=== PATIENT | female | born 1955 | race Caucasian/White ===

== ENCOUNTER 2019-02-18 12:01 | Inpatient (IN) ==
[2019-02-18 12:39] LABS: Basophils # (auto) 0.04 K/uL (0-0.2); Basophils % (auto) 1.1 %; Eosinophils # (auto) 0.11 K/uL (0-0.5); Eosinophils % (auto) 2.9 %; Hematocrit (blood only) 37.4 % (37-47); Hemoglobin 12.8 g/dL (12.0-16.0); Lymphocytes # (auto) 0.87 K/uL (1.2-3.4); Lymphocytes % (auto) 23.1 %; Mean Corpuscular Hgb Conc 34.2 g/dL (32-36); Mean Corpuscular Volume 104.2 fL (80-100); Mean Platelet Volume 10.1 fL (7.4-10.4); Monocytes # (auto) 0.55 K/uL (0.11-0.59); Monocytes % (auto) 14.6 %; Neutrophils # (auto) 2.19 K/uL (1.4-6.5); Neutrophils % (auto) 58.3 %; Platelet Count 258 K/uL (130-400); RDW Coefficient of Variation 12.4 % (11.5-14.5); RDW Standard Deviation 47.1 fL (36.4-46.3); Red Blood Count 3.59 M/uL (4.2-5.4); White Blood Count 3.76 K/uL (4.8-10.8)
--- NOTE | 2019-02-18 12:46 | CT Scan Report ---
CT head/brain wo con CT DOSE: 767.83 mGy.cm HISTORY: Mental status change altered loc TECHNIQUE: Multiaxial CT images of the head were performed without the use of intravenous contrast. A dose lowering technique was utilized adhering to the principles of ALARA. Comparison: None. Findings: The paranasal sinuses and mastoid air cells are clear. The calvarium and skull base are int act. The ventricles and sulci are within normal limits. There is no mass, hematoma, midline shift, or acute infarct. Mild atrophy and chronic small vessel change. Impression: No acute intracranial abnormality. Mild age-related atrophy and chronic small vessel change. The above report was generated using voice recognition software. It may contain grammatical, syntax or spelling errors. Electronically signed by: Rell Ambrocio M.D. 02/18/2019 12:45 PM
--- NOTE | 2019-02-18 12:49 | XRay Report ---
XR chest 1V portable CLINICAL HISTORY: weakness dyspnea COMPARISON STUDY: No previous studies for comparison. FINDINGS: The bones soft tissues and hemidiaphragms are normal. The cardiomediastinal silhouette is n ormal. The lungs are clear. The pulmonary vasculature is normal. IMPRESSION: Negative chest. The above report was generated using voice recognition software. It may contain grammatical, syntax or spelling errors. Electronically signed by: Rell Ambrocio M.D. 02/18/2019 12:48 PM
[2019-02-18 12:51] LABS: Alanine Aminotransferase 22 U/L (12-78); Albumin Level 4.1 gm/dl (3.4-5.0); Aspartate Aminotransferase 15 U/L (15-37); BUN Creatinine Ratio 7.5 (10-20); Blood Urea Nitrogen 7 mg/dl (7-18); Calcium 10.4 mg/dl (8.5-10.1); Carbon Dioxide 22 mmol/L (21-32); Chloride 109 mmol/L (98-107); Creatinine Clr Calc Pharmacy 44.3 ml/min; Est GFR (African American) 72.4; Est GFR (Non-African American) 62.5; Glucose 90 mg/dl (70-99); Potassium 3.5 mmol/L (3.5-5.1); Sodium 140 mmol/L (136-145)
[2019-02-18 13:02] LABS: Albumin Globulin Ratio 1.5 (0.9-2); Alkaline Phosphatase 60 U/L (45-117); Bilirubin,Total 0.5 mg/dl (0.2-1); Globulin 2.8 gm/dl (2.5-4.0); Total Protein 6.9 gm/dl (6.4-8.2); Troponin I < 0.015 ng/ml (0-0.045)
[2019-02-18 13:13] LABS: Acetaminophen < 2 ug/ml (10-30); Lithium 1.8 mmol/L (0.6-1.2)
[2019-02-18 13:38] LABS: Appearance Urine Clear (Clear); Bacteria Urine Automated Negative (Negative); Bilirubin Urine Negative (Negative); Blood Urine Negative (Negative); Color Urine Yellow; Epithelial Cell Urine Auto >30 /lpf (0-5); Glucose Urine UA Negative (Negative); Ketones Urine 1+ (Negative); Leukocyte Esterase Urine 2+ (Negative); Nitrite Urine Negative (Negative); Protein Urine Negative (Negative); RBC Urine Automated 0-4 /hpf (0-4); Specific Gravity Urine 1.012 (1.000-1.030); Urobilinogen Urine Negative (Negative)
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
[2019-02-18] MEDS ORDERED: ALBUTEROL HFA 8 GM INHALER INH PRN (15:09)
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
[2019-02-18] MEDS ORDERED: PHARMACIST DISCHARGE MED REC CONSULT PRN (17:19)
[2019-02-18] MEDS ORDERED: THIAMINE HCL 100 MG in SYRINGE 9 ML IV ONE (18:15)
[2019-02-18 18:32] LABS: Prothrombin Time 10.2 Seconds (9.0-12.0)
--- NOTE | 2019-02-18 20:23 | Magnetic Resonance Report ---
MRI OF THE BRAIN WITHOUT IV CONTRAST CLINICAL HISTORY: Change in mental status. COMPARISON STUDY: CT of the brain dated 02/18/2019. TECHNIQUE: MRI of the brain was performed utilizing various T1 and T2-weighted sequences in the axial , sagittal, and coronal planes. IV contrast was not administered for this examination. The Examinatio n is severely compromised by motion artifact. FINDINGS: Brain parenchyma: There is age-related involutional change noting mild subcortical and periventricula r microangiopathic disease. There is no evidence of hemorrhage. There is no mass effect. There is no restricted diffusion to suggest acute ischemia. [place]iz[place]-white matter differentiation is preserved. No ex tra-axial fluid collection is seen. The cerebellar tonsils are normal in configuration. Ventricles, sulci, and cisterns: Prominent secondary to involutional change. Pituitary and sella: Partially empty sella is incidentally noted. Intracranial vasculature: The flow voids at the skull base are intact as imaged. Orbits: The bony orbits are grossly intact. Orbital contents are grossly normal as imaged. Sinuses and mastoids: Mucosal thickening is noted in the left frontal sinus. The remaining paranasal sinuses are clear. There is a left mastoid effusion. Calvarium: Unremarkable. Cervical cord: Partially visualized cervical spinal cord is gross normal in morphology and signal int ensity. IMPRESSION: There is no evidence of hemorrhage, mass effect, or acute ischemia noting a severely rita on compromised examination. Electronically signed by: Lai Luque M.D. 02/18/2019 8:22 PM
[2019-02-18] MEDS: BECLOMETHASONE DIP HFA 40 MCG 8.7G INH INH SCH (20:56)
[2019-02-18] MEDS: HEPARIN SOD 5,000 UNIT/0.5 ML VIAL SQ SCH ×2 (20:56→21:02)
[2019-02-19] MEDS ORDERED: ZOLPIDEM TARTRATE 5 MG TAB PO PRN (00:34)
[2019-02-19] MEDS ORDERED: cloNIDine HCl 0.1 MG TAB PO PRN (00:34)
[2019-02-19] MEDS ORDERED: HydrALAZINE HCL 20 MG/ML VIAL IV PRN (00:41)
[2019-02-19] MEDS ORDERED: HydrALAZINE HCL 20 MG/ML VIAL IV ONE (00:41)
[2019-02-19] MEDS: HEPARIN SOD 5,000 UNIT/0.5 ML VIAL SQ SCH ×3 (06:14→20:24)
[2019-02-19 06:37] LABS: Hematocrit (blood only) 37.9 % (37-47); Hemoglobin 12.8 g/dL (12.0-16.0); Mean Corpuscular Hgb Conc 33.8 g/dL (32-36); Mean Corpuscular Volume 103.8 fL (80-100); Mean Platelet Volume 10.3 fL (7.4-10.4); Platelet Count 269 K/uL (130-400); RDW Coefficient of Variation 12.4 % (11.5-14.5); RDW Standard Deviation 47.4 fL (36.4-46.3); Red Blood Count 3.65 M/uL (4.2-5.4)
[2019-02-19 06:46] LABS: Estimated Average Glucose 94 mg/dl; Hemoglobin A1C 4.9 % (4.5-5.6)
[2019-02-19 07:13] LABS: BUN Creatinine Ratio 8.2 (10-20); Calcium 9.7 mg/dl (8.5-10.1); Est GFR (African American) 91.7; Est GFR (Non-African American) 79.1; Potassium 3.4 mmol/L (3.5-5.1)
[2019-02-19 07:17] LABS: Amphetamines+Metham, Urine Neg (Neg); Barbiturates, Urine Neg (Neg); Benzodiazepine, Urine Neg (Neg); Cocaine, Urine Neg (Neg); MDMA (Ecstacy), Urine Neg (Neg); Methadone, Urine Neg (Neg); Opiate, Urine Neg (Neg); Phencyclidine, Urine Neg (Neg)
[2019-02-19] MEDS: PANTOprazole 40 MG TAB PO SCH (08:28)
[2019-02-19] MEDS: THIAMINE HCL 100 MG TAB PO SCH (08:29)
[2019-02-19] MEDS: BECLOMETHASONE DIP HFA 40 MCG 8.7G INH INH SCH ×2 (08:29→20:24)
[2019-02-19 09:49] LABS: Folate (Folic Acid) 15.51 ng/ml (>5.38)
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
--- NOTE | 2019-02-19 11:06 | Ultrasound Report ---
CAROTID ARTERY ULTRASOUND CLINICAL HISTORY: stroke like symptoms, AMS COMPARISON STUDY: None. TECHNIQUE: Real-time, grayscale, and color Doppler sonography of the carotid and vertebral arteries w as performed. Images were viewed in the transverse and longitudinal planes. FINDINGS: There is mild atherosclerotic plaque. Velocity measurements are listed below. COMMON CAROTID PEAK SYSTOLIC VELOCITY (CM/S): RIGHT 66 LEFT 77 ICA PEAK SYSTOLIC VELOCITY (CM/S): RIGHT 68 LEFT 67 Systolic ratios between the internal to common carotid arteries are normal. Antegrade flow is seen in the vertebral arteries. The external carotid arteries are patent. Blood pressure was not obtained due to IV. IMPRESSION: No evidence of a hemodynamically significant stenosis. Electronically signed by: Naresh Guzman M.D. 02/19/2019 11:05 AM
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
[2019-02-19] MEDS: ACETAMINOPHEN 325 MG TAB PO PRN (17:06)
[2019-02-19] MEDS ORDERED: POTASSIUM CHLORIDE 10 MEQ TABCR PO STA (18:48)
[2019-02-19] MEDS: TRAZODONE HCL 50 MG TAB PO PRN (20:24)
[2019-02-20] MEDS: HEPARIN SOD 5,000 UNIT/0.5 ML VIAL SQ SCH ×3 (05:13→22:16)
[2019-02-20 06:57] LABS: BUN Creatinine Ratio 6.5 (10-20); Calcium 10.1 mg/dl (8.5-10.1); Creatinine Clr Calc Pharmacy 42.3 ml/min; Est GFR (African American) 74.3; Est GFR (Non-African American) 64.1
[2019-02-20] MEDS: BECLOMETHASONE DIP HFA 40 MCG 8.7G INH INH SCH ×2 (08:26→22:15)
[2019-02-20] MEDS: THIAMINE HCL 100 MG TAB PO SCH (08:26)
[2019-02-20] MEDS: PANTOprazole 40 MG TAB PO SCH (08:26)
--- NOTE | 2019-02-20 11:40 | Psychiatric Progress Note ---
Date of Service February 20, 2019 Impression / Recommendations Impression 63 yo female with a diagnosis of bipolar disorder presented with significant lithium toxicity of unclear origin (renal function seems intact). She denies taking other than prescribed and age can impact clearance. Likely present for several weeks given her symptoms of weakness, increased tremor noted at neurology appt in January. Seroquel was reportedly d/c during that time so any manic symptoms could be less controlled. Although the patient is not acutely psychotic or suicidal, I do feel that she is unable to care for herself outside of the hospital due to her bipolar disorder and there is no meaningful collat eral currently available to better understand how she became lithium toxic. Hold psych meds at this time. Avoid benzos and anticholinergics. low dose prn Haldol 1 mg may be appropriate if unwilling to take Seroquel 25 mg prn in acute setting. Primary consult team to reassess patient in am to determine if petition should be filed for ongoing involuntary hospitalization. Risk Factors Assessment Do You Have Access To A Gun?: No Subjective Subjective Patient was seen & assessed and interval progress reviewed with Nursing. Some improvement from yesterday, lithium level still 1.0 this am, confirmed there is a repeat in the am to determine dosing at which to restart lithium (assuming mental status change and her gait issues have resolved). Still requiring 1 assist to bathroom and states she doesn't want to eat. Physical Exam Vital Signs (Past 24 Hours) Last Vital Signs Temp 36.6 C 02/20/19 11:27 Pulse 105 H 02/20/19 11:27 Resp 20 02/20/19 11:27 BP 119/82 02/20/19 11:27 Pulse Ox 96 02/20/19 11:27 Results & Data Laboratory Results Laboratory Results - last 24 hr 02/20/19 02/20/19 05:47 05:47 Sodium 138 Potassium 4.0 D Chloride 110 H Carbon Dioxide 25 Anion Gap 3.0 BUN 6 L Creatinine 0.94 Est Cr Clr Drug Dosing 42.3 Est GFR ( Amer) 74.3 Est GFR (Non-Af Amer) 64.1 BUN/Creatinine Ratio 6.5 L Glucose 95 Calcium 10.1 [place] 1.0 Current Inpatient Medications Current Inpatient Medications: Current Inpatient Medications Acetaminophen (Tylenol) 650 mg PO Q6 PRN PRN Reason: Pain Stop: 03/21/19 16:44 Last Admin: 02/19/19 17:06 Dose: 650 mg Documented by: Albuterol (Ventolin Hfa) 2 puffs INH Q4H PRN PRN Reason: Shortness Of Breath Stop: 03/20/19 15:08 Beclomethasone Dipropionate (Qvar 40 Mcg) 1 puffs INH BID [facility] Stop: 03/20/19 20:59 Last Admin: 02/20/19 08:26 Dose: 1 puffs Documented by: Clonidine HCl (Catapres) 0.1 mg PO Q4H PRN PRN Reason: Hypertension Stop: 03/21/19 00:33 Heparin Sodium (Porcine) (Heparin Sodium (Porcine)) 5,000 units SQ Q8 [facility] Stop: 03/20/19 21:59 Last Admin: 02/20/19 05:13 Dose: 5,000 units Documented by: Hydralazine HCl (Hydralazine Hcl) 5 mg IV Q8H PRN PRN Reason: SBP>180 Stop: 03/21/19 00:44 Pantoprazole Sodium (Protonix) 40 mg PO DAILY [facility] Stop: 03/21/19 08:59 Last Admin: 02/20/19 08:26 Dose: 40 mg Documented by: Ranitidine HCl (Zantac) 150 mg PO BID [facility] Stop: 03/20/19 20:59 Last Admin: 02/20/19 08:26 Dose: 150 mg Documented by: Thiamine HCl (Vitamin B-1) 100 mg PO QAM [facility] Stop: 03/21/19 08:59 Last Admin: 02/20/19 08:26 Dose: 100 mg Documented by: Trazodone HCl (Desyrel) 50 mg PO HS PRN PRN Reason: sleep Stop: 03/21/19 20:59 Last Admin: 02/19/19 20:24 Dose: 50 mg Documented by: Zolpidem Tartrate (Ambien) 5 mg PO HS PRN PRN Reason: Sleep Stop: 03/21/19 00:33 Last Admin: 02/19/19 00:54 Dose: 5 mg Documented by:
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
[2019-02-20] MEDS: ACETAMINOPHEN 325 MG TAB PO PRN ×2 (16:34→18:47)
--- NOTE | 2019-02-20 20:37 | Progress Note ---
DATE: 02/20/2019 I am seeing Mrs. Marie in followup of change in mental status. As noted, MRI of the brain normal. Carotid ultrasound showed no significant stenosis. B12 and folate were unremarkable. The patient's lithium level is 1 today. PHYSICAL EXAMINATION: The patient is awake, alert, oriented to year and place. No aphasia. There is a mild flattening of the left nasolabial fold. There is symmetric strength, very mild tremor on intention. IMPRESSION: Gait dysfunction, probably related to lithium toxicity. Continue to monitor. MRI brain, cervical spine nonrevealing in terms of gait dysfunction. No evidence of B12 or folate deficiency. Doubt the patient has been having transient ischemic attacks as she reports ongoing and intermittent difficulty with word finding. Once the patient is discharged, she can see us in followup to see if she is at baseline balance asher. Deferred to physical therapy as to whether or not she will need any inpatient therapy. MTDD
[2019-02-20] MEDS: TRAZODONE HCL 50 MG TAB PO PRN (22:29)
[2019-02-21] MEDS: HEPARIN SOD 5,000 UNIT/0.5 ML VIAL SQ SCH ×3 (05:09→21:55)
[2019-02-21] MEDS: TRAZODONE HCL 50 MG TAB PO PRN ×2 (05:10→21:54)
[2019-02-21 05:41] LABS: Hematocrit (blood only) 40.1 % (37-47); Hemoglobin 13.7 g/dL (12.0-16.0); Mean Corpuscular Hgb Conc 34.2 g/dL (32-36); Mean Corpuscular Volume 103.1 fL (80-100); Mean Platelet Volume 9.8 fL (7.4-10.4); Platelet Count 273 K/uL (130-400); RDW Coefficient of Variation 12.7 % (11.5-14.5); RDW Standard Deviation 47.7 fL (36.4-46.3); Red Blood Count 3.89 M/uL (4.2-5.4); White Blood Count 4.62 K/uL (4.8-10.8)
[2019-02-21 06:27] LABS: Est GFR (African American) 67.3; Est GFR (Non-African American) 58.1; Potassium 3.9 mmol/L (3.5-5.1)
[2019-02-21 06:28] LABS: Calcium 10.4 mg/dl (8.5-10.1)
[2019-02-21] MEDS: THIAMINE HCL 100 MG TAB PO SCH (08:41)
[2019-02-21] MEDS: BECLOMETHASONE DIP HFA 40 MCG 8.7G INH INH SCH ×2 (08:41→20:32)
[2019-02-21] MEDS: PANTOprazole 40 MG TAB PO SCH (08:42)
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
[2019-02-21] MEDS ORDERED: LITHIUM CARBONATE 300 MG TAB PO SCH (21:00)
[2019-02-22] MEDS: HEPARIN SOD 5,000 UNIT/0.5 ML VIAL SQ SCH ×2 (06:29→14:41)
[2019-02-22] MEDS: BECLOMETHASONE DIP HFA 40 MCG 8.7G INH INH SCH (08:03)
[2019-02-22] MEDS: THIAMINE HCL 100 MG TAB PO SCH (08:03)
[2019-02-22] MEDS: PANTOprazole 40 MG TAB PO SCH (08:03)
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
== END 2019-02-22 17:53 | disposition home health service (06) | DRG 917 ==
LOC: ED 12:01 → 2N 12:01 → SUATTDRO 15:07 → 2N 16:46 → 4E 02-20 23:11

== ENCOUNTER 2019-03-07 17:21 | Inpatient (IN) ==
[2019-03-07 18:40] LABS: Appearance Urine Clear (Clear); Bacteria Urine Automated Negative (Negative); Bilirubin Urine Negative (Negative); Blood Urine Negative (Negative); Cast Urine Automated 0 /lpf (0-5); Color Urine Yellow; Glucose Urine UA Negative (Negative); Ketones Urine Negative (Negative); Leukocyte Esterase Urine Trace (Negative); Nitrite Urine Negative (Negative); Protein Urine Negative (Negative); RBC Urine Automated 0-4 /hpf (0-4); Specific Gravity Urine 1.013 (1.000-1.030); Urobilinogen Urine Negative (Negative)
[2019-03-07 18:58] LABS: Basophils # (auto) 0.03 K/uL (0-0.2); Basophils % (auto) 0.6 %; Eosinophils # (auto) 0.16 K/uL (0-0.5); Eosinophils % (auto) 3.1 %; Hematocrit (blood only) 38.3 % (37-47); Hemoglobin 12.9 g/dL (12.0-16.0); Immature Granulocytes # (auto) 0.02 K/uL (0.00-0.02); Immature Granulocytes % (auto) 0.4 %; Lymphocytes # (auto) 1.13 K/uL (1.2-3.4); Lymphocytes % (auto) 22.1 %; Mean Corpuscular Hgb Conc 33.7 g/dL (32-36); Mean Corpuscular Volume 104.6 fL (80-100); Mean Platelet Volume 9.7 fL (7.4-10.4); Monocytes # (auto) 0.61 K/uL (0.11-0.59); Monocytes % (auto) 11.9 %; Neutrophils # (auto) 3.16 K/uL (1.4-6.5); Neutrophils % (auto) 61.9 %; Platelet Count 270 K/uL (130-400); RDW Coefficient of Variation 12.9 % (11.5-14.5); RDW Standard Deviation 49.2 fL (36.4-46.3); Red Blood Count 3.66 M/uL (4.2-5.4); White Blood Count 5.11 K/uL (4.8-10.8)
[2019-03-07 19:13] LABS: Alanine Aminotransferase 18 U/L (12-78); Albumin Level 4.3 gm/dl (3.4-5.0); Aspartate Aminotransferase 14 U/L (15-37); BUN Creatinine Ratio 8.8 (10-20); Blood Urea Nitrogen 8 mg/dl (7-18); Calcium 11.2 mg/dl (8.5-10.1); Carbon Dioxide 24 mmol/L (21-32); Chloride 108 mmol/L (98-107); Est GFR (African American) 74.3; Est GFR (Non-African American) 64.1; Glucose 97 mg/dl (70-99); Magnesium 2.3 mg/dl (1.8-2.4); Potassium 3.5 mmol/L (3.5-5.1); Sodium 140 mmol/L (136-145)
--- NOTE | 2019-03-07 19:20 | CT Scan Report ---
CT head/brain wo con CLINICAL HISTORY: 63 years-old Female with confusion. Acute confusion with altered mental status TECHNIQUE: Multiple axial CT images of the head were obtained without contrast. A dose lowering tech nique was utilized adhering to the principles of ALARA. CT DOSE: 537.48 mGy.cm COMPARISON: Head CT and brain MRI 02/18/2018. FINDINGS: No acute intracranial hemorrhage, midline shift, intracranial mass, hydrocephalus, territorial ischem ia or abnormal extra-axial collection. Age-related involutional changes. Ill-defined white matter hyp odensities suggest chronic microvascular ischemic disease. Cerebral vascular calcifications are noted . The calvarium is intact. Trace mastoid effusions. Completely opacified left frontal sinus with mild pleural thickening of the ethmoid and sphenoid sinuses. Soft tissues and orbits are unremarkable. IMPRESSION: No acute intracranial abnormality. The above report was generated using voice recognition software. It may contain grammatical, syntax o r spelling errors. Electronically signed by: Rommel Radford M.D. 03/07/2019 7:19 PM
[2019-03-07 19:24] LABS: Albumin Globulin Ratio 1.3 (0.9-2); Alkaline Phosphatase 74 U/L (45-117); Bilirubin,Total 0.5 mg/dl (0.2-1); Globulin 3.3 gm/dl (2.5-4.0); Total Protein 7.6 gm/dl (6.4-8.2); Troponin I < 0.015 ng/ml (0-0.045)
[2019-03-07 19:39] LABS: Acetaminophen < 2 ug/ml (10-30); Lithium 1.3 mmol/L (0.6-1.2); Salicylate < 1.7 mg/dl (2.8-20)
[2019-03-07 21:39] LABS: Amphetamines+Metham, Urine Neg (Neg); Barbiturates, Urine Neg (Neg); Benzodiazepine, Urine Neg (Neg); Cocaine, Urine Neg (Neg); MDMA (Ecstacy), Urine Neg (Neg); Methadone, Urine Neg (Neg); Opiate, Urine Neg (Neg); Phencyclidine, Urine Neg (Neg)
[2019-03-07] MEDS ORDERED: SODIUM CHLORIDE 0.9% 500 ML IV ONE (22:09)
--- NOTE | 2019-03-08 00:10 | Emergency Department Note ---
Entered by Cris Handy acting as a scribe for History of Present Illness General Chief complaint: Mental Health Evaluation Stated complaint: mhid Time Seen by Provider: 03/07/19 17:44 Source: patient History of Present Illness Onset (ago): hour(s) (today) Pain Consistency: + other (episode ) Quality: + other (need for mental health evaluation) Associated symptoms: + other (negative runny nose; negative abdominal pain; negative urinary symptoms); no cough The patient is a 63 year old female who presents to the Emergency Room with complaints of a need for a mental health evaluation today, per the office of aging. Per the office of aging, on a routine check of the patient's living situation, there was minimal food present. Per nursing staff, the patient has a history of bipolar disorder. The patient denies cough, runny nose, abdominal pain, and urinary symptoms. Per office of aging, the patient is close to her baseline. The patient's history and physical are limited secondary to confusion. Per nursing staff, the patient was recently admitted for confusion secondary to calcium versus lithium level. Home Medications Home Medications Medication Instructions Recorded Confirmed Type Qvar RediHaler 1 puff INHALATION BID 02/18/19 03/07/19 History albuterol sulfate 2 puff INHALATION Q4H PRN 02/18/19 03/07/19 History omeprazole 20 mg PO DAILY 02/18/19 03/07/19 History oxybutynin chloride 10 mg PO DAILY 02/18/19 03/07/19 History quetiapine 100 mg PO HS 02/18/19 03/07/19 History ranitidine HCl 150 mg PO BID 02/18/19 03/07/19 History trazodone 50 mg PO HS 02/18/19 03/07/19 History lithium carbonate 300 mg PO HS 30 Days #30 tab 02/22/19 03/07/19 Rx Allergies Allergy/AdvReac Type Severity Reaction Status Date / Time No Known Allergies Allergy Unknown Verified 02/18/19 14:23 Past Med/Surg History Medical History Bipolar 1 disorder CA in situ breast Macrocytosis Osteoporosis Vocal cord bowing Surgical History History of appendectomy Family History Other No pertinent family history in first degree relatives Social History Preferred Language: Armenian Communication Ability: Effective Beliefs That Will Affect Care: None Current Living Situation: Alone and Personal Care Facility Feels Safe at Home: Yes Smoking Status: Unknown if ever smoked Hx Alcohol Use: No Hx Substance Use: No Review of Systems The patient's history and physical are limited secondary to confusion. Physical Exam Vital Signs Vital Signs - 24 hr 03/07/19 17:40 03/07/19 20:00 03/07/19 22:40 Temperature 36.8 C Temperature Source Oral Sepsis Recent Fever Within 48 Hours No Sepsis New/Unexplained Change in Mental Status No Sepsis Action Taken by Nursing No Action Required Pulse Rate 90 Pulse Rate [Right Finger] 81 67 Pulse Rhythm Regular Pulse Strength Normal Respiratory Rate 20 18 18 Respiratory Effort / Characteristics Non-Labored Spontaneous Respiratory Depth Normal Respiratory Pattern Regular Blood Pressure 194/112 H Blood Pressure [Left Arm] 171/97 H 134/76 Blood Pressure Mean 139 Blood Pressure Mean [Left Arm] 121 95 Blood Pressure Position Sitting Blood Pressure Position [Left Arm] Lying Pulse Oximetry 93 98 98 Oxygen Delivery Method Room Air GENERAL: Sitting on edge of bed. Disheveled. no distress, non-toxic EYE EXAM: normal conjunctiva, PERRL and EOM's intact OROPHARYNX: no exudate, no erythema, lips, buccal mucosa, and tongue normal and mucous membranes are moist NECK: supple, no nuchal rigidity, no adenopathy, non-tender LUNGS: Clear to auscultation. Normal chest wall mechanics HEART: no murmurs, S1 normal and S2 normal ABDOMEN: abdomen soft, non-tender, normo-active bowel sounds, no masses, no rebound or guarding. BACK: Back is symmetrical on inspection and there is no deformity, no midline tenderness, no CVA tenderness. SKIN: no rashes and no bruising UPPER EXTREMITIES: upper extremities are grossly normal. LOWER EXTREMITIES: No pitting edema. NEURO EXAM: Awake, not oriented to place, year, or month. cranial nerves II-XII grossly intact, normal speech, no gross weakness of arms, no gross weakness of legs. No drift. Finger to nose intact. Gross sensation intact. Course ED COURSE: Vital signs were reviewed and showed hypertensive. The patients medical record was reviewed The above diagnostic studies were performed and reviewed. ED treatments and interventions as stated above. 1745: The patient was evaluated in room A5. A complete history and physical examination was performed. 2199: Upon reevaluation, the patient is doing well.I discussed my findings with the patient and she understands and agrees with the treatment plan. Based on the patients age, coexisting illnesses, exam and lab findings the decision to treat as an inpatient was made. The patient remained stable while under my care. 2208: [facility] for further evaluation. Administered Medications Discontinued Medications Sodium Chloride (Nss) 500 mls @ 999 mls/hr IV .Q31M ONE Stop: 03/07/19 22:39 Last Admin: 03/07/19 23:03 Dose: 999 mls/hr Documented by: [id number] Medical Decision Making Differential Diagnosis Differential diagnosis: Etiologies such as mood disorder, infection, hypoglycemia, electrolyte abnormalities, cardiac sources, intracerebral event, toxicologic, neurologic, as well as others were entertained. Medical Records Attestation: I reviewed the patient's medical records. Home Medications Current Medication List: was personally reviewed by me Laboratory Data Attestation: I reviewed the patient's lab results. Result diagrams: 03/07/19 18:27 03/07/19 18:27 Lab Results 03/07/19 03/07/19 03/07/19 Range/Units 18:21 18:21 18:27 WBC 5.11 (4.8-10.8) K/uL RBC 3.66 L (4.2-5.4) M/uL Hgb 12.9 (12.0-16.0) g/dL Hct 38.3 (37-47) % MCV 104.6 H (80-100) fL MCH 35.2 H (25-34) pg MCHC 33.7 (32-36) g/dL RDW Std Deviation 49.2 H (36.4-46.3) fL RDW Coeff of Nemes[place] 12.9 (11.5-14.5) % Plt Count 270 (130-400) K/uL MPV 9.7 (7.4-10.4) fL Immature Gran % (Auto) 0.4 % Neut % (Auto) 61.9 % Lymph % (Auto) 22.1 % Tucker % (Auto) 11.9 % Eos % (Auto) 3.1 % Baso % (Auto) 0.6 % Immature Gran # (Auto) 0.02 (0.00-0.02) K/uL Neut # (Auto) 3.16 (1.4-6.5) K/uL Lymph # (Auto) 1.13 L (1.2-3.4) K/uL Tucker # (Auto) 0.61 H (0.11-0.59) K/uL Eos # (Auto) 0.16 (0-0.5) K/uL Baso # (Auto) 0.03 (0-0.2) K/uL Sodium (136-145) mmol/L Potassium (3.5-5.1) mmol/L Chloride (98-107) mmol/L Carbon Dioxide (21-32) mmol/L Anion Gap (3-11) BUN (7-18) mg/dl Creatinine (0.6-1.2) mg/dl Est Cr Clr Drug Dosing Est GFR ( Amer) Est GFR (Non-Af Amer) BUN/Creatinine Ratio (10-20) Glucose (70-99) mg/dl Calcium (8.5-10.1) mg/dl Magnesium (1.8-2.4) mg/dl Total Bilirubin (0.2-1) mg/dl AST (15-37) U/L ALT (12-78) U/L Alkaline Phosphatase (45-117) U/L Troponin I (0-0.045) ng/ml Total Protein (6.4-8.2) gm/dl Albumin (3.4-5.0) gm/dl Globulin (2.5-4.0) gm/dl Albumin/Globulin Ratio (0.9-2) TSH (0.300-4.500) uIu/ml Urine Color Yellow Urine Appearance Clear (Clear) Urine pH 7.0 (4.5-7.5) Ur Specific [place] 1.013 (1.000-1.030) Urine Protein Negative (Negative) Urine Glucose (UA) Negative (Negative) Urine Ketones Negative (Negative) Urine Blood Negative (Negative) Urine Nitrite Negative (Negative) Urine Bilirubin Negative (Negative) Urine Urobilinogen Negative (Negative) Ur Leukocyte Esterase Trace H (Negative) Urine WBC (Auto) 1-5 (0-5) /hpf Urine RBC (Auto) 0-4 (0-4) /hpf U Hyaline Cast (Auto) 0 (0-5) /lpf U Epithel Cells (Auto) 5-10 H (0-5) /lpf Urine Bacteria (Auto) Negative (Negative) Salicylates (2.8-20) mg/dl Urine Opiates Screen Neg (Neg) Ur Methadone, Qual Neg (Neg) Acetaminophen (10-30) ug/ml Urine Barbiturates Neg (Neg) Ur Phencyclidine (PCP) Neg (Neg) U Amphetamin/Meth Scrn Neg (Neg) MDMA (Ecstasy) Screen Neg (Neg) U Benzodiazepines Scrn Neg (Neg) [place] (0.6-1.2) mmol/L Ur Cocaine Metabolite Neg (Neg) U Marijuana (THC) Screen Neg (Neg) Ethyl Alcohol mg/dL (0-3) mg/dl 03/07/19 03/07/19 03/07/19 Range/Units 18:27 18:27 18:27 WBC (4.8-10.8) K/uL RBC (4.2-5.4) M/uL Hgb (12.0-16.0) g/dL Hct (37-47) % MCV (80-100) fL MCH (25-34) pg MCHC (32-36) g/dL RDW Std Deviation (36.4-46.3) fL RDW Coeff of Nemesio (11.5-14.5) % Plt Count (130-400) K/uL MPV (7.4-10.4) fL Immature Gran % (Auto) % Neut % (Auto) % Lymph % (Auto) % Tucker % (Auto) % Eos % (Auto) % Baso % (Auto) % Immature Gran # (Auto) (0.00-0.02) K/uL Neut # (Auto) (1.4-6.5) K/uL Lymph # (Auto) (1.2-3.4) K/uL Tucker # (Auto) (0.11-0.59) K/uL Eos # (Auto) (0-0.5) K/uL Baso # (Auto) (0-0.2) K/uL Sodium 140 (136-145) mmol/L Potassium 3.5 (3.5-5.1) mmol/L Chloride 108 H (98-107) mmol/L Carbon Dioxide 24 (21-32) mmol/L Anion Gap 8.0 (3-11) BUN 8 (7-18) mg/dl Creatinine 0.94 (0.6-1.2) mg/dl Est Cr Clr Drug Dosing Not Reportable Est GFR ( Amer) 74.3 Est GFR (Non-Af Amer) 64.1 BUN/Creatinine Ratio 8.8 L (10-20) Glucose 97 (70-99) mg/dl Calcium 11.2 H (8.5-10.1) mg/dl Magnesium 2.3 (1.8-2.4) mg/dl Total Bilirubin 0.5 (0.2-1) mg/dl AST 14 L (15-37) U/L ALT 18 (12-78) U/L Alkaline Phosphatase 74 (45-117) U/L Troponin I < 0.015 (0-0.045) ng/ml Total Protein 7.6 (6.4-8.2) gm/dl Albumin 4.3 (3.4-5.0) gm/dl Globulin 3.3 (2.5-4.0) gm/dl Albumin/Globulin Ratio 1.3 (0.9-2) TSH 2.280 (0.300-4.500) uIu/ml Urine Color Urine Appearance (Clear) Urine pH (4.5-7.5) Ur Specific [place] (1.000-1.030) Urine Protein (Negative) Urine Glucose (UA) (Negative) Urine Ketones (Negative) Urine Blood (Negative) Urine Nitrite (Negative) Urine Bilirubin (Negative) Urine Urobilinogen (Negative) Ur Leukocyte Esterase (Negative) Urine WBC (Auto) (0-5) /hpf Urine RBC (Auto) (0-4) /hpf U Hyaline Cast (Auto) (0-5) /lpf U Epithel Cells (Auto) (0-5) /lpf Urine Bacteria (Auto) (Negative) Salicylates < 1.7 L (2.8-20) mg/dl Urine Opiates Screen (Neg) Ur Methadone, Qual (Neg) Acetaminophen < 2 L (10-30) ug/ml Urine Barbiturates (Neg) Ur Phencyclidine (PCP) (Neg) U Amphetamin/Meth Scrn (Neg) MDMA (Ecstasy) Screen (Neg) U Benzodiazepines Scrn (Neg) [place] 1.3 H (0.6-1.2) mmol/L Ur Cocaine Metabolite (Neg) U Marijuana (THC) Screen (Neg) Ethyl Alcohol mg/dL < 3.0 (0-3) mg/dl Imaging Data Radiologist's Impression: Radiology results as stated below per my review and the radiologist's interpretation: CT head/brain wo con CLINICAL HISTORY: 63 years-old Female with confusion. Acute confusion with altered mental status TECHNIQUE: Multiple axial CT images of the head were obtained without contrast. A dose lowering technique was utilized adhering to the principles of ALARA. CT DOSE: 537.48 mGy.cm COMPARISON: Head CT and brain MRI 02/18/2018. FINDINGS: No acute intracranial hemorrhage, midline shift, intracranial mass, hydrocephalus, territorial ischemia or abnormal extra-axial collection. Age- related involutional changes. Ill-defined white matter hypodensities suggest chronic microvascular ischemic disease. Cerebral vascular calcifications are noted. The calvarium is intact. Trace mastoid effusions. Completely opacified left frontal sinus with mild pleural thickening of the ethmoid and sphenoid sinuses. Soft tissues and orbits are unremarkable. IMPRESSION: No acute intracranial abnormality. The above report was generated using voice recognition software. It may contain grammatical, syntax or spelling errors. Electronically signed by: Rommel Radford M.D. 03/07/2019 7:19 PM Blood Pressure Blood Pressure Findings: Elevated blood pressure Blood Pressure Disposition: elevated BP felt to be situational MDM Narrative Patient is a 63-year-old female who presents the ER for confusion. Patient is not oriented to place, year, month or residents. IV was established and labs were obtained. Labs showed no significant leukocytosis or anemia. BMP along with bilirubin LFTs and troponin was unremarkable. TSH was normal. Calcium was elevated as well as lithium. Previous notes were reviewed and neurology did question if the confusion was secondary to the lithium versus calcium. Patient was given IV fluids. Tylenol and salicylates were negative. Remainder of tox was negative. Alcohol was negative. Patient was updated bedside. CT of was negative. With her confusion I did discuss case with the hospitalist as I did not feel that she would be able to be admitted to psych. Previous review of her note upon discharge she was that she was oriented to person place and residents. This is not the case at this time. Uncertain of the cause encephalopathy. Impression & Plan Altered mental status, Elevated lithium level, Hypercalcemia Discharge Plan Visit Data Chief Complaint: Mental Health Evaluation Stated Complaint: mhid ED Provider: Casper Corrales Discharge Problem: Altered mental status, Elevated lithium level, Hypercalcemia Patient Disposition: Being Evaluated by Hospitalist Forms Stand Alone Forms: My [facility] Prescriptions Prescriptions: No Action trazodone 50 mg tablet 50 mg PO HS RF: 0 quetiapine 100 mg tablet 100 mg PO HS RF: 0 ranitidine HCl 150 mg tablet 150 mg PO BID RF: 0 albuterol sulfate 90 mcg/actuation HFA aerosol inhaler 2 puff inhalation Q4H PRN (Reason: Shortness Of Breath) RF: 0 oxybutynin chloride 10 mg tablet extended release 24hr 10 mg PO DAILY RF: 0 omeprazole 20 mg capsule,delayed release(DR/EC) 20 mg PO DAILY RF: 0 Qvar RediHaler 40 mcg/actuation HFA aerosol breath activated 1 puff inhalation BID RF: 0 lithium carbonate 300 mg tablet 300 mg PO HS 30 Days Qty: 30 RF: 3 Referrals Referrals: Neetu Caruso PA-C [Primary Care Provider] - Discharge Problem: Altered mental status Qualifiers: Altered mental status type: unspecified Qualified Code(s): R41.82 - Altered mental status, unspecified The scribe's documentation has been prepared under my direction and personally reviewed by me in its entirety. I confirm that the note above accurately reflect s all work, treatment, procedures, and medical decision making performed by me.
--- NOTE | 2019-03-08 01:37 | History and Physical Report ---
DATE OF ADMISSION: 03/08/2019 CHIEF COMPLAINT: Mental health evaluation. HISTORY OF PRESENT ILLNESS: This is a 63-year-old female with past medical history significant for bipolar disorder, tardive dyskinesia. Was recently in the hospital with confusion, encephalopathy, thought to be from possible hypercalcemia or lithium toxicity. Brain MRI was done which was negative for any strokes, improved, and was discharged on 02/22/2019 with a reduced dose of lithium and also restarted Seroquel at reduced dose. She is living alone in personal long term and [employer] is checking on her. The patient says some people come and help her with the groceries and give her food. When [employer] went to routine check, in the patient's living station, there was minimal food present. As per Grivy the patient seems to be close to her baseline as per the ER notes. Patient has some pressured speech, but alert and oriented. Can tell her name, her date of , and knows that she is in the [facility]. She says she does not know the dates. Answering appropriately. Denies any headache, no blurred visions, no sore throat. Appetite is okay, eating fine. No difficulty swallowing. Denies any chest pain. She says she has some chest discomfort, but then she says she is fine. Denies any nausea or abdominal pain. She is somewhat wobbly on ambulation. She says her bowels and bladder are working fine. Denies any fevers, no cough. Currently, resting comfortably. ALLERGIES: MORPHINE SULFATE. PAST MEDICAL HISTORY: As mentioned above and also carcinoma of the breast in situ, macrocytosis, osteoporosis, vocal cord bowing. PAST SURGICAL HISTORY: Appendectomy. FAMILY HISTORY: No pertinent family history. SOCIAL HISTORY: Lives alone in personal care facility. No alcohol abuse. No substance abuse per records. Smoking status unknown. REVIEW OF SYMPTOMS: As per HPI. Rest of the review of symptoms negative. MEDICATIONS: The patient is on trazodone 50 mg p.o. at bedtime, Zantac 150 mg p.o. b.i.d.,Qvar 1 puff inhalation b.i.d., Seroquel 100 mg at bedtime, oxybutynin 10 mg p.o. daily, omeprazole 20 mg p.o. daily, lithium carbonate 300 mg p.o. at bedtime, albuterol 2 puffs inhalation q. 4 hours p.r.n. PHYSICAL EXAMINATION: GENERAL: The patient is thin and frail, not in acute distress. VITAL SIGNS: Temperature 36.8, pulse 67, respiratory rate 18, blood pressure 134/76, oxygen 98% on room air. HEENT: No pallor, no icterus. NECK: No JVD, no neck masses, no carotid bruits. CARDIOVASCULAR: S1, S2 heard, regular rate and rhythm, no murmur, no gallop. RESPIRATORY SYSTEM: Normal AP diameter. No accessory muscle use. No wheezing, no crackles. ABDOMEN: Soft, bowel sounds present. Nontender. No distention. CENTRAL NERVOUS SYSTEM: Alert and oriented x2. Nonfocal. EXTREMITIES: No edema, no erythema. LABORATORY DATA: WBC 5.1, hemoglobin 12.9, hematocrit 38.3, platelets 270. Sodium 140, potassium 3.5, chloride 108, bicarbonate 24, BUN 8, creatinine 0.9, serum glucose 97, calcium 11.2, magnesium 2.3, total bilirubin 0.5, AST 14, ALT 18, alkaline phosphatase 74. Troponin I less than 0.015. TSH 2.2. Urinalysis negative, trace for leukocyte esterase. Salicylates less than 1.7, acetaminophen less than 2, ethyl alcohol less than 3. Urine drug screen unremarkable except for lithium level of 1.3. IMAGING DATA: CT of the head, no acute intracranial abnormality. ASSESSMENT AND PLAN: This is a 63-year-old female with history of bipolar, who lives alone in a personal long term. [facility] aging agency on routine check found to have very little food at home and brought her to the ER. 1. She had some pressured speech.Mental status seems to be at baseline. Calcium levels and lithium levels are high. The patient is currently resting comfortably and hemodynamically stable. Answers appropriately. Has some pressured speech. 2. [place] toxicity. [place] level is 1.3. The patient has some pressured speech and some ambulatory dysfunction. Borderline high, but we will hold the lithium and check the labs in a.m. and IV fluids and psych consult for adjustment of medications. 3. Hypercalcemia, calcium of 11.2, also possibly contributing to the symptoms. Etiology unclear at this time. Aggressive fluids with normal saline at 150 mL per hour. Repeat labs in the a.m. 4. Tardive dyskinesia. Possibly from her psych medications. 5. Bipolar disorder, holding lithium. Continue Seroquel. Consult psych for further adjustment of medications. 6. Gastroesophageal reflux disease. Continue her home medications. 7. Deep vein thrombosis prophylaxis, sequential compression devices. DISPOSITION: Admit to med/surg tele. Level 1 full code. Social service to help with discharge planning. KANG
[2019-03-08] MEDS ORDERED: ONDANSETRON INJ 2 MG/ML 2 ML VIAL IV PRN (02:05)
[2019-03-08] MEDS ORDERED: NITROGLYCERIN SL 0.4 MG/TAB TAB SL PRN (02:05)
[2019-03-08] MEDS: SODIUM CHLORIDE 0.9% 1000ML 1,000 ML IV SCH ×2 (03:11→07:57)
[2019-03-08 05:34] LABS: Basophils # (auto) 0.03 K/uL (0-0.2); Basophils % (auto) 0.8 %; Eosinophils # (auto) 0.16 K/uL (0-0.5); Eosinophils % (auto) 4.4 %; Hematocrit (blood only) 38.4 % (37-47); Hemoglobin 12.5 g/dL (12.0-16.0); Lymphocytes % (auto) 24.7 %; Mean Corpuscular Hgb Conc 32.6 g/dL (32-36); Mean Corpuscular Volume 105.2 fL (80-100); Monocytes # (auto) 0.35 K/uL (0.11-0.59); Monocytes % (auto) 9.6 %; Neutrophils % (auto) 60.5 %; Platelet Count 279 K/uL (130-400); RDW Standard Deviation 49.7 fL (36.4-46.3); Red Blood Count 3.65 M/uL (4.2-5.4); White Blood Count 3.64 K/uL (4.8-10.8)
[2019-03-08 06:16] LABS: BUN Creatinine Ratio 8.9 (10-20); Calcium 9.3 mg/dl (8.5-10.1); Creatinine Clr Calc Pharmacy 50.5 ml/min; Est GFR (African American) 93.1; Est GFR (Non-African American) 80.3; Magnesium 2.1 mg/dl (1.8-2.4); Potassium 3.5 mmol/L (3.5-5.1)
[2019-03-08] MEDS: PANTOprazole 40 MG TAB PO SCH (07:58)
[2019-03-08] MEDS: BECLOMETHASONE DIP HFA 40 MCG 8.7G INH INH SCH ×2 (07:58→19:36)
[2019-03-08] MEDS: OXYBUTYNIN CHLORIDE XL 5 MG TABCR PO SCH (07:58)
--- NOTE | 2019-03-08 10:10 | Hospitalist Progress Note ---
Date of Service March 08, 2019 Assessment & Plan (1) Elevated lithium level: Improved from 1.3 to 1 with IV fluids -Psych consulted for possible dose adjustment -Concerned that patient is not taking medication appropriately at home (2) Hypercalcemia: Improved from 11.2 to 9.3 in setting of IV fluids -Continue to monitor (3) Bipolar 1 disorder: Holding lithium. Continue Seroquel. Per psych for further adjustment of medications -Does not appear manic but has poor insight/judgement concerning health, medications and living arrangement -Case mgmt consulted -currently living at home with home health but likely to require higher level of care -1 to 1 sitter DVT Ppx: SCDs Code status: FULL PCP: Neetu Caruso PA-C Dispo: Med tele. Discharge planning ordered. Patient seen in collaboration with Dr. Rubin. Please see addendum. Supervising Physician Co-Signing Physician Notes Attending addendum: Patient remains confused, wants to know why she needs to stay in the hospital, she feels fine Wants to take out the environmental monitoring specialist, "do not think there are of any use " Denies of any chest pain, dizzy spell, no hallucination noted Appreciate input from psychiatry One-to-one observation discontinued, as it is making patient more agitated No evidence of self-harm noted Patient will be every 15 minutes check for fall precaution Continue to hold lithium Patient is encouraged to drink more fluids to correct dehydration, refused to keep IV site on CODE STATUS full code Disposition: To be determined Patient showing evidence of failure to thrive, cannot be able to continue to stay in independent living, may need more structured environment and more support PT OT evaluation requested Social service involved with discharge planning Please refer to further documentation by Yuliana Loo PA-C for discussion of other chronic issues Kamila Rubin MD Subjective Patient seen and examined. Feels "completely normal" and desires to go home. Is not sure why she is in hospital, other than her caregiver calling EMS [place]. Denies confusion, hallucinations or SI/HI. Lives at [facility] with home care. Boyfriend no longer at apartment due to restraining order issued against him due to domestic violence. Patient states that she fired care givers yesterday and is very angry about them. Unsure if she is taking medication as prescribed. Has been eating cookies and macaroni & cheese at home. Not drinking much water. Wants to leave so that she can care for cat. Denies fever, chills, headache, lightheadedness, visual changes, chest pain, chest pain, shortness of breath, abdominal pain, nausea, vomiting, dysuria or diarrhea. Feels constipated. Review of Systems Review of Systems: At least ten systems reviewed and negative except as noted in the HPI. Physical Exam Physical Exam: General Appearance: thin female, agitated, moving around bed, labile emotions from agitated to laughing Head: normocephalic, atraumatic Eyes: normal inspection, PERRL, EOMI ENT: hearing grossly normal, pharynx normal (moist mucous membranes) Neck: supple, no JVD, no adenopathy Respiratory/Chest: lungs clear to auscultation. No wheezes, rales or rhonci. No respiratory distress or accessory muscle use Cardiovascular: regular rate, rhythm, no murmur, normal peripheral pulses Abdomen/GI: normal bowel sounds, soft, non-tender to palpation Extremities/Musculoskelatal: normal inspection, no calf tenderness, normal capillary refill, no pedal edema Neurologic/Psych: alert & oriented x 3, labile emotions, poor insight & judgement Skin: normal color, warm/dry Results & Data Vital Signs (Past 12 Hours) Vital Signs Temp Pulse Pulse Resp BP Pulse Ox 03/08/19 08:00 77 03/08/19 07:00 36.8 C 84 16 155/98 H 96 03/08/19 04:00 36.8 C 84 16 179/112 H 97 03/08/19 02:33 81 03/08/19 02:30 166/94 H 03/08/19 01:56 36.7 C 84 16 175/107 H 97 03/08/19 01:55 18 98 03/07/19 22:40 67 18 134/76 98 Laboratory Results Short CBC 03/07/19 03/08/19 Range/Units 18:27 05: WBC 5.11 3.64 L (4.8-10.8) K/uL Hgb 12.9 12.5 (12.0-16.0) g/dL Hct 38.3 38.4 (37-47) % Plt Count 270 279 (130-400) K/uL BMP 03/07/19 03/08/19 18:27 05:16 Sodium 140 142 Potassium 3.5 3.5 Chloride 108 H 113 H Carbon Dioxide 24 22 BUN 8 7 Creatinine 0.94 0.78 Glucose 97 79 Calcium 11.2 H 9.3 D Cardiac Enzymes 03/07/19 Range/Units 18:27 Troponin I < 0.015 (0-0.045) ng/ml Liver Function 03/07/19 Range/Units 18:27 Total Bilirubin 0.5 (0.2-1) mg/dl AST 14 L (15-37) U/L ALT 18 (12-78) U/L Alkaline Phosphatase 74 (45-117) U/L Albumin 4.3 (3.4-5.0) gm/dl Urine 03/07/19 Range/Units 18:21 Urine Color Yellow Urine Appearance Clear (Clear) Urine pH 7.0 (4.5-7.5) Ur Specific Celeste 1.013 (1.000-1.030) Urine Protein Negative (Negative) Urine Glucose (UA) Negative (Negative)
--- NOTE | 2019-03-08 13:51 | Psychiatric Consultation ---
Date of Consultation March 08, 2019 Impression / Recommendations Impression 63-year-old female admitted medically following mental health evaluation suggested by [facility] of Aging. Pt has shown some confusion, which is reported to be "close to baseline" according to documentation; however, is not consistent with patient's perceived functioning at discharge from her last hospitalization. On this provider's assessment, the patient is a poor historian, is unable to relay consistent history, and is disoriented to person, place, and time. Despite this confusion, she denies SI/HI, hallucinations, or clearly delusional thought process. She admits she has been managing her own medications - and it is the concern of our service as well that she may have been taking medications inappropriately at home. [place] level at near-trough was 1.3. Decreased to 1.0 around 0500 this morning. Given hypomanic presentation last admission, will resume lithium at 300mg qHS. It is questioned if patient had been taking both her discharge dose of 300mg in combination with her previously prescribed 450mg dosage - though this cannot be confirmed at this time. Order has been written to re-check lithium in 5 days. Will hold other home medications until we are able to confirm an accurate history of her medications with her home health agency. Psychiatric nurse liaison was requested to have patient sign releases and gather additional data regarding patient's behavior at home as well as upd ated medication list. Will provide additional recommendations after this information is received and reviewed. At this time, patient is disoriented but does not provide sufficient criteria to recommend an inpatient psychiatric admission at this time. Appreciate the opportunity to participate in the care of this patient. Dr. Luciana Tanner was directly involved in review and discussion of the patient's case and participated in medical decision making regarding treatment recommendations. Plan: - Resume lithium at 300mg qHS - Repeat lithium level ordered for 03/13 @ 2100 (prior to HS medications) - Hold other psychiatric medications (quetiapine and trazodone) until collateral information can be gathered - Agree patient is likely experiencing difficulty managing medications and ADLs at home - consider other options to improve outpatient support per case management Risk Factors Assessment Do You Have Access To A Gun?: No CPT Code Initial Consultation: [id number] Psych History Identifying Data 63-year-old female admitted medically on 03/08/19 with reports that the [facility] and requested a mental health evaluation. Pt's lithium was elevated with near-trough reading of 1.3. Pt has a reported history of bipolar disorder and was last seen on our service during her medical admission from 02/18/19 - 02/22/19. Psychiatric consultation was requested to assess for lithium toxicity concerns and make medication recommendations. Only information gathered from documentation is reliable, as patient is a poor historian at time of visit. Chief Complaint "Cookies!" History of Present Illness Jessica Marie is a 63-year-old female admitted medically on 03/08/19 upon referral from [facility] for mental health evaluation. Pt's lithium level at near- trough was found to be 1.3 and patient was admitted for confusion and observation for improvement of lithium and calcium level. Psychiatric consultation was requested to evaluate patient for lithium toxicity concerns and make medication recommendations regarding her history of bipolar disorder. Records from previous hospitalization, current ED documentation, and progress notes were reviewed. Pt's case was reviewed with psychiatric nurse liaison (see separate nursing note for these findings). At time of this provider's assessment, the patient is alert and seated in a chair next to her bed. She exclaims "cookies" as this provider enters the room, then proceeds to tell a somewhat disjointed story about her kicking out her home health nurse due to the nurse "telling on me that I was eating cookies, I never really eat healthy." Pt states she was upset with the home health nurse for having to be in the hospital presently. Majority of information provided by patient is not clearly reliable. She states she was told she had "a stroke, that's what they think." Pt states she manages her own medications - "they are all sitting on my dresser. I pop, pop, pop with water - 8:00 every night." Pt states she has not been utilizing a pill organizer and states she does not receive help from home health nursing in medication management. Pt states her quetiapine had been discontinued "oh probably a month ago", but it was listed on her discharge medication list. She is unable to provide reliable history regarding the medications she is currently taking at home. She states she was unable to follow up with her PCP due to "my ex-boyfriend didn't take me. She'll probably be mad at me, I guess I'll just reschedule." Pt denies SI to this provider, stating "I love my cat, I have to take care of it." Pt denies other acute psychiatric concerns at this time. Past Psychiatric History Previous Psych History: Unclear who prescribes psychiatric medications, believed to be PCP Current Psychiatric Diagnosis: Bipolar I disorder Previous Psych Admissions: None reported Do You Have Access To A Gun?: No History of Previous Suicide Attempt: No Past Medication Trials: Unable to provide Allergies Allergy/AdvReac Type Severity Reaction Status Date / Time No Known Allergies Allergy Unknown Verified 02/18/19 14:23 Home Medications Home Medications Medication Instructions Recorded Confirmed Type Qvar RediHaler 1 puff INHALATION BID 02/18/19 03/07/19 History albuterol sulfate 2 puff INHALATION Q4H PRN 02/18/19 03/07/19 History omeprazole 20 mg PO DAILY 02/18/19 03/07/19 History oxybutynin chloride 10 mg PO DAILY 02/18/19 03/07/19 History quetiapine 100 mg PO HS 02/18/19 03/07/19 History ranitidine HCl 150 mg PO BID 02/18/19 03/07/19 History trazodone 50 mg PO HS 02/18/19 03/07/19 History lithium carbonate 300 mg PO HS 30 Days #30 tab 02/22/19 03/07/19 Rx Family History Unable to provide accurate history Substance Abuse History Unable to provide reliable history Personal History Living Arrangements: Apartment ([facility]) Employment Status: Retired Number Of Children: 2 adult children living out of state Beliefs That Will Affect Care: None Psychological Trauma History Comment: Unable to provide reliable information Patient History Medical History Bipolar 1 disorder CA in situ breast Macrocytosis Osteoporosis Vocal cord bowing Surgical History History of appendectomy Family History Other No pertinent family history in first degree relatives Social History Preferred Language: Armenian Communication Ability: Impaired Communication Ability Comment: CONFUSION Chief Load Dispatcher Required: Yes Beliefs That Will Affect Care: None Current Living Situation: Alone Feels Safe at Home: Yes Safety Concerns: Feels Safe At This Time Smoking Status: Never smoker Second Hand Exposure: No Hx Alcohol Use: Yes Alcohol type: beer Hx Substance Use: No Physical Exam Psychiatric: Orientation: alert and cooperative; + not oriented to person (states "Um, 25...12...oh I don't know."), + not oriented to place ("25, I'm really not sure - why am I so confused") and + not oriented to time (Month = "February"; Year = "February"; Day of week = "Thursday") Apperance: appropriately dressed (in hospital gotee and sera goode) and appropriately groomed; + did not appear stated age (appears older than stated age) Thin-appearing female seated at bedside in no acute distress. Short, white hair is well- groomed. Level of hygiene and hydration appears adequate. Eye Contact: good eye contact Motor Behavior: no abnormal motor movements; + unsteady gait or station (rather unsteady, requiring assistance with ambulation) Speech: + pressured speech (mildly) and normal rate/rhythm/volume of speech (mildly overproductive) Affect: euthymic affect and + irritable affect (when discussing home health nurse) Mood: + irritable mood; no depressed mood and no anxious mood "I'm fine. I don't know why I'm here. I want to go home." Thought Process: + circumstantial thought process; + thought process not linear or logical and + thought process not clear or coherent Thought Content: + preoccupation (with discharge and "cookies") and reality based without delusions though circumstantial thought process, subjects relate to comments made in previous documentation Suicidal Thoughts: denies suicidal thoughts, denies suicidal plan and denies suicidal intent "Oh no, I love my cat" Homicidal Thoughts: denies homicidal thoughts Hallucinations: no auditory hallucinations and no visual hallucinations Cognition: attention grossly intact and language grossly intact Estimated Intelligence: consistent with education level Insight: + impaired insight Judgement: + impaired judgement Vital Signs (Past 24 Hours): Last Vital Signs Temp 36.9 C 03/08/19 11:00 Pulse 81 03/08/19 11:00 Resp 16 03/08/19 11:00 BP 176/90 H 03/08/19 11:00 Pulse Ox 98 03/08/19 11:00 Review of Systems Constitutional: denied Cardiovascular: denied Respiratory: denied Gastrointestinal: reports some recent episodes of diarrhea Neurological: denied Psychiatric: denies symptoms other than stated above Total of at least 10 systems reviewed, pertinent positives as above and in HPI. Results & Data Medications Administered Beclomethasone Dipropionate (Qvar 40 Mcg) 1 puffs INH BID BRADY Stop: 04/07/19 08:59 Last Admin: 03/08/19 07:58 Dose: 1 puffs Documented by: [id number] Sodium Chloride (Nss 1000ml) 1,000 mls @ 150 mls/hr IV .[id number] BRADY Stop: 04/07/19 02:04 Last Admin: 03/08/19 07:57 Dose: 150 mls/hr Documented by: [id number] Infusion: 03/08/19 07:57 Dose: 150 mls/hr Documented by: [id number] Admin: 03/08/19 03:11 Dose: 150 mls/hr Documented by: [id number] Oxybutynin Chloride (Ditropan Xl) 10 mg PO DAILY BRADY Stop: 04/07/19 08:59 Last Admin: 03/08/19 07:58 Dose: 10 mg Documented by: [id number] Pantoprazole Sodium (Protonix) 40 mg PO DAILY BRADY Stop: 04/07/19 08:59 Last Admin: 03/08/19 07:58 Dose: 40 mg Documented by: [id number] Ranitidine HCl (Zantac) 150 mg PO BID BRADY Stop: 04/07/19 08:59 Last Admin: 03/08/19 07:58 Dose: 150 mg Documented by: [id number]
[2019-03-08] MEDS: LITHIUM CARBONATE 300 MG TAB PO SCH (19:34)
[2019-03-08] MEDS ORDERED: TRAZODONE HCL 50 MG TAB PO SCH (21:00)
[2019-03-09 05:38] LABS: Hematocrit (blood only) 35.8 % (37-47); Hemoglobin 11.7 g/dL (12.0-16.0); Mean Corpuscular Hgb Conc 32.7 g/dL (32-36); Mean Corpuscular Volume 105.9 fL (80-100); Mean Platelet Volume 9.2 fL (7.4-10.4); Platelet Count 243 K/uL (130-400); RDW Coefficient of Variation 13.5 % (11.5-14.5); RDW Standard Deviation 52.1 fL (36.4-46.3); Red Blood Count 3.38 M/uL (4.2-5.4); White Blood Count 4.78 K/uL (4.8-10.8)
[2019-03-09 06:06] LABS: BUN Creatinine Ratio 8.3 (10-20); Calcium 9.3 mg/dl (8.5-10.1); Creatinine Clr Calc Pharmacy 43.8 ml/min; Est GFR (African American) 78.3; Est GFR (Non-African American) 67.6; Potassium 3.9 mmol/L (3.5-5.1)
--- NOTE | 2019-03-09 08:06 | Hospitalist Progress Note ---
Date of Service March 09, 2019 Assessment & Plan (1) Elevated lithium level: Improved from 1.3 to 1 with IV fluids -Psych consulted - [place] dose 300 mg q HS restarted. Has requested Med list from Home health agency as concerned if she is taking it appropriately at home. -Repeat [place] level on 03/13/2017 (prior to HS medication) (2) Hypercalcemia: Improved from 11.2 to 9.3 in setting of IV fluids -Continue to monitor (3) Bipolar 1 disorder: Does not appear manic but has poor insight/judgement concerning health, medications and living arrangement -Restarted [place] at 300 mg q HS. -Hold other psychiatric meds (quetiapine and trazodone) until further information is available -Case mgmt consulted -currently living at home with home health but likely to require higher level of care -1 to 1 sitter -Appreciate psychiatry inputs DVT Ppx: SCDs Code status: FULL PCP: Neetu Caruso PA-C Dispo: Medical mx in progress Awaiting further recommendations from psychiatry re : medication changes Need to make arrangements for better medication compliance at home Subjective Patient seen and examined. Feels "completely normal" and desires to go home. Is not sure why she is in hospital, other than her caregiver calling EMS. Wants to be discharged and go home. Wants to leave so that she can care for cat. Denies fever, chills, headache, lightheadedness, visual changes, chest pain, chest pain, shortness of breath, abdominal pain, nausea, vomiting, dysuria or diarrhea. Physical Exam Physical Exam: GENERAL-awake, alert, oriented to place, person, not to time. Not in acute distress. Unreliable historian. HEAD- Atraumatic, Normocephalic NECK- Supple, no JVD LUNGS- Air entry bilaterally equal. No rales, rhonchi, crackles, wheezes heard. HEART- Regular rate and rhythm. No murmurs ABDOMEN- Soft, non tender, non distended, Bowel sounds heard. EXTREMITIES- Good peripheral pulses, no edema NEUROMUSCULAR-awake, alert, oriented to place, person, not to time. Not in acute distress. No focal deficits. PSYCHIATRIC-no hallucinations. Impaired insight and judgment. Results & Data Vital Signs (Past 12 Hours) Vital Signs Temp Pulse Resp BP Pulse Ox 03/09/19 07:17 36.8 C 82 18 151/90 H 98 03/08/19 23:33 37 C 79 20 115/76 95
[2019-03-09] MEDS: PANTOprazole 40 MG TAB PO SCH (08:19)
[2019-03-09] MEDS: BECLOMETHASONE DIP HFA 40 MCG 8.7G INH INH SCH ×2 (08:19→20:07)
[2019-03-09] MEDS: OXYBUTYNIN CHLORIDE XL 5 MG TABCR PO SCH (08:19)
[2019-03-09] MEDS: LITHIUM CARBONATE 300 MG TAB PO SCH (20:09)
[2019-03-10] MEDS: BECLOMETHASONE DIP HFA 40 MCG 8.7G INH INH SCH ×2 (08:23→20:41)
[2019-03-10] MEDS: PANTOprazole 40 MG TAB PO SCH (08:24)
[2019-03-10] MEDS: OXYBUTYNIN CHLORIDE XL 5 MG TABCR PO SCH (08:24)
--- NOTE | 2019-03-10 09:41 | Hospitalist Progress Note ---
Date of Service March 10, 2019 Assessment & Plan (1) Elevated lithium level: Improved from 1.3 to 1 with IV fluids -Psych consulted - [place] dose 300 mg q HS restarted. Has requested Med list from Home health agency as concerned if she is taking it appropriately at home. -Repeat [place] level on 03/13/2017 (prior to HS medication) (2) Hypercalcemia: Improved from 11.2 to 9.3 in setting of IV fluids -Continue to monitor (3) Bipolar 1 disorder: Does not appear manic but has poor insight/judgement concerning health, medications and living arrangement -Restarted [place] at 300 mg q HS -Hold other psychiatric medications (quetiapine and trazodone) till follow up with PCP -Case mgmt consulted -currently living at home with home health but likely to require higher level of care -Appreciate psychiatry inputs - Discussed case with psychiatry. DVT Ppx: SCDs Code status: FULL PCP: Neetu Caruso PA-C Dispo: Need to make arrangements for better medication compliance at home. Awaiting disposition planning. Discussed case with Psychiatry - cleared for discharge with recommendations as above. Subjective Patient seen and examined. Feels "completely normal" and desires to go home. Is not sure why she is in hospital, other than her caregiver calling EMS. Wants to leave so that she can care for cat. Denies fever, chills, headache, lightheadedness, visual changes, chest pain, chest pain, shortness of breath, abdominal pain, nausea, vomiting, dysuria or diarrhea. Physical Exam Physical Exam: GENERAL-awake, alert, oriented to place, person, not to time. Not in acute distress. Unreliable historian. HEAD- Atraumatic, Normocephalic NECK- Supple, no JVD LUNGS- Air entry bilaterally equal. No rales, rhonchi, crackles, wheezes heard. HEART- Regular rate and rhythm. No murmurs ABDOMEN- Soft, non tender, non distended, Bowel sounds heard. EXTREMITIES- Good peripheral pulses, no edema NEUROMUSCULAR-awake, alert, oriented to place, person, not to time. Not in acute distress. No focal deficits. PSYCHIATRIC-no hallucinations. Impaired insight and judgment. Results & Data Vital Signs (Past 12 Hours) Vital Signs Temp Pulse Resp BP Pulse Ox 03/10/19 07:17 36.6 C 88 20 152/86 H 98 03/09/19 23:28 36.4 C L 70 18 145/79 H 95
--- NOTE | 2019-03-10 10:12 | Communication Note ---
Date of Service: March 10, 2019 Pt's case and interval progress were reviewed with psychiatric nurse liaison. Discussed discharge planning with attending physician, Dr. Quiroga, and reviewed the following: We agreed on the importance of patient having assistance at home managing her medications - as she has presented as confused, is not aware of her home regimen, has picked up duplicate prescriptions of varying doses recently, and currently manages her own meds without assistance. Case management is reported to be assisting with ensuring patient has medication management upon returning home. It was reported that case management would also be requested to communicate with [facility] regarding patient's scheduled lithium level on 03/13/19. It was our recommendation that patient remain on lithium 300mg qHS to maintain mood stability. Quetiapine and trazodone have been held during this admission, as it was uncertain if these were accurate current prescriptions. Would suggest continuing to hold these medications until patient is reassessed by her outpatient provider. Psychiatric liaison has attempted to contact PCP for records and to discuss medication adjustments. We have recommended the patient be referred to a psychiatrist for medication management given her recent admissions and multiple episodes of elevated lithium level (though likely related to inappropriate medication management by patient), which was declined repeatedly by patient. She wishes to continue all medical care with her PCP. Confirmed that psychiatric records were faxed to patient's PCP - highlighting the adjustment to patient's lithium dosage. During multiple visits from members of our psychiatric consult service, patient has denied SI/HI, and other psychotic symptoms. She does not meet criteria for inpatient psychiatric admission. We are recommending discharge according to primary medical team upon medical clearance. Appreciate the opportunity to participate in the care of this patient.
[2019-03-10] MEDS ORDERED: QUETIAPINE FUMARATE 25 MG TABLET PO PRN (18:04)
[2019-03-10] MEDS: LITHIUM CARBONATE 300 MG TAB PO SCH (20:41)
[2019-03-11] MEDS: OXYBUTYNIN CHLORIDE XL 5 MG TABCR PO SCH (08:00)
[2019-03-11] MEDS: PANTOprazole 40 MG TAB PO SCH (08:00)
[2019-03-11] MEDS: BECLOMETHASONE DIP HFA 40 MCG 8.7G INH INH SCH ×2 (08:01→20:02)
--- NOTE | 2019-03-11 10:01 | Hospitalist Progress Note ---
Date of Service March 11, 2019 Assessment & Plan (1) Elevated lithium level: Improved from 1.3 to 1 with IV fluids -Psych consulted - [employer] dose 300 mg q HS restarted. Has requested Med list from Home health agency as concerned if she is taking it appropriately at home. -Repeat [employer] level on 03/13/2017 (prior to HS medication) (2) Hypercalcemia: Improved from 11.2 to 9.3 in setting of IV fluids -Continue to monitor (3) Bipolar 1 disorder: Does not appear manic but has poor insight/judgement concerning health, medications and living arrangement -Restarted [employer] at 300 mg q HS -Had held seroquel and Trazodone per psych recommendations. But as she got more agitated yesterday- Seroquel was restarted at home dose- 100 mg q HS (helping her). May give her one more dose for agitation. -Case mgmt consulted -currently living at home with home health but likely to require higher level of care -Appreciate psychiatry inputs - Discussed case with psychiatry. DVT Ppx: SCDs Code status: FULL PCP: Neetu Caruso PA-C Dispo: Need to make arrangements for better medication compliance at home vs placement. protocol manager working on it. Awaiting disposition planning. Discussed case with Psychiatry - cleared for discharge with recommendations as above. Subjective Patient seen and examined. Feels "completely normal" and desires to go home. Is not sure why she is in hospital, other than her caregiver calling EMS. Yesterday evening she got very agitated. On 1:1 observation. Restarted her on Seroquel 100 mg nightly which helped. Wants to leave as she does not understand why she is in the hospital. Denies fever, chills, headache, lightheadedness, visual changes, chest pain, chest pain, shortness of breath, abdominal pain, nausea, vomiting, dysuria or diarrhea. Physical Exam Physical Exam: GENERAL-awake, alert, oriented to place, person, not to time. Not in acute distress. Unreliable historian. HEAD- Atraumatic, Normocephalic NECK- Supple, no JVD LUNGS- Air entry bilaterally equal. No rales, rhonchi, crackles, wheezes heard. HEART- Regular rate and rhythm. No murmurs ABDOMEN- Soft, non tender, non distended, Bowel sounds heard. EXTREMITIES- Good peripheral pulses, no edema NEUROMUSCULAR-awake, alert, oriented to place, person, not to time. Not in acute distress. No focal deficits. PSYCHIATRIC-no hallucinations. Impaired insight and judgment. Results & Data Vital Signs (Past 12 Hours) Vital Signs Temp Pulse Resp BP Pulse Ox 03/11/19 07:57 78 148/96 H 03/11/19 03:34 73 131/85 03/10/19 23:22 158/97 H 03/10/19 23:20 36.6 C 74 20 172/103 H 91
[2019-03-11] MEDS: ACETAMINOPHEN 325 MG TAB PO PRN (16:02)
[2019-03-11] MEDS: LITHIUM CARBONATE 300 MG TAB PO SCH (20:01)
[2019-03-11] MEDS: QUETIAPINE FUMARATE 100 MG TABLET PO SCH (20:01)
[2019-03-12] MEDS: OXYBUTYNIN CHLORIDE XL 5 MG TABCR PO SCH (08:00)
[2019-03-12] MEDS: BECLOMETHASONE DIP HFA 40 MCG 8.7G INH INH SCH ×2 (08:01→20:37)
[2019-03-12] MEDS: PANTOprazole 40 MG TAB PO SCH (08:01)
--- NOTE | 2019-03-12 09:26 | Hospitalist Progress Note ---
Date of Service March 12, 2019 Assessment & Plan (1) Elevated lithium level: Improved from 1.3 to 1 with IV fluids -Psych consulted - [place] dose 300 mg q HS restarted. Has requested Med list from Home health agency as concerned if she is taking it appropriately at home. -Repeat [place] level on 03/13/2017 (prior to HS medication). (2) Hypercalcemia: Improved from 11.2 to 9.3 in setting of IV fluids -Continue to monitor (3) Bipolar 1 disorder: Does not appear manic but has poor insight/judgement concerning health, medications and living arrangement -Restarted [place] at 300 mg q HS -Had held seroquel and Trazodone per psych recommendations. But as she got more agitated - Seroquel was restarted at home dose- 100 mg q HS (helping her) on 03/10/19. May give her one more dose for agitation -Case mgmt consulted -currently living at home with home health but likely to require higher level of care -Appreciate psychiatry inputs - Discussed case with psychiatry. DVT Ppx: SCDs Code status: FULL PCP: Neetu Caruso PA-C Dispo: Need to make arrangements for better medication compliance at home vs placement. fire investigation manager working on it. Awaiting disposition planning. Discussed case with Psychiatry. Updated daughter Su over phone. She will come on Thursday to get POA papers done Subjective Patient seen and examined. Feels "completely normal" and desires to go home. Is not sure why she is in hospital, other than her caregiver calling EMS. Doing well with seroquel. Wants to leave as she does not understand why she is in the hospital. Denies fever, chills, headache, lightheadedness, visual changes, chest pain, chest pain, shortness of breath, abdominal pain, nausea, vomiting, dysuria or diarrhea. Physical Exam Physical Exam: GENERAL-awake, alert, oriented to place, person, not to time. Not in acute distress. Unreliable historian. LUNGS- Air entry bilaterally equal. No rales, rhonchi, crackles, wheezes heard. HEART- Regular rate and rhythm. No murmurs ABDOMEN- Soft, non tender, non distended, Bowel sounds heard. EXTREMITIES- Good peripheral pulses, no edema NEUROMUSCULAR-awake, alert, oriented to place, person, not to time. Not in acute distress. No focal deficits. PSYCHIATRIC-no hallucinations. Impaired insight and judgment. Results & Data Vital Signs (Past 12 Hours) Vital Signs Temp Pulse Resp BP Pulse Ox 03/12/19 07:28 36.4 C L 82 18 118/79 96 03/12/19 00:00 36.7 C 86 18 120/83 97
[2019-03-12] MEDS: QUETIAPINE FUMARATE 100 MG TABLET PO SCH ×2 (19:06→20:38)
[2019-03-12] MEDS: LITHIUM CARBONATE 300 MG TAB PO SCH (20:38)
[2019-03-13 06:10] LABS: Hematocrit (blood only) 37.3 % (37-47); Hemoglobin 11.9 g/dL (12.0-16.0); Mean Corpuscular Hgb Conc 31.9 g/dL (32-36); Mean Corpuscular Volume 106.9 fL (80-100); Mean Platelet Volume 9.8 fL (7.4-10.4); Platelet Count 242 K/uL (130-400); RDW Coefficient of Variation 13.5 % (11.5-14.5); RDW Standard Deviation 52.9 fL (36.4-46.3); Red Blood Count 3.49 M/uL (4.2-5.4); White Blood Count 4.11 K/uL (4.8-10.8)
[2019-03-13 06:44] LABS: BUN Creatinine Ratio 18.3 (10-20); Calcium 10.4 mg/dl (8.5-10.1); Creatinine Clr Calc Pharmacy 43.8 ml/min; Est GFR (African American) 78.3; Est GFR (Non-African American) 67.6; Potassium 4.3 mmol/L (3.5-5.1)
[2019-03-13] MEDS: OXYBUTYNIN CHLORIDE XL 5 MG TABCR PO SCH (08:13)
[2019-03-13] MEDS: PANTOprazole 40 MG TAB PO SCH (08:14)
[2019-03-13] MEDS: BECLOMETHASONE DIP HFA 40 MCG 8.7G INH INH SCH ×2 (08:14→19:56)
--- NOTE | 2019-03-13 12:32 | Hospitalist Progress Note ---
Date of Service March 13, 2019 Assessment & Plan (1) Elevated lithium level: Improved from 1.3 to 0.7 with IV fluids -Psych consulted - [place] dose 300 mg q HS restarted. -Repeat [place] level on 03/13/2017 (prior to HS medication)- 0.7 (2) Hypercalcemia: Improved from 11.2 to 9.3 in setting of IV fluids. Today it is again 10.4. -Will order PTH, Vitamin D levels for AM (3) Bipolar 1 disorder: Does not appear manic but has poor insight/judgement concerning health, medications and living arrangement -Restarted [place] at 300 mg q HS -Had held seroquel and Trazodone per psych recommendations. But as she got more agitated - Seroquel was restarted at home dose- 100 mg q HS (helping her) on 03/10/19. May give her one more dose for agitation. -Case mgmt consulted -currently living at home with home health but likely to require higher level of care -Appreciate psychiatry inputs - Discussed case with psychiatry. DVT Ppx: SCDs Code status: FULL PCP: Neetu Caruso PA-C Dispo: Need to make arrangements for better medication compliance at home vs placement. telecommunications project manager working on it. Awaiting disposition planning. Discussed case with Psychiatry. Updated daughter Su over phone. She will come on Thursday to get POA papers done. Subjective Patient seen and examined. Feels "completely normal" and desires to go home. Is not sure why she is in hospital, other than her caregiver calling EMS. Doing well with seroquel as no more agitative episodes Wants to leave as she does not understand why she is in the hospital. Denies fever, chills, headache, lightheadedness, visual changes, chest pain, chest pain, shortness of breath, abdominal pain, nausea, vomiting, dysuria or diarrhea. Physical Exam Physical Exam: GENERAL-awake, alert, oriented to place, person, not to time. Not in acute distress. Unreliable historian. LUNGS- Air entry bilaterally equal. No rales, rhonchi, crackles, wheezes heard. HEART- Regular rate and rhythm. No murmurs ABDOMEN- Soft, non tender, non distended, Bowel sounds heard. EXTREMITIES- Good peripheral pulses, no edema NEUROMUSCULAR-awake, alert, oriented to place, person, not to time. Not in a cute distress. No focal deficits. PSYCHIATRIC-no hallucinations. Impaired insight and judgment.
[2019-03-13] MEDS: LITHIUM CARBONATE 300 MG TAB PO SCH (19:57)
[2019-03-13] MEDS: QUETIAPINE FUMARATE 100 MG TABLET PO SCH (19:57)
[2019-03-13] MEDS: ACETAMINOPHEN 325 MG TAB PO PRN (21:46)
[2019-03-14] MEDS ORDERED: SIMETHICONE 80 MG CHEW PO ONE (00:30)
[2019-03-14] MEDS: OXYBUTYNIN CHLORIDE XL 5 MG TABCR PO SCH (07:37)
[2019-03-14] MEDS: PANTOprazole 40 MG TAB PO SCH (07:38)
[2019-03-14] MEDS: BECLOMETHASONE DIP HFA 40 MCG 8.7G INH INH SCH ×2 (07:38→20:00)
--- NOTE | 2019-03-14 15:18 | Hospitalist Progress Note ---
Date of Service March 14, 2019 Assessment & Plan (1) Elevated lithium level: Improved from 1.3 to 0.7 with IV fluids -Psych consulted - [place] dose 300 mg q HS restarted. -Repeat [place] level on 03/13/2017 (prior to HS medication)- 0.7 -Per psychiatry, the changes were conveyed to PCP as patient has refused to see psychiatry repeatedly in the past and now. (2) Hypercalcemia: Improved from 11.2 to 9.3 in setting of IV fluids. On 03/13/19 again calcium went up to 10.4 -Vit D 25 hydroxy was ordered - 23, PTH - 40s- normal -Continue to monitor (3) Bipolar 1 disorder: Does not appear manic but has poor insight/judgement concerning health, medications and living arrangement -Restarted [place] at 300 mg q HS -Had held seroquel and Trazodone per psych recommendations. But as she got more agitated - Seroquel was restarted at home dose- 100 mg q HS (helping her) on 03/10/19. May give her one more dose as needed for agitation. -Case mgmt consulted -currently living at home with home health but likely to require higher level of care -Psychiatry signed off. Conveyed to PCP lithium dose changes. Recommends outpatient psychiatric follow up but patient has repeatedly refused. DVT Ppx: SCDs Code status: FULL PCP: Neetu Caruso PA-C Dispo: Need to make arrangements for better medication compliance at home vs placement. bilingual case manager working on it. Awaiting disposition planning. Discussed case with Psychiatry. Updated daughter Su over phone. She will come on Thursday to get POA papers done and assist with disposition planning. Subjective Patient seen and examined. Feels "completely normal" and desires to go home. Is not sure why she is in hospital, other than her caregiver calling EMS. Doing well with seroquel as no more agitative episodes Wants to leave as she does not understand why she is in the hospital. Denies fever, chills, headache, lightheadedness, visual changes, chest pain, chest pain, shortness of breath, abdominal pain, nausea, vomiting, dysuria or diarrhea. Had a BM yesterday, but says she wants something for constipation Physical Exam Physical Exam: GENERAL-awake, alert, oriented to place, person, not to time. Not in acute distress. Unreliable historian. LUNGS- Air entry bilaterally equal. No rales, rhonchi, crackles, wheezes heard. HEART- Regular rate and rhythm. No murmurs ABDOMEN- Soft, non tender, non distended, Bowel sounds heard. EXTREMITIES- Good peripheral pulses, no edema NEUROMUSCULAR-awake, alert, oriented to place, person, not to time. Not in acute distress. No focal deficits. PSYCHIATRIC-no hallucinations. Impaired insight and judgment Results & Data Vital Signs (Past 12 Hours) Vital Signs Temp Pulse Resp BP Pulse Ox 03/14/19 07:22 36.5 C 97 H 18 120/81 97 03/14/19 06:57 36.3 C L 101 H 18 131/88 97
[2019-03-14] MEDS: DOCUSATE SODIUM 100 MG CAP PO PRN (15:40)
[2019-03-14] MEDS: CHOLECALCIFEROL 1,000 UNITS TAB PO SCH (15:43)
[2019-03-14] MEDS: ACETAMINOPHEN 325 MG TAB PO PRN (19:56)
[2019-03-14] MEDS: LITHIUM CARBONATE 300 MG TAB PO SCH (20:00)
[2019-03-14] MEDS: QUETIAPINE FUMARATE 100 MG TABLET PO SCH (20:00)
[2019-03-15 06:52] LABS: Basophils # (auto) 0.03 K/uL (0-0.2); Basophils % (auto) 0.8 %; Eosinophils # (auto) 0.22 K/uL (0-0.5); Eosinophils % (auto) 6.2 %; Hematocrit (blood only) 34.5 % (37-47); Hemoglobin 11.6 g/dL (12.0-16.0); Lymphocytes # (auto) 1.08 K/uL (1.2-3.4); Lymphocytes % (auto) 30.6 %; Mean Corpuscular Hgb Conc 33.6 g/dL (32-36); Mean Corpuscular Volume 105.2 fL (80-100); Mean Platelet Volume 9.6 fL (7.4-10.4); Monocytes # (auto) 0.45 K/uL (0.11-0.59); Monocytes % (auto) 12.7 %; Neutrophils # (auto) 1.75 K/uL (1.4-6.5); Neutrophils % (auto) 49.7 %; Platelet Count 263 K/uL (130-400); RDW Standard Deviation 50.3 fL (36.4-46.3); Red Blood Count 3.28 M/uL (4.2-5.4); White Blood Count 3.53 K/uL (4.8-10.8)
[2019-03-15 07:22] LABS: BUN Creatinine Ratio 25.8 (10-20); Calcium 9.4 mg/dl (8.5-10.1); Creatinine Clr Calc Pharmacy 44.3 ml/min; Est GFR (African American) 79.4; Est GFR (Non-African American) 68.5
[2019-03-15] MEDS: CHOLECALCIFEROL 1,000 UNITS TAB PO SCH (08:46)
[2019-03-15] MEDS: BECLOMETHASONE DIP HFA 40 MCG 8.7G INH INH SCH ×2 (08:46→20:02)
[2019-03-15] MEDS: OXYBUTYNIN CHLORIDE XL 5 MG TABCR PO SCH (08:46)
[2019-03-15] MEDS: PANTOprazole 40 MG TAB PO SCH (08:46)
--- NOTE | 2019-03-15 14:20 | Hospitalist Progress Note ---
Date of Service March 15, 2019 Assessment & Plan (1) Elevated lithium level: Improved from 1.3 to 0.7 with IV fluids -Psych consulted - [place] dose 300 mg q HS restarted. -Repeat [place] level on 03/13/2017 (prior to HS medication)- 0.7 -Per psychiatry, the changes were conveyed to PCP as patient has refused to see psychiatry repeatedly in the past and now. (2) Hypercalcemia: Improved from 11.2 to 9.3 in setting of IV fluids. Fluctuates and currently level at 9.4 -Vit D 25 hydroxy was ordered - 23, PTH - 40s- normal (3) Bipolar 1 disorder: Does not appear manic but has poor insight/judgement concerning health, medications and living arrangement -Restarted [place] at 300 mg q HS -Had held seroquel and Trazodone per psych recommendations. But as she got more agitated - Seroquel was restarted at home dose- 100 mg q HS (helping her) on 03/10/19. May give her one more dose as needed for agitation. -Case mgmt consulted -currently living at home with home health but likely to require higher level of care -Psychiatry signed off. Conveyed to PCP lithium dose changes. Recommends outpatient psychiatric follow up but patient has repeatedly refused. DVT Ppx: SCDs Code status: FULL PCP: Neetu Caruso PA-C Dispo: Need to make arrangements for better medication compliance at home vs placement. Patient refusing facility placement. Has a court appt on 03/17 for legal guardianship. But patient's daughter Su is by bedside from [place] . She will work on getting POA papers and that will overrule court order. electronics commodity manager working on it. - Awaiting disposition planning, medically clear for discharge otherwise. Updated daughter Su by bedside and answered all her questions. Subjective Patient is doing much better. Mentally sounds more clear today. Having a more logical and meaning discussion today about her care at home. Feels confident that she will be able to take care of herself with little assistance from health agency Denies fever, chills, headache, lightheadedness, visual changes, chest pain, chest pain, shortness of breath, abdominal pain, nausea, vomiting, dysuria or diarrhea. Adamant about going home post discharge and not to any facility Daughter Su from [place] by bedside Physical Exam Physical Exam: GENERAL-awake, alert, oriented to place, person, not to time. Not in acute distress. Unreliable historian. LUNGS- Air entry bilaterally equal. No rales, rhonchi, crackles, wheezes heard. HEART- Regular rate and rhythm. No murmurs ABDOMEN- Soft, non tender, non distended, Bowel sounds heard. EXTREMITIES- Good peripheral pulses, no edema NEUROMUSCULAR-awake, alert, oriented to place, person, not to time. Not in acute distress. No focal deficits. PSYCHIATRIC-no hallucinations. Impaired insight and judgment Results & Data Vital Signs (Past 12 Hours) Vital Signs Temp Pulse Resp BP Pulse Ox 03/15/19 08:05 36.5 C 82 18 120/78 96
[2019-03-15] MEDS: ACETAMINOPHEN 325 MG TAB PO PRN (20:02)
[2019-03-15] MEDS: LITHIUM CARBONATE 300 MG TAB PO SCH (20:02)
[2019-03-15] MEDS: QUETIAPINE FUMARATE 100 MG TABLET PO SCH (20:03)
[2019-03-16] MEDS: PANTOprazole 40 MG TAB PO SCH (07:44)
[2019-03-16] MEDS: OXYBUTYNIN CHLORIDE XL 5 MG TABCR PO SCH (07:44)
[2019-03-16] MEDS: BECLOMETHASONE DIP HFA 40 MCG 8.7G INH INH SCH ×2 (07:44→19:54)
[2019-03-16] MEDS: CHOLECALCIFEROL 1,000 UNITS TAB PO SCH (07:45)
--- NOTE | 2019-03-16 17:34 | Hospitalist Progress Note ---
Date of Service March 16, 2019 Assessment & Plan (1) Elevated lithium level: Improved from 1.3 to 0.7 with IV fluids -Psych consulted - [place] dose 300 mg q HS restarted. -Repeat [place] level on 03/13/2017 (prior to HS medication)- 0.7 -Per psychiatry, the changes were conveyed to PCP as patient has refused to see psychiatry repeatedly in the past and now. (2) Hypercalcemia: Indurated dehydration, Improved from 11.2 to 9.3 IV hydration -Vit D 25 hydroxy was ordered - 23, PTH - 40s- normal (3) Bipolar 1 disorder: Does not appear manic but has poor insight/judgement concerning health, medications and living arrangement -Restarted [place] at 300 mg q HS -On- Seroquel - 100 mg q HS -Case mgmt consulted -currently living at home with home health but likely to require higher level of care - DVT Ppx: SCDs Code status: FULL PCP: Neetu Caruso PA-C Dispo: Need to make arrangements for better medication compliance at home vs placement. Patient refusing facility placement. This is patient's third admission with confusion disorientation and dehydration Lives at [facility] residents: Independent living Patient was found wandering on the parking lot, getting into neighbor's apartment Failure to thrive, no food was in her apartment for a week getting admitted in the hospital with dehydration And does not appear to have cognitive skills to maintain basic ADLs: Grocery/cooking, self-care And was discharged home past 2 times with home health visiting nurse,-the need for help in ADLs could not be addressed Social service following for discharge planning Subjective Patient continues to do well, Cheerful, cooperative, Patient's daughter Su Dunn visiting at her bedside When discussing about discharge planning, daughter agrees that her mother will benefit with more support Patient was initially reluctant, later admits that she forgets things, forgets to do groceries, forgets which one her apartment, ends up in the wrong place Hoping that she can return home with added support Physical Exam Constitutional: + thin; no acute distress Eyes: PERRL, conjunctivae normal, anicteric sclerae Neck: trachea midline, no thyromegaly Respiratory: normal respiratory effort, lungs clear to auscultation Cardiovascular: RRR, no murmur, no edema Gastrointestinal (Abdomen): normal bowel sounds, soft, nontender, no hepatosplenomegaly Musculoskeletal: no cyanosis or clubbing, extremities motor strength 5/5 Skin: no rashes, warm and dry Neurologic: PERRL, EOMI, accommodation nl, no face palsy, no dysarthria Psychiatric: Orientation: alert, oriented to person (states "Um, 25...12...oh I don't know.") and cooperative; + not oriented to place ("25, I'm really not sure - why am I so confused") and + not oriented to time (Month = "February"; Year = "February"; Day of week = "Thursday") Apperance: appropriately dressed (in hospital [place]vera and sera goode) and appropriately groomed; + did not appear stated age (appears older than stated age) Eye Contact: good eye contact Motor Behavior: no abnormal motor movements; + unsteady gait or station (rather unsteady, requiring assistance with ambulation) Speech: + pressured speech (mildly) and normal rate/rhythm/volume of speech (mildly overproductive) Affect: euthymic affect and + irritable affect (when discussing home health nurse) Mood: + irritable mood; no depressed mood and no anxious mood Thought Process: + circumstantial thought process; + thought process not linear or logical and + thought process not clear or coherent Thought Content: + preoccupation (with discharge and "cookies") and reality based without delusions Suicidal Thoughts: denies suicidal thoughts, denies suicidal plan and denies suicidal intent Homicidal Thoughts: denies homicidal thoughts Hallucinations: no auditory hallucinations and no visual hallucinations Cognition: attention grossly intact and language grossly intact Estimated Intelligence: consistent with education level Insight: + impaired insight Judgement: + impaired judgement Results & Data Vital Signs (Past 12 Hours) Vital Signs Temp Pulse Pulse Resp BP Pulse Ox 03/16/19 14:53 37.0 C 97 H 18 116/78 97 03/16/19 07:00 36.7 C 81 18 125/84 99
[2019-03-16] MEDS: LITHIUM CARBONATE 300 MG TAB PO SCH (20:28)
[2019-03-16] MEDS: QUETIAPINE FUMARATE 100 MG TABLET PO SCH (20:28)
[2019-03-16] MEDS: ACETAMINOPHEN 325 MG TAB PO PRN (20:31)
[2019-03-17] MEDS: BECLOMETHASONE DIP HFA 40 MCG 8.7G INH INH SCH ×2 (07:30→19:45)
[2019-03-17] MEDS: OXYBUTYNIN CHLORIDE XL 5 MG TABCR PO SCH (07:30)
[2019-03-17] MEDS: PANTOprazole 40 MG TAB PO SCH (07:30)
[2019-03-17] MEDS: CHOLECALCIFEROL 1,000 UNITS TAB PO SCH (07:30)
--- NOTE | 2019-03-17 17:38 | Hospitalist Progress Note ---
Date of Service March 17, 2019 Assessment & Plan (1) Elevated lithium level: Improved from 1.3 to 0.7 -Psych consulted - [place] dose 300 mg q HS restarted. -Repeat [place] level on 03/13/2017 (prior to HS medication)- 0.7 -Per psychiatry, the changes were conveyed to PCP as patient has refused to see psychiatry repeatedly in the past and now. (2) Hypercalcemia: Indurated dehydration, Improved from 11.2 to 9.3 IV hydration -Vit D 25 hydroxy was ordered - 23, PTH - 40s- normal (3) Bipolar 1 disorder: Does not appear manic but has poor insight/judgement concerning health, medications and living arrangement -Restarted [place] at 300 mg q HS -On- Seroquel - 100 mg q HS -Case mgmt consulted -currently living at home with home health but likely to require higher level of care office of aging involved Court order is placed , [facility] is working to to provide pt in weiver programme to get extra help in apartment to assist in ADL's - DVT Ppx: SCDs Code status: FULL PCP: Neetu Caruso PA-C Dispo: plan to return back to independent living with extra help /assistance through [facility] social service following for DC planning Subjective pt appears to be in good mood both of her daughters are present at bedside pt wants to know when she can return back to her apartment aware that office of aging is working to provide more assistance /weiver for hospice home care coordinator to help with daily chores -cooking /cleaning /laundry /grocery pt is agreeable willing to get more help -so she does not have to worry about "tiny little things " admits that she forgets /can not do grocery /cooking or laundry "sometimes I do not notice that I do not have food" but feels that she should be able to warm up food for meals pt can utilize Me[employer] Wheels programme will update social service Physical Exam Constitutional: + thin; no acute distress Eyes: PERRL, conjunctivae normal, anicteric sclerae Neck: trachea midline, no thyromegaly Respiratory: normal respiratory effort, lungs clear to auscultation Cardiovascular: RRR, no murmur, no edema Gastrointestinal (Abdomen): normal bowel sounds, soft, nontender, no hepatosplenomegaly Musculoskeletal: no cyanosis or clubbing, extremities motor strength 5/5 Skin: no rashes, warm and dry Neurologic: PERRL, EOMI, accommodation nl, no face palsy, no dysarthria Psychiatric: Orientation: alert, oriented to person (states "Um, 25...12...oh I don't know.") and cooperative; + not oriented to place ("25, I'm really not sure - why am I so confused") and + not oriented to time (Month = "February"; Year = "February"; Day of week = "Thursday") Apperance: appropriately dressed (in hospital germán and sera goode) and appropriately groomed; + did not appear stated age (appears older than stated age) Eye Contact: good eye contact Motor Behavior: no abnormal motor movements; + unsteady gait or station (rather unsteady, requiring assistance with ambulation) Speech: + pressured speech (mildly) and normal rate/rhythm/volume of speech (mildly overproductive) Affect: euthymic affect and + irritable affect (when discussing home health nurse) Mood: + irritable mood; no depressed mood and no anxious mood Thought Process: + circumstantial thought process; + thought process not linear or logical and + thought process not clear or coherent Thought Content: + preoccupation (with discharge and "cookies") and reality based without delusions Suicidal Thoughts: denies suicidal thoughts, denies suicidal plan and denies suicidal intent Homicidal Thoughts: denies homicidal thoughts Hallucinations: no auditory hallucinations and no visual hallucinations Cognition: attention grossly intact and language grossly intact Estimated Intelligence: consistent with education level Insight: + impaired insight Judgement: + impaired judgement Results & Data Vital Signs (Past 12 Hours) Vital Signs Temp Pulse Resp BP BP Pulse Ox 03/17/19 15:15 36.8 C 85 22 121/79 98 03/17/19 07:43 36.8 C 81 18 106/78 96
[2019-03-17] MEDS: LITHIUM CARBONATE 300 MG TAB PO SCH (19:48)
[2019-03-17] MEDS: QUETIAPINE FUMARATE 100 MG TABLET PO SCH (19:49)
[2019-03-17] MEDS: ACETAMINOPHEN 325 MG TAB PO PRN (19:54)
[2019-03-18] MEDS: OXYBUTYNIN CHLORIDE XL 5 MG TABCR PO SCH (07:56)
[2019-03-18] MEDS: CHOLECALCIFEROL 1,000 UNITS TAB PO SCH (07:56)
[2019-03-18] MEDS: PANTOprazole 40 MG TAB PO SCH (07:56)
[2019-03-18] MEDS: BECLOMETHASONE DIP HFA 40 MCG 8.7G INH INH SCH ×2 (07:56→20:14)
[2019-03-18] MEDS: ACETAMINOPHEN 325 MG TAB PO PRN ×3 (08:49→20:16)
[2019-03-18] MEDS: DOCUSATE SODIUM 100 MG CAP PO PRN (15:48)
[2019-03-18] MEDS: QUETIAPINE FUMARATE 100 MG TABLET PO SCH (20:14)
[2019-03-18] MEDS: LITHIUM CARBONATE 300 MG TAB PO SCH (20:14)
--- NOTE | 2019-03-18 22:40 | Hospitalist Progress Note ---
Date of Service March 18, 2019 Assessment & Plan (1) Elevated lithium level: Improved from 1.3 to 0.7 ->0.5 -Psych consulted - [place] resumed at alower dose 300 mg q HS -Per psychiatry, the changes were conveyed to PCP as patient has refused to see psychiatry repeatedly in the past and now. (2) Hypercalcemia: Indurated dehydration, Improved from 11.2 to 9.3 IV hydration -Vit D 25 hydroxy was ordered - 23, PTH - 40s- normal (3) Bipolar 1 disorder: Does not appear manic but has poor insight/judgement concerning health, medications and living arrangement -Restarted [place] at 300 mg q HS -On- Seroquel - 100 mg q HS -Case mgmt consulted -currently living at home with home health but likely to require higher level of care office of aging involved pt will receive extra assistanc through [employer] service will not be established till thursdaymarch 23 - DVT Ppx: SCDs Code status: FULL PCP: Neetu Caruso PA-C Dispo: plan to return back to independent living with extra help /assistance through [facility] social service following for DC planning Subjective continues to do well in good mood no agitation or confusion noted conversing appropriately happy to know that she will be able to return back to her apartment with additional assistance - Physical Exam Constitutional: + thin; no acute distress Eyes: PERRL, conjunctivae normal, anicteric sclerae Neck: trachea midline, no thyromegaly Respiratory: normal respiratory effort, lungs clear to auscultation Cardiovascular: RRR, no murmur, no edema Gastrointestinal (Abdomen): normal bowel sounds, soft, nontender, no hepatosplenomegaly Musculoskeletal: no cyanosis or clubbing, extremities motor strength 5/5 Skin: no rashes, warm and dry Neurologic: PERRL, EOMI, accommodation nl, no face palsy, no dysarthria Psychiatric: Orientation: alert, oriented to person (states "Um, 25...12...oh I don't know.") and cooperative; + not oriented to place ("25, I'm really not sure - why am I so confused") and + not oriented to time (Month = "February"; Year = "February"; Day of week = "Thursday") Apperance: appropriately dressed (in hospital gown and sera [place]es de ocaris) and appropriately groomed; + did not appear stated age (appears older than stated age) Eye Contact: good eye contact Motor Behavior: no abnormal motor movements; + unsteady gait or station (rather unsteady, requiring assistance with ambulation) Speech: + pressured speech (mildly) and normal rate/rhythm/volume of speech (mildly overproductive) Affect: euthymic affect and + irritable affect (when discussing home health nurse) Mood: + irritable mood; no depressed mood and no anxious mood Thought Process: + circumstantial thought process; + thought process not linear or logical and + thought process not clear or coherent Thought Content: + preoccupation (with discharge and "cookies") and reality based without delusions Suicidal Thoughts: denies suicidal thoughts, denies suicidal plan and denies suicidal intent Homicidal Thoughts: denies homicidal thoughts Hallucinations: no auditory hallucinations and no visual hallucinations Cognition: attention grossly intact and language grossly intact Estimated Intelligence: consistent with education level Insight: + impaired insight Judgement: + impaired judgement
[2019-03-19] MEDS: CHOLECALCIFEROL 1,000 UNITS TAB PO SCH (08:20)
[2019-03-19] MEDS: PANTOprazole 40 MG TAB PO SCH (08:20)
[2019-03-19] MEDS: OXYBUTYNIN CHLORIDE XL 5 MG TABCR PO SCH (08:20)
[2019-03-19] MEDS: BECLOMETHASONE DIP HFA 40 MCG 8.7G INH INH SCH ×2 (08:21→20:48)
[2019-03-19] MEDS: ALBUTEROL HFA 8 GM INHALER INH PRN (15:44)
[2019-03-19] MEDS: ACETAMINOPHEN 325 MG TAB PO PRN (18:06)
--- NOTE | 2019-03-19 18:25 | Hospitalist Progress Note ---
Date of Service March 19, 2019 Assessment & Plan (1) Elevated lithium level: Improved from 1.3 to 0.7 ->0.5 -Psych consulted - [place] resumed at alower dose 300 mg q HS -Per psychiatry, the changes were conveyed to PCP as patient has refused to see psychiatry repeatedly in the past and now. (2) Hypercalcemia: Indurated dehydration, Improved from 11.2 to 9.3 IV hydration -Vit D 25 hydroxy was ordered - 23, PTH - 40s- normal (3) Bipolar 1 disorder: Does not appear manic but has poor insight/judgement concerning health, medications and living arrangement -Restarted [place] at 300 mg q HS -On- Seroquel - 100 mg q HS -Case mgmt consulted -currently living at home with home health but likely to require higher level of care office of aging involved pt will receive extra assistance /Aids through the agency - [employer] service will not be established till thursdaymarch 23 pt wants to discuss with Social service regarding changing the Agency does not want Aids form [employer] to come to her apartment - DVT Ppx: SCDs Code status: FULL PCP: Neetu Caruso PA-C Dispo: plan to return back to independent living with extra help /assistance through [facility] social service following for DC planning Subjective feels fine had a shower no evidence of agitation conversing appropriately aware that she will be able to return back to her Apartment ( [facility] apartment at [facility] ) on Thursday as the waiver programme through office of aging /Aid service via [employer] will not be avaiable till then Pt -does not want [employer] to come to her apartment says -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 ) and thinks they are very rude pt is counselled to accept the service that is provided ( will not be able to do well by her self ) she remains adament does not service through [employer] -agency -willing to accept other agency -also worried that request for changing the service may delay the process pt is asked to relay her concern to field installation technician Case Management on Thursday to explore options of other agency Physical Exam Constitutional: + thin; no acute distress Eyes: PERRL, conjunctivae normal, anicteric sclerae Neck: trachea midline, no thyromegaly Respiratory: normal respiratory effort, lungs clear to auscultation Cardiovascular: RRR, no murmur, no edema Gastrointestinal (Abdomen): normal bowel sounds, soft, nontender, no hepatosplenomegaly Musculoskeletal: no cyanosis or clubbing, extremities motor strength 5/5 Skin: no rashes, warm and dry Neurologic: PERRL, EOMI, accommodation nl, no face palsy, no dysarthria Psychiatric: Orientation: alert and cooperative Apperance: appropriately dressed (in hospital gown and sera caphue) and appropriately groomed; + did not appear stated age (appears older than stated age) Eye Contact: good eye contact Motor Behavior: no abnormal motor movements Affect: euthymic affect Suicidal Thoughts: denies suicidal plan and denies suicidal intent Hallucinations: no auditory hallucinations Estimated Intelligence: consistent with education level Results & Data Vital Signs (Past 12 Hours) Vital Signs Temp Pulse Resp BP Pulse Ox 03/19/19 14:56 36.8 C 76 16 133/91 96 03/19/19 07:30 36.6 C 80 16 137/79 97
[2019-03-19] MEDS: QUETIAPINE FUMARATE 100 MG TABLET PO SCH (20:47)
[2019-03-19] MEDS: LITHIUM CARBONATE 300 MG TAB PO SCH (20:47)
[2019-03-20] MEDS: ACETAMINOPHEN 325 MG TAB PO PRN ×2 (06:39→20:16)
[2019-03-20] MEDS: BECLOMETHASONE DIP HFA 40 MCG 8.7G INH INH SCH ×2 (07:58→20:09)
[2019-03-20] MEDS: PANTOprazole 40 MG TAB PO SCH (07:58)
[2019-03-20] MEDS: CHOLECALCIFEROL 1,000 UNITS TAB PO SCH (07:59)
[2019-03-20] MEDS: OXYBUTYNIN CHLORIDE XL 5 MG TABCR PO SCH (07:59)
--- NOTE | 2019-03-20 15:57 | Hospitalist Progress Note ---
Date of Service March 20, 2019 Assessment & Plan (1) Elevated lithium level: Incidental finding not the cause for her presentation Improved from 1.3 to 0.7 ->0.5 Psych consulted - [place] resumed at alower dose 300 mg q HS Per psychiatry, the changes were conveyed to PCP as patient has refused to see psychiatry repeatedly in the past and now. No acute symptoms (2) Hypercalcemia: Likely secondary to dehydration and poor oral intake Improved from 11.2 to 9.3 IV hydration Vit D 25 hydroxy was ordered - 23, PTH - 40s- normal Advised to increase oral fluid intake (3) Bipolar 1 disorder: Does not appear any acute symptoms but has poor insight/judgement concerning health, medications and living arrangement Restarted [place] at 300 mg q HS Has been on- Seroquel - 100 mg q HS Case mgmt consulted -currently living at home with home health but likely to require higher level of care office of aging involved to provide extra care at home Service will not be established till thursdaymarch 23 Pt wants to discuss with Social service regarding changing the Agency Does not want Aids form [employer] to come to her apartment DVT Ppx: SCDs We will give Lovenox Code status: FULL PCP: Neetu Caruso PA-C Dispo: plan to return back to independent living with extra help /assistance through [facility] social service following for DC planning Subjective 03/20 The patient was seen and examined in medical floor She denies any complaints today She has been waiting to be placed Review of Systems Review of Systems: All systems reviewed and are unremarkable except as noted below Constitutional: Remains stable, no acute distress at rest Physical Exam Physical Exam: Lying in bed comfortably Eyes: PERRL, conjunctivae normal, anicteric sclerae ENMT: external ear and nose normal, oropharynx normal Neck: trachea midline, no thyromegaly Respiratory: normal respiratory effort Auscultation: + diminished lung sounds; no crackles and no wheezes Cardiovascular: RRR, no murmur, no edema Gastrointestinal (Abdomen): Inspection/Auscultation: abdomen normal to inspection Musculoskeletal: No acute arthritis Lymphatic: no cervical or axillary lymphadenopathy Results & Data Vital Signs (Past 12 Hours) Vital Signs Temp Pulse Resp BP Pulse Ox 03/20/19 14:59 36.9 C 84 18 132/85 99 03/20/19 07:35 37.0 C 80 18 122/81 97 Medications Administered Current Inpatient Medications Acetaminophen (Tylenol) 650 mg PO Q4H PRN PRN Reason: Pain or Fever Stop: 04/07/19 02:04 Last Admin: 03/20/19 06:39 Dose: 650 mg Documented by: Albuterol (Ventolin Hfa) 2 puffs INH Q4H PRN PRN Reason: Shortness Of Breath Stop: 04/07/19 02:04 Last Admin: 03/19/19 15:44 Dose: 2 puffs Documented by: Beclomethasone Dipropionate (Qvar 40 Mcg) 1 puffs INH BID [facility] Stop: 04/07/19 08:59 Last Admin: 03/20/19 07:58 Dose: 1 puffs Documented by: Docusate Sodium (Colace) 100 mg PO DAILY PRN PRN Reason: Constipation Stop: 04/13/19 15:11 Last Admin: 03/18/19 15:48 Dose: 100 mg Documented by: [place] Carbonate ([place] Carbonate) 300 mg PO HS [facility] Stop: 04/07/19 20:59 Last Admin: 03/19/19 20:47 Dose: 300 mg Documented by: Nitroglycerin (Nitrostat) 0.4 mg SL UD PRN PRN Reason: Chest Pain Stop: 04/07/19 02:04 Ondansetron HCl (Zofran) 4 mg IV Q6H PRN PRN Reason: Nausea Stop: 04/07/19 02:04 Last Admin: 03/12/19 19:06 Dose: 4 mg Documented by: Oxybutynin Chloride (Ditropan Xl) 10 mg PO DAILY [facility] Stop: 04/07/19 08:59 Last Admin: 03/20/19 07:59 Dose: 10 mg Documented by: Pantoprazole Sodium (Protonix) 40 mg PO DAILY [facility] Stop: 04/07/19 08:59 Last Admin: 03/20/19 07:58 Dose: 40 mg Documented by: Quetiapine Fumarate (Seroquel) 100 mg PO HS [facility] Stop: 04/10/19 20:59 Last Admin: 03/19/19 20:47 Dose: 100 mg Documented by: Ranitidine HCl (Zantac) 150 mg PO BID [facility] Stop: 04/07/19 08:59 Last Admin: 03/20/19 07:58 Dose: 150 mg Documented by: Trazodone HCl (Desyrel) 50 mg PO [facility] Stop: 04/07/19 20:59 Last Admin: 03/08/19 19:35 Dose: 50 mg Documented by: Vitamin D (Vitamin D3) 1,000 units PO [facility] Stop: 04/13/19 15:14 Last Admin: 03/20/19 07:59 Dose: 1,000 units Documented by:
[2019-03-20] MEDS ORDERED: ENOXAPARIN INJ 40 MG/0.4 ML SYR SQ SCH (16:00)
[2019-03-20] MEDS: LITHIUM CARBONATE 300 MG TAB PO SCH (20:09)
[2019-03-20] MEDS: QUETIAPINE FUMARATE 100 MG TABLET PO SCH (20:10)
[2019-03-21] MEDS: BECLOMETHASONE DIP HFA 40 MCG 8.7G INH INH SCH ×2 (07:21→20:48)
[2019-03-21] MEDS: OXYBUTYNIN CHLORIDE XL 5 MG TABCR PO SCH (07:22)
[2019-03-21] MEDS: CHOLECALCIFEROL 1,000 UNITS TAB PO SCH (07:22)
[2019-03-21] MEDS: PANTOprazole 40 MG TAB PO SCH (07:22)
[2019-03-21] MEDS: ACETAMINOPHEN 325 MG TAB PO PRN ×2 (09:18→19:22)
[2019-03-21] MEDS: ALBUTEROL HFA 8 GM INHALER INH PRN (14:51)
[2019-03-21] MEDS: ENOXAPARIN INJ 30 MG/0.3 ML SYR SQ SCH (16:53)
--- NOTE | 2019-03-21 17:10 | Hospitalist Progress Note ---
Date of Service March 21, 2019 Assessment & Plan (1) Elevated lithium level: Incidental finding not the cause for her presentation Improved from 1.3 to 0.7 ->0.5 Psych consulted - [place] resumed at alower dose 300 mg q HS Per psychiatry, the changes were conveyed to PCP as patient has refused to see psychiatry repeatedly in the past and now. No acute symptoms Remains free of symptoms (2) Hypercalcemia: Likely secondary to dehydration and poor oral intake Improved from 11.2 to 9.3 IV hydration Vit D 25 hydroxy was ordered - 23, PTH - 40s- normal Advised to increase oral fluid intake Will check level tomorrow (3) Bipolar 1 disorder: Does not appear any acute symptoms but has poor insight/judgement concerning health, medications and living arrangement Restarted [place] at 300 mg q HS Has been on- Seroquel - 100 mg q HS Case mgmt consulted -currently living at home with home health but likely to require higher level of care office of aging involved to provide extra care at home Service will not be established till thursdaymarch 23 Pt wants to discuss with Social service regarding changing the Agency Does not want Aids form [employer] to come to her apartment Awaiting to be discharged on Thursday as per recommendation from his agency of aging DVT Ppx: SCDs We will give Lovenox Code status: FULL PCP: Neetu Caruso PA-C Dispo: plan to return back to independent living with extra help /assistance through [facility] social service following for DC planning Subjective 03/20 The patient was seen and examined in medical floor She denies any complaints today She has been waiting to be placed 03/21 Patient is seen and examined in the medical floor She complained of some headache but resolved following breakfast Denies any other symptoms Has been ambulating without any problem Review of Systems Review of Systems: All systems reviewed and are unremarkable except as noted below Constitutional: Remains stable, no acute distress at rest Physical Exam Physical Exam: No apparent distress at rest Eyes: PERRL, conjunctivae normal, anicteric sclerae ENMT: external ear and nose normal, oropharynx normal Neck: trachea midline, no thyromegaly Respiratory: normal respiratory effort Auscultation: + diminished lung sounds; no crackles and no wheezes Cardiovascular: RRR, no murmur, no edema Gastrointestinal (Abdomen): Inspection/Auscultation: abdomen normal to inspect ion Neurologic: Alert, awake and oriented times3 . No focal neuro deficit Lymphatic: no cervical or axillary lymphadenopathy Results & Data Vital Signs (Past 12 Hours) Vital Signs Temp Pulse Resp BP Pulse Ox 03/21/19 15:04 36.9 C 84 16 151/78 H 93 03/21/19 07:46 36.8 C 87 16 115/79 94 Medications Administered Current Inpatient Medications Acetaminophen (Tylenol) 650 mg PO Q4H PRN PRN Reason: Pain or Fever Stop: 04/07/19 02:04 Last Admin: 03/21/19 09:18 Dose: 650 mg Documented by: Albuterol (Ventolin Hfa) 2 puffs INH Q4H PRN PRN Reason: Shortness Of Breath Stop: 04/07/19 02:04 Last Admin: 03/21/19 14:51 Dose: 2 puffs Documented by: Beclomethasone Dipropionate (Qvar 40 Mcg) 1 puffs INH BID [facility] Stop: 04/07/19 08:59 Last Admin: 03/21/19 07:21 Dose: 1 puffs Documented by: Docusate Sodium (Colace) 100 mg PO DAILY PRN PRN Reason: Constipation Stop: 04/13/19 15:11 Last Admin: 03/18/19 15:48 Dose: 100 mg Documented by: Enoxaparin Sodium (Lovenox) 30 mg SQ DAILY@1600 [facility] Stop: 04/20/19 15:59 Last Admin: 03/21/19 16:53 Dose: 30 mg Documented by: [place] Carbonate ([place] Carbonate) 300 mg PO HS [facility] Stop: 04/07/19 20:59 Last Admin: 03/20/19 20:09 Dose: 300 mg Documented by: Nitroglycerin (Nitrostat) 0.4 mg SL UD PRN PRN Reason: Chest Pain Stop: 04/07/19 02:04 Ondansetron HCl (Zofran) 4 mg IV Q6H PRN PRN Reason: Nausea Stop: 04/07/19 02:04 Last Admin: 03/12/19 19:06 Dose: 4 mg Documented by: Oxybutynin Chloride (Ditropan Xl) 10 mg PO DAILY [facility] Stop: 04/07/19 08:59 Last Admin: 03/21/19 07:22 Dose: 10 mg Documented by: Pantoprazole Sodium (Protonix) 40 mg PO DAILY [facility] Stop: 04/07/19 08:59 Last Admin: 03/21/19 07:22 Dose: 40 mg Documented by: Quetiapine Fumarate (Seroquel) 100 mg PO [facility] Stop: 04/10/19 20:59 Last Admin: 03/20/19 20:10 Dose: 100 mg Documented by: Ranitidine HCl (Zantac) 150 mg PO BID [facility] Stop: 04/07/19 08:59 Last Admin: 03/21/19 07:22 Dose: 150 mg Documented by: Trazodone HCl (Desyrel) 50 mg PO [facility] Stop: 04/07/19 20:59 Last Admin: 03/08/19 19:35 Dose: 50 mg Documented by: Vitamin D (Vitamin D3) 1,000 units PO [facility] Stop: 04/13/19 15:14 Last Admin: 03/21/19 07:22 Dose: 1,000 units Documented by:
[2019-03-21] MEDS: LITHIUM CARBONATE 300 MG TAB PO SCH (20:48)
[2019-03-21] MEDS: QUETIAPINE FUMARATE 100 MG TABLET PO SCH (20:48)
[2019-03-22 07:38] LABS: Basophils # (auto) 0.04 K/uL (0-0.2); Basophils % (auto) 1.3 %; Eosinophils % (auto) 6.5 %; Hematocrit (blood only) 34.3 % (37-47); Hemoglobin 11.2 g/dL (12.0-16.0); Lymphocytes # (auto) 0.87 K/uL (1.2-3.4); Lymphocytes % (auto) 28.3 %; Mean Corpuscular Hgb Conc 32.7 g/dL (32-36); Mean Corpuscular Volume 105.5 fL (80-100); Mean Platelet Volume 8.8 fL (7.4-10.4); Monocytes # (auto) 0.28 K/uL (0.11-0.59); Monocytes % (auto) 9.1 %; Neutrophils # (auto) 1.68 K/uL (1.4-6.5); Neutrophils % (auto) 54.8 %; Platelet Count 322 K/uL (130-400); RDW Coefficient of Variation 13.2 % (11.5-14.5); RDW Standard Deviation 51.3 fL (36.4-46.3); Red Blood Count 3.25 M/uL (4.2-5.4); White Blood Count 3.07 K/uL (4.8-10.8)
[2019-03-22 07:58] LABS: BUN Creatinine Ratio 17.1 (10-20); Calcium 9.5 mg/dl (8.5-10.1); Creatinine Clr Calc Pharmacy 46.9 ml/min; Est GFR (African American) 85.1; Est GFR (Non-African American) 73.4; Magnesium 2.3 mg/dl (1.8-2.4); Potassium 3.9 mmol/L (3.5-5.1)
[2019-03-22] MEDS: BECLOMETHASONE DIP HFA 40 MCG 8.7G INH INH SCH ×2 (08:38→20:08)
[2019-03-22] MEDS: PANTOprazole 40 MG TAB PO SCH (08:38)
[2019-03-22] MEDS: CHOLECALCIFEROL 1,000 UNITS TAB PO SCH (08:38)
[2019-03-22] MEDS: OXYBUTYNIN CHLORIDE XL 5 MG TABCR PO SCH (08:38)
[2019-03-22] MEDS: ACETAMINOPHEN 325 MG TAB PO PRN (09:28)
[2019-03-22] MEDS: ENOXAPARIN INJ 30 MG/0.3 ML SYR SQ SCH (15:22)
--- NOTE | 2019-03-22 18:07 | Hospitalist Progress Note ---
Date of Service March 22, 2019 Assessment & Plan (1) Elevated lithium level: Incidental finding not the cause for her presentation Improved from 1.3 to 0.7 ->0.5 Psych consulted - Dutton resumed at alower dose 300 mg q HS Per psychiatry, the changes were conveyed to PCP as patient has refused to see psychiatry repeatedly in the past and now. No acute symptoms Remains free of symptoms Continue current dose of lithium (2) Hypercalcemia: Likely secondary to dehydration and poor oral intake Improved from 11.2 to 9.3 IV hydration Vit D 25 hydroxy was ordered - 23, PTH - 40s- normal Advised to increase oral fluid intake Will check level tomorrow-normal at 9.5 (3) Bipolar 1 disorder: Does not appear any acute symptoms but has poor insight/judgement concerning health, medications and living arrangement Restarted Dutton at 300 mg q HS Has been on- Seroquel - 100 mg q HS Case mgmt consulted -currently living at home with home health but likely to require higher level of care office of aging involved to provide extra care at home Service will not be established till thursdaymarch 23 Pt wants to discuss with Social service regarding changing the Agency Does not want Aids form [employer] to come to her apartment Awaiting to be discharged on Thursday as per recommendation from his agency of aging DVT Ppx: SCDs We will give Lovenox Code status: FULL PCP: Neetu Caruso PA-C Dispo: plan to return back to independent living with extra help /assistance through [facility] social service following for DC planning Subjective 03/20 The patient was seen and examined in medical floor She denies any complaints today She has been waiting to be placed 03/21 Patient is seen and examined in the medical floor She complained of some headache but resolved following breakfast Denies any other symptoms Has been ambulating without any problem 03/22 Patient was seen and examined in the medical floor She has been stable for the last few days Likely discharge tomorrow Review of Systems Review of Systems: All systems reviewed and are unremarkable Physical Exam Physical Exam: Lying in bed comfortably ,no apparent distress Constitutional: well developed and well nourished; no acute distress Eyes: PERRL, conjunctivae normal, anicteric sclerae ENMT: external ear and nose normal, oropharynx normal Neck: trachea midline, no thyromegaly Respiratory: normal respiratory effort Auscultation: + diminished lung sounds; no crackles and no wheezes Cardiovascular: RRR, no murmur, no edema Gastrointestinal (Abdomen): Inspection/Auscultation: abdomen normal to inspection and normal bowel sounds Percussion/Palpation: abdomen soft; abdomen nontender Neurologic: PERRL, EOMI, accommodation nl, no face palsy, no dysarthria Psychiatric: A+Ox3, euthymic affect Lymphatic: no cervical or axillary lymphadenopathy Results & Data Vital Signs (Past 12 Hours) Vital Signs Temp Pulse Resp BP BP Pulse Ox 03/22/19 16:03 36.6 C 76 18 146/90 H 99 03/22/19 07:25 37.1 C 78 18 115/75 97 Laboratory Results Short CBC 03/22/19 Range/Units 07:20 WBC 3.07 L (4.8-10.8) K/uL Hgb 11.2 L (12.0-16.0) g/dL Hct 34.3 L (37-47) % Plt Count 322 (130-400) K/uL BMP 03/22/19 07:20 Sodium 144 Potassium 3.9 Chloride 112 H Carbon Dioxide 27 BUN 14 Creatinine 0.84 Glucose 89 Calcium 9.5 Medications Administered Current Inpatient Medications Acetaminophen (Tylenol) 650 mg PO Q4H PRN PRN Reason: Pain or Fever Stop: 04/07/19 02:04 Last Admin: 03/22/19 09:28 Dose: 650 mg Documented by: Albuterol (Ventolin Hfa) 2 puffs INH Q4H PRN PRN Reason: Shortness Of Breath Stop: 04/07/19 02:04 Last Admin: 03/21/19 14:51 Dose: 2 puffs Documented by: Beclomethasone Dipropionate (Qvar 40 Mcg) 1 puffs INH BID [facility] Stop: 04/07/19 08:59 Last Admin: 03/22/19 08:38 Dose: 1 puffs Documented by: Docusate Sodium (Colace) 100 mg PO DAILY PRN PRN Reason: Constipation Stop: 04/13/19 15:11 Last Admin: 03/18/19 15:48 Dose: 100 mg Documented by: Enoxaparin Sodium (Lovenox) 30 mg SQ DAILY@1600 [facility] Stop: 04/20/19 15:59 Last Admin: 03/22/19 15:22 Dose: 30 mg Documented by: Dutton Carbonate (Dutton Carbonate) 300 mg PO [facility] Stop: 04/07/19 20:59 Last Admin: 03/21/19 20:48 Dose: 300 mg Documented by: Nitroglycerin (Nitrostat) 0.4 mg SL UD PRN PRN Reason: Chest Pain Stop: 04/07/19 02:04 Ondansetron HCl (Zofran) 4 mg IV Q6H PRN PRN Reason: Nausea Stop: 04/07/19 02:04 Last Admin: 03/12/19 19:06 Dose: 4 mg Documented by: Oxybutynin Chloride (Ditropan Xl) 10 mg PO DAILY [facility] Stop: 04/07/19 08:59 Last Admin: 03/22/19 08:38 Dose: 10 mg Documented by: Pantoprazole Sodium (Protonix) 40 mg PO DAILY [facility] Stop: 04/07/19 08:59 Last Admin: 03/22/19 08:38 Dose: 40 mg Documented by: Quetiapine Fumarate (Seroquel) 100 mg PO [facility] Stop: 04/10/19 20:59 Last Admin: 03/21/19 20:48 Dose: 100 mg Documented by: Ranitidine HCl (Zantac) 150 mg PO BID [facility] Stop: 04/07/19 08:59 Last Admin: 03/22/19 08:38 Dose: 150 mg Documented by: Trazodone HCl (Desyrel) 50 mg PO [facility] Stop: 04/07/19 20:59 Last Admin: 03/08/19 19:35 Dose: 50 mg Documented by: Vitamin D (Vitamin D3) 1,000 units PO [facility] Stop: 04/13/19 15:14 Last Admin: 03/22/19 08:38 Dose: 1,000 units Documented by:
[2019-03-22] MEDS: QUETIAPINE FUMARATE 100 MG TABLET PO SCH (20:08)
[2019-03-22] MEDS: LITHIUM CARBONATE 300 MG TAB PO SCH (20:08)
[2019-03-23] MEDS: CHOLECALCIFEROL 1,000 UNITS TAB PO SCH (07:34)
[2019-03-23] MEDS: PANTOprazole 40 MG TAB PO SCH (07:35)
[2019-03-23] MEDS: BECLOMETHASONE DIP HFA 40 MCG 8.7G INH INH SCH ×2 (07:35→20:27)
[2019-03-23] MEDS: OXYBUTYNIN CHLORIDE XL 5 MG TABCR PO SCH (07:35)
--- NOTE | 2019-03-23 10:30 | Hospitalist Progress Note ---
Date of Service March 23, 2019 Assessment & Plan (1) Elevated lithium level: Incidental finding not the cause for her presentation Improved from 1.3 to 0.7 ->0.5 Psych consulted - Zebulon resumed at alower dose 300 mg q HS Per psychiatry, the changes were conveyed to PCP as patient has refused to see psychiatry repeatedly in the past and now. No acute symptoms Remains free of symptoms Continue current dose of lithium will check Zebulon level in AM (2) Hypercalcemia: Likely secondary to dehydration and poor oral intake Improved from 11.2 to 9.3 IV hydration Vit D 25 hydroxy was ordered - 23, PTH - 40s- normal Advised to increase oral fluid intake Will check level tomorrow-normal at 9.5 (3) Bipolar 1 disorder: Does not appear any acute symptoms but has poor insight/judgement concerning health, medications and living arrangement Restarted Zebulon at 300 mg q HS Has been on- Seroquel - 100 mg q HS Case mgmt consulted -currently living at home with home health but likely to require higher level of care office of aging involved to provide extra care at home Service will not be established till thursdaymarch 23 Pt wants to discuss with Social service regarding changing the Agency Does not want Aids form [employer] to come to her apartment Awaiting to be discharged on Thursday as per recommendation from his agency of aging DVT Ppx: SCDs We will give Lovenox Code status: FULL PCP: Neetu Caruso PA-C Dispo: plan to return back to independent living with extra help /assistance through [facility] social service following for DC planning Office of aging cannot provide any service before Likely discharge tomorrow Subjective 03/20 The patient was seen and examined in medical floor She denies any complaints today She has been waiting to be placed 03/21 Patient is seen and examined in the medical floor She complained of some headache but resolved following breakfast Denies any other symptoms Has been ambulating without any problem 03/22 Patient was seen and examined in the medical floor She has been stable for the last few days Likely discharge tomorrow 03/23 The patient was seen and examined in medical floor She remains stable for the last few days Office of aging cannot start support until yesterday The patient will be discharged tomorrow Review of Systems Review of Systems: All systems reviewed and are unremarkable Constitutional: Remains stable, no acute distress at rest Physical Exam Physical Exam: Remains stable Constitutional: well developed and well nourished; no acute distress Eyes: PERRL, conjunctivae normal, anicteric sclerae ENMT: external ear and nose normal, oropharynx normal Neck: trachea midline, no thyromegaly Respiratory: normal respiratory effort Auscultation: + diminished lung sounds; no crackles and no wheezes Cardiovascular: RRR, no murmur, no edema Gastrointestinal (Abdomen): Inspection/Auscultation: abdomen normal to inspection and normal bowel sounds Percussion/Palpation: abdomen soft; abdomen nontender Musculoskeletal: No acute arthritis Neurologic: PERRL, EOMI, accommodation nl, no face palsy, no dysarthria Psychiatric: A+Ox3, euthymic affect Lymphatic: no cervical or axillary lymphadenopathy Results & Data Vital Signs (Past 12 Hours) Vital Signs Temp Pulse Resp BP Pulse Ox 03/23/19 07:49 36.7 C 78 18 131/78 78 L 03/22/19 23:50 36.5 C 76 18 108/71 97 Laboratory Results Short CBC 03/07/19 Range/Units 18:27 Troponin I < 0.015 (0-0.045) ng/ml Medications Administered Current Inpatient Medications Acetaminophen (Tylenol) 650 mg PO Q4H PRN PRN Reason: Pain or Fever Stop: 04/07/19 02:04 Last Admin: 03/22/19 09:28 Dose: 650 mg Documented by: Albuterol (Ventolin Hfa) 2 puffs INH Q4H PRN PRN Reason: Shortness Of Breath Stop: 04/07/19 02:04 Last Admin: 03/21/19 14:51 Dose: 2 puffs Documented by: Beclomethasone Dipropionate (Qvar 40 Mcg) 1 puffs INH BID [facility] Stop: 04/07/19 08:59 Last Admin: 03/23/19 07:35 Dose: 1 puffs Documented by: Docusate Sodium (Colace) 100 mg PO DAILY PRN PRN Reason: Constipation Stop: 04/13/19 15:11 Last Admin: 03/18/19 15:48 Dose: 100 mg Documented by: Enoxaparin Sodium (Lovenox) 30 mg SQ DAILY@1600 [facility] Stop: 04/20/19 15:59 Last Admin: 03/22/19 15:22 Dose: 30 mg Documented by: Zebulon Carbonate (Zebulon Carbonate) 300 mg PO [facility] Stop: 04/07/19 20:59 Last Admin: 03/22/19 20:08 Dose: 300 mg Documented by: Nitroglycerin (Nitrostat) 0.4 mg SL UD PRN PRN Reason: Chest Pain Stop: 04/07/19 02:04 Ondansetron HCl (Zofran) 4 mg IV Q6H PRN PRN Reason: Nausea Stop: 04/07/19 02:04 Last Admin: 03/12/19 19:06 Dose: 4 mg Documented by: Oxybutynin Chloride (Ditropan Xl) 10 mg PO DAILY [facility] Stop: 04/07/19 08:59 Last Admin: 03/23/19 07:35 Dose: 10 mg Documented by: Pantoprazole Sodium (Protonix) 40 mg PO DAILY [facility] Stop: 04/07/19 08:59 Last Admin: 03/23/19 07:35 Dose: 40 mg Documented by: Quetiapine Fumarate (Seroquel) 100 mg PO [facility] Stop: 04/10/19 20:59 Last Admin: 03/22/19 20:08 Dose: 100 mg Documented by: Ranitidine HCl (Zantac) 150 mg PO BID [facility] Stop: 04/07/19 08:59 Last Admin: 03/23/19 07:35 Dose: 150 mg Documented by: Trazodone HCl (Desyrel) 50 mg PO [facility] Stop: 04/07/19 20:59 Last Admin: 03/08/19 19:35 Dose: 50 mg Documented by: Vitamin D (Vitamin D3) 1,000 units PO [facility] Stop: 04/13/19 15:14 Last Admin: 03/23/19 07:34 Dose: 1,000 units Documented by:
[2019-03-23] MEDS: ENOXAPARIN INJ 30 MG/0.3 ML SYR SQ SCH (15:13)
[2019-03-23] MEDS: ACETAMINOPHEN 325 MG TAB PO PRN (17:18)
[2019-03-23] MEDS: QUETIAPINE FUMARATE 100 MG TABLET PO SCH (20:27)
[2019-03-23] MEDS: LITHIUM CARBONATE 300 MG TAB PO SCH (20:27)
[2019-03-24] MEDS: ACETAMINOPHEN 325 MG TAB PO PRN (07:09)
[2019-03-24] MEDS: BECLOMETHASONE DIP HFA 40 MCG 8.7G INH INH SCH (08:54)
[2019-03-24] MEDS: OXYBUTYNIN CHLORIDE XL 5 MG TABCR PO SCH (08:55)
[2019-03-24] MEDS: CHOLECALCIFEROL 1,000 UNITS TAB PO SCH (08:55)
[2019-03-24] MEDS: PANTOprazole 40 MG TAB PO SCH (08:55)
--- NOTE | 2019-03-24 12:21 | Discharge Summary ---
Date of Service March 24, 2019 Admission HPI Per Admitting Provider Jessica Marie is a 63-year-old female admitted medically on 03/08/19 upon referral from [facility] for mental health evaluation. Pt's lithium level at near- trough was found to be 1.3 and patient was admitted for confusion and observation for improvement of lithium and calcium level. Psychiatric consultation was requested to evaluate patient for lithium toxicity concerns and make medication recommendations regarding her history of bipolar disorder. Records from previous hospitalization, current ED documentation, and progress notes were reviewed. Pt's case was reviewed with psychiatric nurse liaison (see separate nursing note for these findings). At time of this provider's assessment, the patient is alert and seated in a chair next to her bed. She exclaims "cookies" as this provider enters the room, then proceeds to tell a somewhat disjointed story about her kicking out her home health nurse due to the nurse "telling on me that I was eating cookies, I never really eat healthy." Pt states she was upset with the home health nurse for having to be in the hospital presently. Majority of information provided by patient is not clearly reliable. She states she was told she had "a stroke, that's what they think." Pt states she manages her own medications - "they are all sitting on my dresser. I pop, pop, pop with water - 8:00 every night." Pt states she has not been utilizing a pill organizer and states she does not receive help from home health nursing in medication management. Pt states her quetiapine had been discontinued "oh probably a month ago", but it was listed on her discharge medication list. She is unable to provide reliable history regarding the medications she is currently taking at home. She states she was unable to follow up with her PCP due to "my ex-boyfriend didn't take me. She'll probably be mad at me, I guess I'll just reschedule." Pt denies SI to this provider, stating "I love my cat, I have to take care of it." Pt denies other acute psychiatric concerns at this time. Admission Exam Per Admitting Provider GENERAL: The patient is thin and frail, not in acute distress. VITAL SIGNS: Temperature 36.8, pulse 67, respiratory rate 18, blood pressure 134/76, oxygen 98% on room air. HEENT: No pallor, no icterus. NECK: No JVD, no neck masses, no carotid bruits. CARDIOVASCULAR: S1, S2 heard, regular rate and rhythm, no murmur, no gallop. RESPIRATORY SYSTEM: Normal AP diameter. No accessory muscle use. No wheezing, no crackles. ABDOMEN: Soft, bowel sounds present. Nontender. No distention. CENTRAL NERVOUS SYSTEM: Alert and oriented x2. Nonfocal. EXTREMITIES: No edema, no erythema Principal Diagnosis Toxic vs metabolic encephalopathy -resolved Bipolar 1 disorder Discharge Data Allergies Allergy/AdvReac Type Severity Reaction Status Date / Time No Known Allergies Allergy Unknown Verified 02/18/19 14:23 Consultations 03/07/19 22:09 ED Decision to Admit Stat 03/08/19 02:05 Consult Case Management - Discharge Planning Routine 03/08/19 08:00 Consult Psychiatry Routine Ordered Studies 03/07/19 18:23 CT head/brain wo con Stat Hospital Course (1) Elevated lithium level: (2) Hypercalcemia: (3) Bipolar 1 disorder: 63-year-old female with a history of bipolar disorder who was recently hospitalized with confusion thought to be secondary to hypercalcemia or lithium toxicity. Brain MRI was done at that time which was negative for any strokes and she was discharged on 02/22/2019 on a reduced dose of both lithium and Seroquel. She lives home alone in a personal nursing home with the area of aging agency checking on her. She has some home health assistance and during a recent visit, a home health nurse was concerned about her. Specifically, there was minimal food present in her living situation, and she was demonstrating some pressured speech but was alert and oriented. She was taken to the emergency room. Her lithium levels returned at 1.3 indicating possible toxicity. There was some dysfunction of how she took her medications at home prior to this event. Her calcium levels were also noted to be somewhat elevated which improved to normal range with IV hydration. She was admitted to the hospitalist service. Psychiatry was consulted and recommended resumption of lithium at 300mg nightly with a repeat lithium level ordered. These were normal to low and the lithium level was not changed further. Initially all other psychiatric medications including Seroquel and trazodone were held. These were later started secondary to agitation. As she was requiring a higher level of care with respect to her home health providers the office of aging got involved to provide that care and this was court ordered prior to discharge. At time of discharge she is mentating and ambulating at baseline and is tolerating p.o. She is hemodynamically stable and afebrile and is stable for discharge. Close primary care follow-up was recommended with special attention to lithium management as the patient does not have an outpatient psychiatrist regularly sees. Physical exam at time of discharge was unremarkable. Total Time Total Time Spent Total Time Spent (In Minutes): 60 Total Time Includes: Examination of the Patient, Discharge Planning, Medication Reconciliation and Communication With Other Providers Discharge Plan Discharge Items Patient Disposition: Home - Home Health Services Reason For Visit: MENTAL HEALTH EVALUATION Discharge Diagnosis: toxic vs metabolic encephalopathy-resolved. Condition: Good Discharge Goals: Improve function and Increase independence Activity: Resume your previous activity Non-emergency contact: Primary Care Provider Call non-emergency contact if: you have any medication questions, your symptoms worsen, your pain is not controlled and you have a fever Follow-up/Referrals: Neetu aCruso PA-C [Primary Care Provider] - Diet: Regular Addtl Provider Instructions: Please take all medications as instructed on discharge list. Please follow-up with your primary care provider within one week of discharge. It was a pleasure taking care of you! Please call if you have any questions or problems. You can reach a [facility] hospitalist on duty at [facility] 24 hours a day by calling [phone]. Take care of yourself. Sherron Beasley, DO [facility] Hospitalist Prescriptions: Continued trazodone 50 mg tablet 50 mg PO HS RF: 0 quetiapine 100 mg tablet 100 mg PO HS RF: 0 ranitidine HCl 150 mg tablet 150 mg PO BID RF: 0 albuterol sulfate 90 mcg/actuation HFA aerosol inhaler 2 puff inhalation Q4H PRN (Reason: Shortness Of Breath) RF: 0 oxybutynin chloride 10 mg tablet extended release 24hr 10 mg PO DAILY RF: 0 omeprazole 20 mg capsule,delayed release(DR/EC) 20 mg PO DAILY RF: 0 Qvar RediHaler 40 mcg/actuation HFA aerosol breath activated 1 puff inhalation BID RF: 0 lithium carbonate 300 mg tablet 300 mg PO HS 30 Days Qty: 30 RF: 3 Stand-Alone Forms: My [facility] Discharge Orders: Discharge Order (Routine); Ordered 03/24/19 Ordered By: Sherron Beasley Admission Data Admit Date/Time: 03/09/19 16:05 Attending Provider: Sherron Beasley Admit Provider: Sridhar Gagnon Primary Care Provider: Neetu Caruso Other Providers: Sridhar Gagnon ; Luciana Tanner ; Veronica Quiroga ; Kamila Rubin ; Home,Nursing Agency Service: Medical Other Interventions: Discharge Summary Assessment (RN) Last Done: 03/24/19 10:13
== END 2019-03-24 13:17 | disposition home health service (06) | DRG 917 ==
LOC: 2N 17:21 → ED 17:21 → SUATTDRO 03-08 01:40 → 2N 03-08 01:55 → SUATTDRO 03-09 16:05 → 4E 03-12 19:27

== ENCOUNTER 2020-01-29 11:28 | Inpatient (IN) ==
--- NOTE | 2020-01-29 12:01 | Emergency Department Note ---
Impression & Plan Behavior disturbance, Bipolar 1 disorder, Acute UTI ED Provider Note Provider: Camden Glover MD DATE OF SERVICE: 01/29/2020 CHIEF COMPLAINT: Mental health evaluation HISTORY OF PRESENT ILLNESS: Patient is a 64-year-old female with a history of bipolar 1 presenting via ambulance from her residence. Per nursing report and EMS report, patient was brought here as she lives with her sister who do not feel that he can care for her anymore. Patient was evaluated here 2 days ago and I reviewed this record as well. Evidently the patient has not been very compliant with her psychiatric medications and is not able to be controlled at home. While not hurting anyone, she is very confused and they fear for her safety. Patient on my evaluation here does not know that she is in the hospital. I remind her of this. She is aware of her birthday in the year but did look at her wrist band during this. Patient is holding an apple and makes remarks to this. Making various tangential statements and laughing inappropriately during my exam. Difficult to get significant history from her. She does deny any pain herself. REVIEW OF SYSTEMS: Unable to obtain from the patient due to her mental status/confusion PAST MEDICAL HISTORY: As noted above MEDICATIONS: Reviewed medication list including Seroquel SOCIAL HISTORY: Evidently lives at home with her sister. Former smoker. PHYSICAL EXAM: GENERAL: alert sitting in a chair in the hallway of the psychiatric rooms holding in apple in R hand. Head: normocephalic and atraumatic EYES: No injection, discharge or icterus. NECK: Trachea midline. Supple. ENT: Mucous membranes pink and moist. LUNGS: Airway patent. No retractions. Breath sounds clear HEART: Regular rate and rhythm. No chest wall tenderness ABDOMEN: Soft and non-tender, without guarding or rebound. SKIN: Acyanotic, warm, dry, without rashes EXTREMITIES: Without swelling, tenderness or deformity othre than a few healing blood draw contusion on the UEs NEUROLOGICAL: No focal deficits. No aphasia. No facial droop or slurred speech. Ambulatory. Will follow basic commands at least in the short-term. Psych: Patient is laughing inappropriately on my exam and making many confused and nonsensical statements. She does not know that she is in the hospital and does not know how she got here. Patient denies wanting to harm herself but is very difficult to question and highly tangential. Patient's hypertension was referred to her PCP HOSPITAL COURSE: 1149 Patient was first seen and H&P performed. [address] Tanner of the psychiatric service. [address] [id number] signed. Patient's laboratory studies and imaging reviewed. Differential includes Mood disorder, infection, hypoglycemia, electrolyte abnormalities, cardiac sources, intracerebral event, toxicologic, trauma, neurologic, as well as other pathologies. IMPRESSION/MEDICAL DECISION MAKING: Patient presents seems highly confused and very tangential. Denies any pain and there is no stigmata of significant trauma on exam. Did review recent medical record evaluation here. Seems to have continued and now family do not feel safe with her at home given her confusion. She is inappropriate laughing on my exam. I doubt that she is acutely homicidal or suicidal but I do not feel that this time that she could care for herself in her state. Basic medical clearance and laboratory studies were repeated. Had a recent head CT 2 days ago which I reviewed the report of. Psychiatric case maker assist with evaluation. supply chain project manager to make contact with the patient's family who report that she lives with her sister and they have over the last day or so been giving her medications as she is not able to take them on her own. They state they have locked up and controlled knives and other safety risk at home. They state the [facility] has been involved with her case. They state they fear for her safety and do not feel comfortable with her at home given her very erratic and on rational behavior. They corroborate they have not heard her make any suicidal or homicidal statements. Our case maker on evaluation here states that the patient gave her 4 gold pieces rings that she had on her person during the discussion. Patient's blood work is without significant finding. No evidence of overdose or drug use. Patient's urinalysis does show leukoesterase and white blood cells but also in the presence of a moderate to high amount of epithelial cells. Discussed this case with Dr. Tanner via phone. She is unsure if this truly represents delirium versus more chronic issues but is very some concerns about her medical stability with hypertension. After discussion with her I did have a phone discussion with Dr. Wallace from the [facility] service who are evaluated the patient emergency department 2 days ago more familiar with her case. He appropriately raises some concerns about her safety on the floor and did not feel that she would be suited for medical admission. He stated if there are concerns about her hypertension or other general medical condition they could be consulted. Given this I discussed with the psychiatric case maker for formal referral to 3 S. given the question of a UTI would recommend 500 mg of Keflex twice a day for 5 days. Given my concerns of the patient's ability to care for self a involuntary commitment, 302, was pursued for inpatient psychiatric care. Delegate was contacted and this was upheld. There are some mild agitation the patient was given some oral Haldol. Patient has been non violent here but hyperactive physically and with nonsensical statements. DIAGNOSIS: Bipolar 1, acute UTI, behavioral disturbance DISPOSITION: Accepted to [facility]. Past Med/Surg History Social History Preferred Language: Mongolian Communication Ability: Impaired Whipped Topping Mixer Required: Yes Beliefs That Will Affect Care: None Current Living Situation: Alone Feels Safe at Home: Yes Smoking Status: Former smoker Second Hand Exposure: No ; Hx Alcohol Use: Yes Alcohol type: beer Hx Substance Use: No Allergies Allergies Allergy/AdvReac Type Severity Reaction Status Date / Time No Known Allergies Allergy Unknown Verified 01/29/20 14:36 Home Meds Home Medications Medication Instructions Recorded Confirmed omeprazole 20 mg PO DAILY 02/18/19 01/29/20 ranitidine HCl 150 mg PO BID 02/18/19 01/29/20 trazodone 50 mg PO HS 02/18/19 01/29/20 Zyrtec 10 mg PO DAILY 01/27/20 01/29/20 quetiapine 25 mg PO HS 01/27/20 01/29/20 Results & Data (ED) Vital Signs Vital Signs - 24 hr 01/29/20 11:41 01/29/20 13:45 Temperature 37 C Temperature Source Oral Pulse Rate 98 H Pulse Rate [Right Finger] 95 H Pulse Rhythm Regular Pulse Strength Normal Respiratory Rate 18 20 Respiratory Effort / Characteristics Non-Labored Spontaneous Non-Labored Respiratory Depth Normal Normal Respiratory Pattern Regular Blood Pressure 186/118 H Blood Pressure [Left Arm] 160/89 H Blood Pressure Mean 140 Blood Pressure Mean [Left Arm] 112 Blood Pressure Position Standing Pulse Oximetry 98 97 Oxygen Delivery Method Room Air Room Air Sepsis Recent Fever Within 48 Hours No Sepsis Action Taken by Nursing No Action Required Laboratory Data Result diagrams: 01/29/20 13:28 01/29/20 12:16 Lab Results 01/29/20 01/29/20 01/29/20 Range/Units 12:16 12:16 12:16 WBC Cancelled RBC Cancelled Hgb Cancelled Hct Cancelled MCV Cancelled MCH Cancelled MCHC Cancelled RDW Std Deviation Cancelled RDW Coeff of Nemesio Cancelled Plt Count Cancelled MPV Cancelled Immature Gran % (Auto) Cancelled Neut % (Auto) Cancelled Lymph % (Auto) Cancelled [place]in[place] % (Auto) Cancelled Eos % (Auto) Cancelled Baso % (Auto) Cancelled Immature Gran # (Auto) Cancelled Neut # (Auto) Cancelled Lymph # (Auto) Cancelled [place]in[place] # (Auto) Cancelled Eos # (Auto) Cancelled Baso # (Auto) Cancelled Absolute Nucleated RBC Cancelled Nucleated RBC % (auto) Cancelled Neutrophils % (Manual) Cancelled Band Neutrophils % Cancelled Lymphocytes % (Manual) Cancelled Prolymphocyte % Cancelled Reactive Lymphs % (Man) Cancelled Monocytes % (Manual) Cancelled Eosinophils % (Manual) Cancelled Basophils % (Manual) Cancelled Metamyelocytes % (Man) Cancelled Myelocytes % (Man) Cancelled Promyelocytes % (Man) Cancelled Blast Cells % (Manual) Cancelled Plasma Cell % (Manual) Cancelled Other Cells % Cancelled Nucleated RBC % Cancelled Neutrophils # (Manual) Cancelled Band Neutrophils # Cancelled Total Absolute Neuts Cancelled Lymphocytes # (Manual) Cancelled Prolymphocyte # Cancelled Reactive Lymphs # Cancelled Total Abs Lymphocytes Cancelled Monocytes # (Manual) Cancelled Eosinophils # (Manual) Cancelled Basophils # (Manual) Cancelled Metamyelocytes # (Man) Cancelled Myelocytes # (Manual) Cancelled Promyelocytes # (Man) Cancelled Blast Cells # (Man) Cancelled Plasma Cell # (Manual) Cancelled Other Cells # Cancelled Nucleated RBCs # (Man) Cancelled Hypersegmented Neuts Cancelled Hyposegmented Neuts Cancelled Hypogranular Neuts Cancelled Large Granular Lymphs Cancelled # Lrg Granular Lymphs Cancelled Hairy Cells Cancelled Smudge Cells Cancelled Toxic Granulation Cancelled Toxic Vacuolation Cancelled Dohle Bodies Cancelled Erica Rods Cancelled Platelet Estimate Cancelled Hypogranular Platelets Cancelled Clumped Platelets Cancelled Giant Platelets Cancelled Platelet Satelliting Cancelled RBC Morphology Cancelled Polychromasia Cancelled Hypochromasia Cancelled Poikilocytosis Cancelled Basophilic Stippling Cancelled Anisocytosis Cancelled Microcytosis Cancelled Macrocytosis Cancelled Spherocytes Cancelled Pappenheimer Bodies Cancelled Sickle Cells Cancelled Target Cells Cancelled Tear Drop Cells Cancelled Ovalocytes Cancelled Stomatocytes Cancelled Vásquez-Morrisdale Bodies Cancelled Echinocytes Cancelled Acanthocytes (Spur) Cancelled Rouleaux Cancelled RBC Agglutinates Cancelled Schistocytes Cancelled RBC Morph Comment Cancelled Sezary Cell Cancelled Sodium 135 L (136-145) mmol/L Potassium 3.6 (3.5-5.1) mmol/L Chloride 107 (98-107) mmol/L Carbon Dioxide 23 (21-32) mmol/L Anion Gap 5.0 (3-11) BUN 11 (7-18) mg/dl Creatinine 1.03 (0.6-1.2) mg/dl Est Cr Clr Drug Dosing 38.7 ml/min Est GFR ( Amer) 66.1 Est GFR (Non-Af Amer) 57.0 BUN/Creatinine Ratio 10.7 (10-20) Glucose 79 (70-99) mg/dl Calcium 9.9 (8.5-10.1) mg/dl Total Bilirubin 0.8 (0.2-1) mg/dl AST 19 (15-37) U/L ALT 22 (12-78) U/L Alkaline Phosphatase 81 (45-117) U/L Total Protein 8.4 H (6.4-8.2) gm/dl Albumin 4.6 (3.4-5.0) gm/dl Globulin 3.8 (2.5-4.0) gm/dl Albumin/Globulin Ratio 1.2 (0.9-2) TSH 0.514 (0.300-4.500) uIu/ml Urine Color Urine Appearance (Clear) Urine pH (4.5-7.5) Ur Specific Aragon (1.000-1.030) Urine Protein (Negative) Urine Glucose (UA) (Negative) Urine Ketones (Negative) Urine Blood (Negative) Urine Nitrite (Negative) Urine Bilirubin (Negative) Urine Urobilinogen (Negative) Ur Leukocyte Esterase (Negative) Urine WBC (Auto) (0-5) /hpf Urine RBC (Auto) (0-4) /hpf U Hyaline Cast (Auto) (0-5) /lpf U Epithel Cells (Auto) (0-5) /lpf Urine Bacteria (Auto) (Negative) Salicylates < 1.7 L (2.8-20) mg/dl Urine Opiates Screen (Neg) Ur Methadone, Qual (Neg) Acetaminophen < 2 L (10-30) ug/ml Urine Barbiturates (Neg) Ur Phencyclidine (PCP) (Neg) U Amphetamin/Meth Scrn (Neg) MDMA (Ecstasy) Screen (Neg) U Benzodiazepines Scrn (Neg) Ur Cocaine Metabolite (Neg) U Marijuana (THC) Screen (Neg) Ethyl Alcohol mg/dL (0-3) mg/dl 01/29/20 01/29/20 01/29/20 Range/Units 12:16 13:28 14:15 WBC 3.71 L RBC 3.98 L Hgb 13.3 Hct 40.4 MCV 101.5 H MCH 33.4 MCHC 32.9 RDW Std Deviation 51.6 H RDW Coeff of Nemesio 13.8 Plt Count 302 MPV 9.2 Immature Gran % (Auto) 0.0 Neut % (Auto) 51.0 Lymph % (Auto) 32.6 Seminole % (Auto) 13.2 Eos % (Auto) 1.9 Baso % (Auto) 1.3 Immature Gran # (Auto) 0.00 Neut # (Auto) 1.89 Lymph # (Auto) 1.21 [place]in[place] # (Auto) 0.49 Eos # (Auto) 0.07 Baso # (Auto) 0.05 Absolute Nucleated RBC Nucleated RBC % (auto) Neutrophils % (Manual) Band Neutrophils % Lymphocytes % (Manual) Prolymphocyte % Reactive Lymphs % (Man) Monocytes % (Manual) Eosinophils % (Manual) Basophils % (Manual) Metamyelocytes % (Man) Myelocytes % (Man) Promyelocytes % (Man) Blast Cells % (Manual) Plasma Cell % (Manual) Other Cells % Nucleated RBC % Neutrophils # (Manual) Band Neutrophils # Total Absolute Neuts Lymphocytes # (Manual) Prolymphocyte # Reactive Lymphs # Total Abs Lymphocytes Monocytes # (Manual) Eosinophils # (Manual) Basophils # (Manual) Metamyelocytes # (Man) Myelocytes # (Manual) Promyelocytes # (Man) Blast Cells # (Man) Plasma Cell # (Manual) Other Cells # Nucleated RBCs # (Man) Hypersegmented Neuts Hyposegmented Neuts Hypogranular Neuts Large Granular Lymphs # Lrg Granular Lymphs Hairy Cells Smudge Cells Toxic Granulation Toxic Vacuolation Dohle Bodies Erica Rods Platelet Estimate Hypogranular Platelets Clumped Platelets Giant Platelets Platelet Satelliting RBC Morphology Polychromasia Hypochromasia Poikilocytosis Basophilic Stippling Anisocytosis Microcytosis Macrocytosis Spherocytes Pappenheimer Bodies Sickle Cells Target Cells Tear Drop Cells Ovalocytes Stomatocytes Vásquez-Morrisdale Bodies Echinocytes Acanthocytes (Spur) Rouleaux RBC Agglutinates Schistocytes RBC Morph Comment Sezary Cell Sodium (136-145) mmol/L Potassium (3.5-5.1) mmol/L Chloride (98-107) mmol/L Carbon Dioxide (21-32) mmol/L Anion Gap (3-11) BUN (7-18) mg/dl Creatinine (0.6-1.2) mg/dl Est Cr Clr Drug Dosing ml/min Est GFR ( Amer) Est GFR (Non-Af Amer) BUN/Creatinine Ratio (10-20) Glucose (70-99) mg/dl Calcium (8.5-10.1) mg/dl Total Bilirubin (0.2-1) mg/dl AST (15-37) U/L ALT (12-78) U/L Alkaline Phosphatase (45-117) U/L Total Protein (6.4-8.2) gm/dl Albumin (3.4-5.0) gm/dl Globulin (2.5-4.0) gm/dl Albumin/Globulin Ratio (0.9-2) TSH (0.300-4.500) uIu/ml Urine Color Urine Appearance (Clear) Urine pH (4.5-7.5) Ur Specific Aragon (1.000-1.030) Urine Protein (Negative) Urine Glucose (UA) (Negative) Urine Ketones (Negative) Urine Blood (Negative) Urine Nitrite (Negative) Urine Bilirubin (Negative) Urine Urobilinogen (Negative) Ur Leukocyte Esterase (Negative) Urine WBC (Auto) (0-5) /hpf Urine RBC (Auto) (0-4) /hpf U Hyaline Cast (Auto) (0-5) /lpf U Epithel Cells (Auto) (0-5) /lpf Urine Bacteria (Auto) (Negative) Salicylates (2.8-20) mg/dl Urine Opiates Screen Neg (Neg) Ur Methadone, Qual Neg (Neg) Acetaminophen (10-30) ug/ml Urine Barbiturates Neg (Neg) Ur Phencyclidine (PCP) Neg (Neg) U Amphetamin/Meth Scrn Neg (Neg) MDMA (Ecstasy) Screen Neg (Neg) U Benzodiazepines Scrn Neg (Neg) Ur Cocaine Metabolite Neg (Neg) U Marijuana (THC) Screen Neg (Neg) Ethyl Alcohol mg/dL < 3.0 (0-3) mg/dl 01/29/20 Range/Units 14:15 WBC RBC Hgb Hct MCV MCH MCHC RDW Std Deviation RDW Coeff of Nemesio Plt Count MPV Immature Gran % (Auto) Neut % (Auto) Lymph % (Auto) [place] % (Auto) Eos % (Auto) Baso % (Auto) Immature Gran # (Auto) Neut # (Auto) Lymph # (Auto) [place] # (Auto) Eos # (Auto) Baso # (Auto) Absolute Nucleated RBC Nucleated RBC % (auto) Neutrophils % (Manual) Band Neutrophils % Lymphocytes % (Manual) Prolymphocyte % Reactive Lymphs % (Man) Monocytes % (Manual) Eosinophils % (Manual) Basophils % (Manual) Metamyelocytes % (Man) Myelocytes % (Man) Promyelocytes % (Man) Blast Cells % (Manual) Plasma Cell % (Manual) Other Cells % Nucleated RBC % Neutrophils # (Manual) Band Neutrophils # Total Absolute Neuts Lymphocytes # (Manual) Prolymphocyte # Reactive Lymphs # Total Abs Lymphocytes Monocytes # (Manual) Eosinophils # (Manual) Basophils # (Manual) Metamyelocytes # (Man) Myelocytes # (Manual) Promyelocytes # (Man) Blast Cells # (Man) Plasma Cell # (Manual) Other Cells # Nucleated RBCs # (Man) Hypersegmented Neuts Hyposegmented Neuts Hypogranular Neuts Large Granular Lymphs # Lrg Granular Lymphs Hairy Cells Smudge Cells Toxic Granulation Toxic Vacuolation Dohle Bodies Erica Rods Platelet Estimate Hypogranular Platelets Clumped Platelets Giant Platelets Platelet Satelliting RBC Morphology Polychromasia Hypochromasia Poikilocytosis Basophilic Stippling Anisocytosis Microcytosis Macrocytosis Spherocytes Pappenheimer Bodies Sickle Cells Target Cells Tear Drop Cells Ovalocytes Stomatocytes Vásquez-Morris[place] Bodies Echinocytes Acanthocytes (Spur) Rouleaux RBC Agglutinates Schistocytes RBC Morph Comment Sezary Cell Sodium (136-145) mmol/L Potassium (3.5-5.1) mmol/L Chloride (98-107) mmol/L Carbon Dioxide (21-32) mmol/L Anion Gap (3-11) BUN (7-18) mg/dl Creatinine (0.6-1.2) mg/dl Est Cr Clr Drug Dosing ml/min Est GFR ( Amer) Est GFR (Non-Af Amer) BUN/Creatinine Ratio (10-20) Glucose (70-99) mg/dl Calcium (8.5-10.1) mg/dl Total Bilirubin (0.2-1) mg/dl AST (15-37) U/L ALT (12-78) U/L Alkaline Phosphatase (45-117) U/L Total Protein (6.4-8.2) gm/dl Albumin (3.4-5.0) gm/dl Globulin (2.5-4.0) gm/dl Albumin/Globulin Ratio (0.9-2) TSH (0.300-4.500) uIu/ml Urine Color Yellow Urine Appearance Clear (Clear) Urine pH 5.0 (4.5-7.5) Ur Specific Aragon 1.013 (1.000-1.030) Urine Protein Negative (Negative) Urine Glucose (UA) Negative (Negative) Urine Ketones Trace H (Negative) Urine Blood Negative (Negative) Urine Nitrite Negative (Negative) Urine Bilirubin Negative (Negative) Urine Urobilinogen Negative (Negative) Ur Leukocyte Esterase 3+ H (Negative) Urine WBC (Auto) 10-30 H (0-5) /hpf Urine RBC (Auto) 0-4 (0-4) /hpf U Hyaline Cast (Auto) 1-5 (0-5) /lpf U Epithel Cells (Auto) 20-30 H (0-5) /lpf Urine Bacteria (Auto) Negative (Negative) Salicylates (2.8-20) mg/dl Urine Opiates Screen (Neg) Ur Methadone, Qual (Neg) Acetaminophen (10-30) ug/ml Urine Barbiturates (Neg) Ur Phencyclidine (PCP) (Neg) U Amphetamin/Meth Scrn (Neg) MDMA (Ecstasy) Screen (Neg) U Benzodiazepines Scrn (Neg) Ur Cocaine Metabolite (Neg) U Marijuana (THC) Screen (Neg) Ethyl Alcohol mg/dL (0-3) mg/dl Discharge Plan Visit Data Chief Complaint: Mental Health Evaluation Stated Complaint: mhid ED Provider: Camden Glover Discharge Problem: Behavior disturbance, Bipolar 1 disorder, Acute UTI Patient Disposition: Transfer Behavioral Health Fac Forms Stand Alone Forms: My [facility], Suicide Prevention Resources Prescriptions Prescriptions: No Action trazodone 50 mg tablet 50 mg PO HS RF: 0 ranitidine HCl 150 mg tablet 150 mg PO BID RF: 0 omeprazole 20 mg capsule,delayed release(DR/EC) 20 mg PO DAILY RF: 0 Zyrtec 10 mg PO DAILY RF: 0 quetiapine 25 mg PO HS RF: 0 Referrals Referrals: Neetu Caruso PA-C [Primary Care Provider] -
[2020-01-29 12:56] LABS: Albumin Level 4.6 gm/dl (3.4-5.0); BUN Creatinine Ratio 10.7 (10-20); Calcium 9.9 mg/dl (8.5-10.1); Creatinine Clr Calc Pharmacy 38.7 ml/min; Est GFR (African American) 66.1; Potassium 3.6 mmol/L (3.5-5.1)
[2020-01-29 13:05] LABS: Acetaminophen < 2 ug/ml (10-30); Salicylate < 1.7 mg/dl (2.8-20)
[2020-01-29 13:06] LABS: Albumin Globulin Ratio 1.2 (0.9-2); Bilirubin,Total 0.8 mg/dl (0.2-1); Globulin 3.8 gm/dl (2.5-4.0); Thyroid Stimulating Hormone 0.514 uIu/ml (0.300-4.500); Total Protein 8.4 gm/dl (6.4-8.2)
[2020-01-29 13:38] LABS: Basophils # (auto) 0.05 K/uL (0-0.2); Basophils % (auto) 1.3 %; Eosinophils # (auto) 0.07 K/uL (0-0.5); Eosinophils % (auto) 1.9 %; Hematocrit (blood only) 40.4 % (37-47); Hemoglobin 13.3 g/dL (12.0-16.0); Lymphocytes # (auto) 1.21 K/uL (1.2-3.4); Lymphocytes % (auto) 32.6 %; Mean Corpuscular Hemoglobin 33.4 pg (25-34); Mean Corpuscular Hgb Conc 32.9 g/dL (32-36); Mean Corpuscular Volume 101.5 fL (80-100); Mean Platelet Volume 9.2 fL (7.4-10.4); Monocytes # (auto) 0.49 K/uL (0.11-0.59); Monocytes % (auto) 13.2 %; Neutrophils # (auto) 1.89 K/uL (1.4-6.5); Platelet Count 302 K/uL (130-400); RDW Coefficient of Variation 13.8 % (11.5-14.5); RDW Standard Deviation 51.6 fL (36.4-46.3); Red Blood Count 3.98 M/uL (4.2-5.4); White Blood Count 3.71 K/uL (4.8-10.8)
[2020-01-29 14:27] LABS: Appearance Urine Clear (Clear); Bacteria Urine Automated Negative (Negative); Bilirubin Urine Negative (Negative); Blood Urine Negative (Negative); Color Urine Yellow; Epithelial Cell Urine Auto 20-30 /lpf (0-5); Glucose Urine UA Negative (Negative); Ketones Urine Trace (Negative); Leukocyte Esterase Urine 3+ (Negative); Nitrite Urine Negative (Negative); Protein Urine Negative (Negative); RBC Urine Automated 0-4 /hpf (0-4); Specific Gravity Urine 1.013 (1.000-1.030); Urobilinogen Urine Negative (Negative)
[2020-01-29 14:41] LABS: Amphetamines+Metham, Urine Neg (Neg); Barbiturates, Urine Neg (Neg); Benzodiazepine, Urine Neg (Neg); Cocaine, Urine Neg (Neg); MDMA (Ecstacy), Urine Neg (Neg); Methadone, Urine Neg (Neg); Opiate, Urine Neg (Neg); Phencyclidine, Urine Neg (Neg)
[2020-01-29] MEDS ORDERED: cephALEXin 250 MG CAP PO ONE (16:27)
[2020-01-29] MEDS ORDERED: haloperidoL 1 MG TAB PO ONE (16:57)
[2020-01-29] MEDS ORDERED: ZIPRASIDONE 20 MG/ML SDV IM ONE (17:18)
[2020-01-29] MEDS ORDERED: BISMUTH SUBSALICYLATE PER ML OMNICELL CHARGE PO PRN (17:20)
[2020-01-29] MEDS ORDERED: ACETAMINOPHEN 325 MG TAB PO PRN (17:20)
[2020-01-29] MEDS ORDERED: SODIUM CHLORIDE 0.65% NA SOLN 45 ML (OCEAN) PRN (17:20)
[2020-01-29] MEDS ORDERED: ALUMINUM/MAGNESIUM SUSP 30 ML UDC PO PRN (17:20)
[2020-01-29] MEDS ORDERED: MAGNESIUM HYDROXIDE SUSP 30 ML UDC PO PRN (17:20)
[2020-01-29] MEDS ORDERED: QUETIAPINE FUMARATE 25 MG TABLET PO PRN (17:35)
[2020-01-29] MEDS ORDERED: TRAZODONE HCL 50 MG TAB PO SCH (21:00)
[2020-01-29] MEDS: QUETIAPINE FUMARATE 25 MG TABLET PO SCH (21:04)
--- NOTE | 2020-01-30 07:20 | History & Physical ---
Date of Service January 30, 2020 Impression / Recommendations Impression 64-year-old female with bipolar 1 who presents manic and delirious in the context of being taken off her lithium, multiple medical problems, and family's inability to manage her at home. She was staying with her sister, who is stating she cannot keep her safe, as the patient was leaving the house in the middle of the night and walking around, is confused, disoriented, not taking oral medications, not sleeping or eating, and has been aggressive and agitated. Her lithium was stopped in November for unclear reasons, possibly due to a tremor, although family states she was diagnosed with Parkinson's disease. She has not seen her outpatient psychiatrist in 6 months and has been noncompliant with appointments. The office of aging has been involved for the past year, and she was apparently evicted from her apartment at some point. Inpatient treatment is medically necessary due to the severity of her symptoms and inability to care for herself and risk for harm to both herself and others if discharged at this time. We will file for 303 involuntary commitment hearing and she may require medications over objection. (1) Bipolar 1 disorder: 01/29 -spoke with outpatient psychiatrist, Dr. Thomson, who states she has been on lithium for 30 to 40 years. It was stopped by another clinician, possibly her PCP, due to tremor. Still trying to determine whether or not the patient has actually been diagnosed with Parkinson's. disease, and we will attempt to get her outpatient records from [facility] (PCP and neurologist), although patient has not been able to sign releases. -Continue inpatient treatment, file for 303 involuntary commitment. May require medications over objection. Continue private room due to agitation and disorganized, erratic behavior. -Resume home dose of lithium 300 mg at bedtime, as this medication has stabilized her in the past. Continue quetiapine 50 mg at bedtime and 25 mg as needed, as well as trazodone 50 mg at bedtime. She has been refusing oral medications, and received 2 IM doses of ziprasidone in the past 24 hours. -QTC 413 yesterday. Staff have discussed the need for IM antipsychotic medication for behavioral and symptom control with her daughters who are her POA's, and expressed agreement. -If remains on an atypical, will require fasting labs. -Coordinate with the office of aging, determine if she has any other outpatient supports such as a BCM or therapist, and involve family in treatment and discharge planning. (2) Altered mental status: Likely a combination of michelle and delirium. Appreciate hospitalist consult and recommendations regarding her medical conditions. Avoid deliriogenic medications, attempt to resume a regular sleep/wake cycle. Altered mental status type: unspecified Qualified Code(s): R41.82 - Altered mental status, unspecified (3) Elevated blood pressure reading: Appreciate hospitalist recommendations; amlodipine 5 mg daily started. No history of hypertension, elevated blood pressure readings over the past s everal days may be due to agitation. (4) Possible urinary tract infection: Positive findings on urinalysis, culture pending. Hospitalist started Ceftin 250 mg twice daily x5 days. Risk Factors Assessment Male: No : Yes Health Problems: Yes Mental Health Diagnoses: Yes Previous Attempt: Yes Family History of Suicide: Yes Protective Factors Assessment : No Responsible for Young Children: No Employed: No Stable Relationships: No Supportive Family: No Psychiatric History Identifying Data ERIK ELLISON is a 64-year-old F who currently lives in [place] with family, has a history of bipolar disorder, and was admitted on 01/29/20 17:20 on a 302 involuntary commitment for erratic behavior, agitation, and disorganization, and family's inability to care for her at home. Chief Complaint "[Patient screaming} The trash! The trash!". History of Present Illness The patient has been seen in the ER twice in the past 3 days for altered mental status. On 01/27/2020, she was evaluated and sent home with family. She again presented to the ER yesterday, 01/29/2020, due to altered mental status. She was disoriented, did not know her age, her birthday, time or location. She was expansive and agitated, and was unable to provide historical information. She said she lives with her sister and nephew, but did not know their names. Her Sister Vane and nephew Shimon were contacted for collateral information; they reported the patient has been increasingly confused, agitated, and argumentative. She has been leaving the home at night and they had to barricade the front door to prevent this. They were worried about her safety and felt unable to keep her safe at home. She was not taking her medications correctly, and they found she was missing a weeks worth of trazodone. She has been living with her sister, [id number], and nephew for the past 11 weeks until the office of aging can find her suitable apartment, as she was evicted from her previous apartment. They reported that her lithium was recently discontinued by her PCP due to a diagnosis of Parkinson's (although this is not in her problem list on the EMR). She was hallucinating in the ER, stating there were gold coins on her bed, and chemicals on her hands. 2 of her daughters are her POA's, and they requested inpatient treatment, and coordination with the Office of [facility] ([facility]). Medical admission was initially recommended due to elevated blood pressure and concern for delirium, but the hospitalist service declined to admit her, so she was admitted to the B[facility]. She was agitated in the ER and received ziprasidone 5 mg IM. Admission labs notable for: WBC 3.71, RDW 3.98, MCV 101.5; sodium 135, TSH 0.514; UA with trace ketones, 3+ leukocyte esterase, 10-30 WBCs, and 20-30 epithelial cells; UDS negative. Urine culture is pending. EKG was normal sinus rhythm with QTC 413. Chest x-ray and head CT from 01/27/2020 were normal. She refused her oral medications in the ER, so received 5 mg of ziprasidone IM in the ER. She was admitted on a 302 involuntary commi tment with a petitioning statement from the ER psych transplant case manager that reads: "Patient brought to the ED via EMS for further evaluation of complaints from family of confusion, disorganized thinking, and agitation. Patient's sister Vane reports she has been leaving the home at night, walking in the rain with no destination. Family has since barricaded the front door because they are concerned about her safety. Sister reports patient is not taking her medications or eating as she should. This transplant case manager met with patient and she is not oriented x4, laughing inappropriately, and making bizarre comments. Patient states she is 53, but she is 64, and does not know her birthdate. Patient knows it is 2019, but does not know the date or today is Easter, stating emphatically "Easter is a week and a half away." Patient does not know where she is other than "in several big buildings." Patient offers this petitioner for gold coins and is moving them around on the bed, there are no coins. Patient then throws her arms in the air, holding up 7 fingers for a substantial amount of time, but cannot explain why she is doing this. Patient then reports she has chemicals on her hands, but the chemicals are not hurting her, and throws her arms out in a gesture as if she is discarding the chemicals. Patient knows she is living with her sister, but does not know her name. Patient reports she is taking her medications and eating just fine. It is the family's belief that the patient is unable to care for herself and is at risk of being hurt or injured if she does not receive treatment. Patient has a history of bipolar disorder and his outpatient mental health providers at [facility]." On arrival to the [facility], she was agitated and incoherent, and unable to participate in assessments. She has been refusing food and drink, and refusing all oral medications. She did not sleep overnight, was up talking nonstop, screaming at times, and this morning is extremely disorganized and agitated, pacing around the [facility], throwing items on the floor and at staff whenever they attempt to intervene, yelling and screaming, swearing, and pounding on the nurses station window. She is not able to be verbally redirected. She does not follow instructions to stay 6 feet away, is intrusive and hyperactive, will not sit or lie down, and cannot provide any information, answering all questions with unrelated, nonsensical statements. Spoke with Dr. Thomson who has been seeing her since 04/2019, but has not seen her since 07/2019, as the patient canceled 4 appointments. Her lithium was discontinued by her another physician (unclear whom) due to ?tremor. She had been on it for 30 - 40 yrs, and h/o bipolar since early 20s. Most recent dose was 300mg HS, which she had been stable on. As patient was unable to provide any reliable information, the below information is from her outpatient psychiatrist and past records. Past Psychiatric History Previous Psych History: 40-year + history of bipolar disorder. Seen by the psychiatry consult service 02/2019 at the request of the [facility] when she was admitted medically. She was confused, disorganized, and disoriented, lithium level was 1.0, and recommendations were to continue her home dose of lithium 300 mg at bedtime, but hold her other psychotropics (quetiapine and trazodone). At the time she was living alone at [facility], and increased outpatient supports were recommended, specifically assistance with managing her medications, due to concerns that she was taking them incorrectly. Would also recommended that she follow-up with a psychiatrist instead of her PCP for psychotropic medications. Current Psychiatric Diagnosis: Bipolar 1 Outpatient Services: Psychiatrist Dr. Lucina Thomson at [facility]. manager banking [facility] at [facility]. Previous Psych Admissions: Unknown History of Previous Suicide Attempt: Yes Describe Attempts in the Past: OD in 20s Past Medication Trials: lithium - discontinued within the past month by PCP Per her outpatient records, she may have had previous medication trials, but could not recall what they were. Recently started on trazodone and quetiapine. Allergies Allergy/AdvReac Type Severity Reaction Status Date / Time No Known Allergies Allergy Unknown Verified 01/29/20 14:36 Home Medications Home Medications Medication Instructions Recorded Confirmed Type omeprazole 20 mg PO DAILY 02/18/19 01/29/20 History ranitidine HCl 150 mg PO BID 02/18/19 01/29/20 History trazodone 50 mg PO HS 02/18/19 01/29/20 History Zyrtec 10 mg PO DAILY 01/27/20 01/29/20 History albuterol sulfate 2 puff INHALATION QID PRN 01/30/20 01/30/20 History beclomethasone dipropionate [Qvar 2 inh INHALATION BID 01/30/20 01/30/20 History RediHaler] quetiapine 50 mg PO HS 01/30/20 01/30/20 History Family History Family History of: Suicide Completion (one of her children by suicide (per OP psychiatrist)) Alcohol History Hx of Alcohol Use Over the Past 12 Months: No (Hx of alcohol use) Smoking Use Have You Smoked or Used Tobacco Products in the Last 30 Days: No Smoking Status: Former smoker Substance History Hx of Prescription Med Misuse Over the Past 12 Months: No Hx of Over the Counter Med Misuse Over the Past 12 Months: No Hx of Inhalent Misuse Over the Past 12 Months: No Hx of Organic Substance Use Over the Past 12 Months: No Hx of Illegal Substances/Street Drug Use Over Past 12 Months: No Problems as a Result of Past Substance Use: None Identified May have taken up to a week's worth of trazodone last week, his family noticed at the end of the week that it was missing, unclear what happened to it. Personal History Living Arrangements: Home Living Arrangements Comments: Lives alone (evicted from her apartment) but has been staying with her daughter, son-in-law, and nephew in [place]. They do not feel able to take her back. The Office of Aging has been working with her to find a new apartment. Employment Status: Retired Number Of Children: 10 Beliefs That Will Affect Care: None Patient History Medical History Asthma Bipolar 1 disorder (Acute) CA in situ breast CKD (chronic kidney disease), stage III GERD (gastroesophageal reflux disease) Macrocytosis Osteoporosis Vocal cord bowing Surgical History History of appendectomy Family History Brother Cancer lung cancer Prostate cancer Sister Diabetes Social History Preferred Language: Luxembourger Communication Ability: Impaired [employer] Required: Yes Beliefs That Will Affect Care: None Current Living Situation: Alone Smoking Status: Former smoker Second Hand Exposure: No ; Hx Alcohol Use: Yes Alcohol type: beer Hx Substance Use: No Review of Systems Review of Systems: Unobtainable due to mental health condition Physical Exam Psychiatric: Orientation: alert; + uncooperative Petite female appearing older than her stated age, disoriented, agitated, pacing, throwing items around the [facility]. Wearing paper scrub pants and a T-shirt. At one point pulled her pants off Eye Contact: + poor eye contact Motor Behavior: steady gait and station and + psychomotor agitation Yelling at times, laughing inappropriately, swearing. Affect: + labile affect Inappropriate, changing rapidly from euphoric to agitated. Thought Process: + incoherent thought pr ocess Severely disorganized Nonsensical statements, perseverating on garbage Unable to answer Unable to answer Unable to answer Cognition: + recent memory not intact, + remote memory not intact, + attention not intact and + language not intact Insight: + severely impaired insight Judgement: + severely impaired judgement Vital Signs (Past 24 Hours): Last Vital Signs Temp 36.8 C 01/29/20 19:22 Pulse 95 H 01/29/20 19:22 Resp 16 01/29/20 19:22 BP 162/85 H 01/29/20 19:22 Pulse Ox 97 01/29/20 18:36 Exam Statement: A physical exam was performed in the ER prior to admission to the unit by Dr. Glover. I accept that physical as correct/medical clearance for the inpatient physical exam. Results & Data ([facility]) Laboratory Results Laboratory Results - last 24 hr 01/29/20 01/29/20 01/29/20 12:16 12:16 12:16 WBC Cancelled RBC Cancelled Hgb Cancelled Hct Cancelled MCV Cancelled MCH Cancelled MCHC Cancelled RDW Std Deviation Cancelled RDW Coeff of Nemesio Cancelled Plt Count Cancelled MPV Cancelled Immature Gran % (Auto) Cancelled Neut % (Auto) Cancelled Lymph % (Auto) Cancelled Clay % (Auto) Cancelled Eos % (Auto) Cancelled Baso % (Auto) Cancelled Immature Gran # (Auto) Cancelled Neut # (Auto) Cancelled Lymph # (Auto) Cancelled Clay # (Auto) Cancelled Eos # (Auto) Cancelled Baso # (Auto) Cancelled Absolute Nucleated RBC Cancelled Nucleated RBC % (auto) Cancelled Neutrophils % (Manual) Cancelled Band Neutrophils % Cancelled Lymphocytes % (Manual) Cancelled Prolymphocyte % Cancelled Reactive Lymphs % (Man) Cancelled Monocytes % (Manual) Cancelled Eosinophils % (Manual) Cancelled Basophils % (Manual) Cancelled Metamyelocytes % (Man) Cancelled Myelocytes % (Man) Cancelled Promyelocytes % (Man) Cancelled Blast Cells % (Manual) Cancelled Plasma Cell % (Manual) Cancelled Other Cells % Cancelled Nucleated RBC % Cancelled Neutrophils # (Manual) Cancelled Band Neutrophils # Cancelled Total Absolute Neuts Cancelled Lymphocytes # (Manual) Cancelled Prolymphocyte # Cancelled Reactive Lymphs # Cancelled Total Abs Lymphocytes Cancelled Monocytes # (Manual) Cancelled Eosinophils # (Manual) Cancelled Basophils # (Manual) Cancelled Metamyelocytes # (Man) Cancelled Myelocytes # (Manual) Cancelled Promyelocytes # (Man) Cancelled Blast Cells # (Man) Cancelled Plasma Cell # (Manual) Cancelled Other Cells # Cancelled Nucleated RBCs # (Man) Cancelled Hypersegmented Neuts Cancelled Hyposegmented Neuts Cancelled Hypogranular Neuts Cancelled Large Granular Lymphs Cancelled # Lrg Granular Lymphs Cancelled Hairy Cells Cancelled Smudge Cells Cancelled Toxic Granulation Cancelled Toxic Vacuolation Cancelled Dohle Bodies Cancelled Erica Rods Cancelled Platelet Estimate Cancelled Hypogranular Platelets Cancelled Clumped Platelets Cancelled Giant Platelets Cancelled Platelet Satelliting Cancelled RBC Morphology Cancelled Polychromasia Cancelled Hypochromasia Cancelled Poikilocytosis Cancelled Basophilic Stippling Cancelled Anisocytosis Cancelled Microcytosis Cancelled Macrocytosis Cancelled Spherocytes Cancelled Pappenheimer Bodies Cancelled Sickle Cells Cancelled Target Cells Cancelled Tear Drop Cells Cancelled Ovalocytes Cancelled Stomatocytes Cancelled Vásquez-Hornbrook Bodies Cancelled Echinocytes Cancelled Acanthocytes (Spur) Cancelled Rouleaux Cancelled RBC Agglutinates Cancelled Schistocytes Cancelled RBC Morph Comment Cancelled Sezary Cell Cancelled Sodium 135 L Potassium 3.6 Chloride 107 Carbon Dioxide 23 Anion Gap 5.0 BUN 11 Creatinine 1.03 Est Cr Clr Drug Dosing 38.7 Est GFR ( Amer) 66.1 Est GFR (Non-Af Amer) 57.0 BUN/Creatinine Ratio 10.7 Glucose 79 Calcium 9.9 Total Bilirubin 0.8 AST 19 ALT 22 Alkaline Phosphatase 81 Total Protein 8.4 H Albumin 4.6 Globulin 3.8 Albumin/Globulin Ratio 1.2 TSH 0.514 Urine Color Urine Appearance Urine pH Ur Specific [place] Urine Protein Urine Glucose (UA) Urine Ketones Urine Blood Urine Nitrite Urine Bilirubin Urine Urobilinogen Ur Leukocyte Esterase Urine WBC (Auto) Urine RBC (Auto) U Hyaline Cast (Auto) U Epithel Cells (Auto) Urine Bacteria (Auto) Salicylates < 1.7 L Urine Opiates Screen Ur Methadone, Qual Acetaminophen < 2 L Urine Barbiturates Ur Phencyclidine (PCP) U Amphetamin/Meth Scrn MDMA (Ecstasy) Screen U Benzodiazepines Scrn Ur Cocaine Metabolite U Marijuana (THC) Screen Ethyl Alcohol mg/dL 01/29/20 01/29/20 01/29/20 12:16 13:28 14:15 WBC 3.71 L RBC 3.98 L Hgb 13.3 Hct 40.4 MCV 101.5 H MCH 33.4 MCHC 32.9 RDW Std Deviation 51.6 H RDW Coeff of Nemesio 13.8 Plt Count 302 MPV 9.2 Immature Gran % (Auto) 0.0 Neut % (Auto) 51.0 Lymph % (Auto) 32.6 Clay % (Auto) 13.2 Eos % (Auto) 1.9 Baso % (Auto) 1.3 Immature Gran # (Auto) 0.00 Neut # (Auto) 1.89 Lymph # (Auto) 1.21 Clay # (Auto) 0.49 Eos # (Auto) 0.07 Baso # (Auto) 0.05 Absolute Nucleated RBC Nucleated RBC % (auto) Neutrophils % (Manual) Band Neutrophils % Lymphocytes % (Manual) Prolymphocyte % Reactive Lymphs % (Man) Monocytes % (Manual) Eosinophils % (Manual) Basophils % (Manual) Metamyelocytes % (Man) Myelocytes % (Man) Promyelocytes % (Man) Blast Cells % (Manual) Plasma Cell % (Manual) Other Cells % Nucleated RBC % Neutrophils # (Manual) Band Neutrophils # Total Absolute Neuts Lymphocytes # (Manual) Prolymphocyte # Reactive Lymphs # Total Abs Lymphocytes Monocytes # (Manual) Eosinophils # (Manual) Basophils # (Manual) Metamyelocytes # (Man) Myelocytes # (Manual) Promyelocytes # (Man) Blast Cells # (Man) Plasma Cell # (Manual) Other Cells # Nucleated RBCs # (Man) Hypersegmented Neuts Hyposegmented Neuts Hypogranular Neuts Large Granular Lymphs # Lrg Granular Lymphs Hairy Cells Smudge Cells Toxic Granulation Toxic Vacuolation Dohle Bodies Erica Rods Platelet Estimate Hypogranular Platelets Clumped Platelets Giant Platelets Platelet Satelliting RBC Morphology Polychromasia Hypochromasia Poikilocytosis Basophilic Stippling Anisocytosis Microcytosis Macrocytosis Spherocytes Pappenheimer Bodies Sickle Cells Target Cells Tear Drop Cells Ovalocytes Stomatocytes Vásquez-Hornbrook Bodies Echinocytes Acanthocytes (Spur) Rouleaux RBC Agglutinates Schistocytes RBC Morph Comment Sezary Cell Sodium Potassium Chloride Carbon Dioxide Anion Gap BUN Creatinine Est Cr Clr Drug Dosing Est GFR ( Amer) Est GFR (Non-Af Amer) BUN/Creatinine Ratio Glucose Calcium Total Bilirubin AST ALT Alkaline Phosphatase Total Protein Albumin Globulin Albumin/Globulin Ratio TSH Urine Color Urine Appearance Urine pH Ur Specific [place] Urine Protein Urine Glucose (UA) Urine Ketones Urine Blood Urine Nitrite Urine Bilirubin Urine Urobilinogen Ur Leukocyte Esterase Urine WBC (Auto) Urine RBC (Auto) U Hyaline Cast (Auto) U Epithel Cells (Auto) Urine Bacteria (Auto) Salicylates Urine Opiates Screen Neg Ur Methadone, Qual Neg Acetaminophen Urine Barbiturates Neg Ur Phencyclidine (PCP) Neg U Amphetamin/Meth Scrn Neg MDMA (Ecstasy) Screen Neg U Benzodiazepines Scrn Neg Ur Cocaine Metabolite Neg U Marijuana (THC) Screen Neg Ethyl Alcohol mg/dL < 3.0 01/29/20 14:15 WBC RBC Hgb Hct MCV MCH MCHC RDW Std Deviation RDW Coeff of Nemesio Plt Count MPV Immature Gran % (Auto) Neut % (Auto) Lymph % (Auto) Clay % (Auto) Eos % (Auto) Baso % (Auto) Immature Gran # (Auto) Neut # (Auto) Lymph # (Auto) Clay # (Auto) Eos # (Auto) Baso # (Auto) Absolute Nucleated RBC Nucleated RBC % (auto) Neutrophils % (Manual) Band Neutrophils % Lymphocytes % (Manual) Prolymphocyte % Reactive Lymphs % (Man) Monocytes % (Manual) Eosinophils % (Manual) Basophils % (Manual) Metamyelocytes % (Man) Myelocytes % (Man) Promyelocytes % (Man) Blast Cells % (Manual) Plasma Cell % (Manual) Other Cells % Nucleated RBC % Neutrophils # (Manual) Band Neutrophils # Total Absolute Neuts Lymphocytes # (Manual) Prolymphocyte # Reactive Lymphs # Total Abs Lymphocytes Monocytes # (Manual) Eosinophils # (Manual) Basophils # (Manual) Metamyelocytes # (Man) Myelocytes # (Manual) Promyelocytes # (Man) Blast Cells # (Man) Plasma Cell # (Manual) Other Cells # Nucleated RBCs # (Man) Hypersegmented Neuts Hyposegmented Neuts Hypogranular Neuts Large Granular Lymphs # Lrg Granular Lymphs Hairy Cells Smudge Cells Toxic Granulation Toxic Vacuolation Dohle Bodies Erica Rods Platelet Estimate Hypogranular Platelets Clumped Platelets Giant Platelets Platelet Satelliting RBC Morphology Polychromasia Hypochromasia Poikilocytosis Basophilic Stippling Anisocytosis Microcytosis Macrocytosis Spherocytes Pappenheimer Bodies Sickle Cells Target Cells Tear Drop Cells Ovalocytes Stomatocytes Vásquez-Hornbrook Bodies Echinocytes Acanthocytes (Spur) Rouleaux RBC Agglutinates Schistocytes RBC Morph Comment Sezary Cell Sodium Potassium Chloride Carbon Dioxide Anion Gap BUN Creatinine Est Cr Clr Drug Dosing Est GFR ( Amer) Est GFR (Non-Af Amer) BUN/Creatinine Ratio Glucose Calcium Total Bilirubin AST ALT Alkaline Phosphatase Total Protein Albumin Globulin Albumin/Globulin Ratio TSH Urine Color Yellow Urine Appearance Clear Urine pH 5.0 Ur Specific [place] 1.013 Urine Protein Negative Urine Glucose (UA) Negative Urine Ketones Trace H Urine Blood Negative Urine Nitrite Negative Urine Bilirubin Negative Urine Urobilinogen Negative Ur Leukocyte Esterase 3+ H Urine WBC (Auto) 10-30 H Urine RBC (Auto) 0-4 U Hyaline Cast (Auto) 1-5 U Epithel Cells (Auto) 20-30 H Urine Bacteria (Auto) Negative Salicylates Urine Opiates Screen Ur Methadone, Qual Acetaminophen Urine Barbiturates Ur Phencyclidine (PCP) U Amphetamin/Meth Scrn MDMA (Ecstasy) Screen U Benzodiazepines Scrn Ur Cocaine Metabolite U Marijuana (THC) Screen Ethyl Alcohol mg/dL Current Inpatient Medications Current Inpatient Medications: Current Inpatient Medications Acetaminophen (Tylenol) 650 mg PO Q4H PRN PRN Reason: Headache or Minor Fever Stop: 02/28/20 17:19 Al Hydrox/Mg Hydrox/Simethicone (Maalox) 30 ml PO Q4H PRN PRN Reason: GI Upset Stop: 02/28/20 17:19 Bismuth Subsalicylate (Kaopectate) 15 ml PO PRN PRN PRN Reason: Loose Stool Stop: 02/28/20 17:19 Hydroxyzine HCl (Vistaril) 50 mg PO HSZ PRN PRN Reason: Insomnia Stop: 02/28/20 17:19 Hydroxyzine HCl (Vistaril) 25 mg PO Q4H PRN PRN Reason: Anxiety Stop: 02/28/20 17:19 Magnesium Hydroxide (Milk Of Magnesia) 30 ml PO DAILY PRN PRN Reason: Constipation Stop: 02/28/20 17:19 Quetiapine Fumarate (Seroquel) 50 mg PO HS [facility] Stop: 02/28/20 20:59 Last Admin: 01/29/20 21:04 Dose: Not Given Documented by: Quetiapine Fumarate (Seroquel) 25 mg PO Q4H PRN PRN Reason: psychosis/michelle Stop: 02/28/20 17:44 Sodium Chloride ([place] Nasal) 1 - 2 sprays NA PRN PRN PRN Reason: Nasal Dryness/Congestion Stop: 02/28/20 17:19 Trazodone HCl (Desyrel) 50 mg PO [facility] Stop: 02/28/20 20:59 Last Admin: 01/29/20 21:04 Dose: Not Given Documented by:
[2020-01-30] MEDS ORDERED: ZIPRASIDONE 20 MG/ML SDV IM STA (09:35)
[2020-01-30] MEDS ORDERED: ALBUTEROL 0.083% NEBU SOLN 3 ML VIAL NEB PRN (10:33)
--- NOTE | 2020-01-30 10:35 | Consultation ---
Date of Consultation January 30, 2020 Assessment & Plan (1) Altered mental status: (2) Bipolar 1 disorder: Pt seen in ER 01/27/2020 and 01/29/2020 for altered mental status, agitation. Work up in ER on 01/27/[address] head and negative chest x-ray, lithium level <0.2, and UA at that time was clear. ER visit 01/29/20 with UA with questionable UTI. no significant electrolyte abnormality, urine drug screen negative, negative salicylates and acetaminophen levels Recent outpatient medication adjustments with discontinuation of [place] in 11/2019 Currently admitted to behavioral health unit for delirium symptoms for further evaluation and treatment Plan per psych (3) Possible urinary tract infection: 01/27/2020: UA clear 01/29/2020 UA: 3+ leuk esterase, 10-30 WBC, 20-30 epithelial Pt unable to voice if having any urinary symptoms Urine culture pending Recommend Ceftin 500mg BID x 5 days for now until urine culture returns (4) Elevated blood pressure reading: BP: 168/116, prior reading was 162/85 May be secondary to agitation as BP readings in 03/2019 were normal Plan to start amlodipine 5mg po daily Monitor BP closely (5) Parkinsonism: Prior outpatient concern for gait abnormality. 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 No noted tremor Monitor (6) Asthma: No noted SOB or wheezing on exam Recommend continuing pt's home inhalers (7) GERD (gastroesophageal reflux disease): Recommend continuing PPI and H2 brigid (8) CKD (chronic kidney disease), stage III: Cr: 1.0, GFR: 57. Baseline Cr: 1.1 with baseline GFR in the 50's Avoid nephrotoxic agents when possible DVT Prophylaxis -Pt freely ambulating throughout unit, Would recommend continued ambulation Disposition per primary service Follows with Dr Caba for routine care Pt was seen and care coordinated with Dr Menard. See addendum Thank you for this consultation. We will follow the patient with you during their hospital stay. You can reach a member of the [facility] Hospitalist Team 11/05 via pager @ [phone]. Supervising Physician Co-Signing Physician Notes Attending Addendum: care coordinated with NAVI Rogers please refer to her notes for full details, I agree with her notes patient seen and examined, records reviewed by myself as well on exam, patient seen resting in chair, RN at bedside encouraging to take medications alert, very animated, (+) flight of ideas denies symptoms no urinary complaints VS noted and reviewed alert , not in distress, speaks in sentences with no effort nor accessory muscle use normal rate, regular rhythm, no murmurs clear breath sounds bilaterally non distended, soft, nontender no bipedal edema, erythema, warmth no gross focal neuro deficits Urine culture: group B beta strep ASSESSMENT AND PLAN HYPERTENSION - Amlodipine 5mg po daily monitor BP daily GROUP B STREP UTI - empiric Cefuroxime 500mg BID x 3 days other diagnoses and plan of care as per NAVI Donahue notes Thank you for this consultation. We will follow the patient with you during their hospital stay. You can reach a member of the [facility] Hospitalist Team 11/05 via pager @ [phone]. Pablo Menard MD History of Present Illness Requesting Physician: Dr Tanner Reason for Consultation: Medical management of HTN Attending Physician: Luciana Tanner MD History of Present Illness Pt is 64 y/o F with PMH bipolar, GERD, CKD III, osteoporosis, asthma, malnutrition seen in medical consultation for BP control and management of other medical issues. Patient was admitted to health unit overnight for altered mental status, agitation, unable to be cared for by patient's sister. History obtained from medical record and behavioral health staff. Staff report that patient's daughter had reported that patient has symptoms similar to this in the past when she has been off of her lithium. It is reported that the past 2 days family has been giving patient medications however prior to that patient had control of her medications and is unsure what she was taking or not taking. Staff reports patient did not sleep all night and was up talking and was agitated. Reports that she has not been taking her medications. Patient was seen in ER 01/29/2020 and there was given Haldol and Geodon. UA questionable infection and Keflex was recommended however patient refused to take. Unable to obtain from patient if she has had any urinary symptoms. Patient seen in ER 01/27/2020 for similar symptoms and had negative CT head and negative chest x-ray at that time. She also had a lithium level on that ER visit that was<0.2, and UA at that time was clear. Outpatient records reviewed. Patient follows up with Dr. Thomson, [facility] psychiatry. It is reported that patient Seroquel was resumed in 10/2019 for her insomnia. Patient was on long-term lithium which was discontinued in 12/07/2019. Pt had elevated lithium level of 1.7 on 12/02/2019. Patient with history of lithium toxicity in past. Patient seen by neurology-Dr. 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 Was also seen in 01/2019 for leg weakness and had normal MRI brain at that time and PT was suggested. Patient unable to give any history. patient received Geodon prior to my assessment. Currently pacing in room, is able to be redirected, is not aggressive towards this provider and does allow me to partially examine her. She is repeating the names Arleen and Marquise. When asked a question patient repeats partial words from the sentence back and is unable to answer any quest ions. Medical history, medication list, and FH obtained from pt's outpatient records. Unable to obtain Social history secondary to pt's current cognitive status. Allergies Allergy/AdvReac Type Severity Reaction Status Date / Time No Known Allergies Allergy Unknown Verified 01/29/20 14:36 Home Medications Home Medications Medication Instructions Recorded Confirmed Type omeprazole 20 mg PO DAILY 02/18/19 01/29/20 History ranitidine HCl 150 mg PO BID 02/18/19 01/29/20 History trazodone 50 mg PO HS 02/18/19 01/29/20 History Zyrtec 10 mg PO DAILY 01/27/20 01/29/20 History albuterol sulfate 2 puff INHALATION QID PRN 01/30/20 01/30/20 History beclomethasone dipropionate [Qvar 2 inh INHALATION BID 01/30/20 01/30/20 History RediHaler] quetiapine 50 mg PO HS 01/30/20 01/30/20 History Patient History Medical History Asthma Bipolar 1 disorder (Acute) CA in situ breast CKD (chronic kidney disease), stage III GERD (gastroesophageal reflux disease) Macrocytosis Osteoporosis Vocal cord bowing Surgical History History of appendectomy Family History Brother Cancer lung cancer Prostate cancer Sister Diabetes Social History Preferred Language: Kiswahili Communication Ability: Impaired 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 Required: Yes Beliefs That Will Affect Care: None Current Living Situation: Alone Smoking Status: Former smoker Second Hand Exposure: No ; Hx Alcohol Use: Yes Alcohol type: beer Hx Substance Use: No Review of Systems Review of Systems: Unobtainable due to cognitive status Physical Exam Physical Exam: General: thin, elderly female, no acute distress Head: normocephalic, atraumatic Eyes: conjunctiva non-injected, anicteric ENT: normal inspection external ears, nose, mucous membranes appear moist Neck: supple, trachea midline Lungs: clear, no respiratory distress, no wheezing/rhonchi/rales CV: RRR, no murmur, no pretibial edema Abd: normal BS, soft, no apparent tenderness to palpation Ext: no cyanosis, no apparent calf tenderness Neuro: Alert. Pt repeating names and words and unable to participate in conversation. Restless, pacing throughout room, Walking without noted gait abnormality, freely moves bilateral arms, noted to be lifting legs without difficulty. Skin: limited skin exam secondary to pt's cooperation, abdomen and lower legs and face and neck without noted rashes, skin warm, dry Results & Data ([facility]) Vital Signs (Past 12 Hours) Vital Signs Temp Pulse Resp BP 01/30/20 07:51 36.5 C 95 H 18 168/116 H Laboratory Results Short CBC 01/29/20 01/29/20 Range/Units 12:16 13:28 WBC Cancelled 3.71 L Hgb Cancelled 13.3 Hct Cancelled 40.4 Plt Count Cancelled 302 BMP 01/29/20 12:16 Sodium 135 L Potassium 3.6 Chloride 107 Carbon Dioxide 23 BUN 11 Creatinine 1.03 Glucose 79 Calcium 9.9 Liver Function 01/29/20 Range/Units 12:16 Total Bilirubin 0.8 (0.2-1) mg/dl AST 19 (15-37) U/L ALT 22 (12-78) U/L Alkaline Phosphatase 81 (45-117) U/L Albumin 4.6 (3.4-5.0) gm/dl Urine 01/29/20 Range/Units 14:15 Urine Color Yellow Urine Appearance Clear (Clear) Urine pH 5.0 (4.5-7.5) Ur Specific [place] 1.013 (1.000-1.030) Urine Protein Negative (Negative) Urine Glucose (UA) Negative (Negative) (1) Altered mental status Altered mental status type: unspecified Qualified Code(s): R41.82 - Altered mental status, unspecified
--- NOTE | 2020-01-30 10:56 | Communication Note ---
Date of Service: January 30, 2020 Patient agitated, combative, pacing in the [facility], throwing all of her belongings, throwing items at staff when they attempted to intervene, pounding on the nurses station door, screaming and swearing. Blood pressure and pulse elevated, medical consult obtained. Multiple staff attempted to intervene, patient did not respond to attempts to verbally de-escalate her, extremely disorganized, ranting nonsensically. Throwing items at staff, yelling, and getting very close, refusing to observe 6 feet of separation despite multiple verbal prompts, unable/unwilling to sit down or stop moving. Staff contacted her POAs/daughters who agreed to an injection of ziprasidone, which she also received in the ER. Security present for injection, which required approximately 1 minute manual hold from a [id number]. Patient evaluated approximately 30 minutes after injection, lying in bed resting quietly.
[2020-01-30] MEDS: cefUROXime axetil 250 MG TABLET PO SCH (13:43)
[2020-01-30] MEDS: AMLODIPINE BESYLATE 5 MG TAB PO SCH (13:43)
[2020-01-30] MEDS: FLUTICASONE FUROATE 100MCG 14 PUFFS/INHALER INH SCH (13:44)
[2020-01-30] MEDS: QUETIAPINE FUMARATE 25 MG TABLET PO SCH (18:15)
[2020-01-30] MEDS ORDERED: QUETIAPINE FUMARATE 25 MG TABLET PO STA (19:46)
[2020-01-30] MEDS ORDERED: FAMOTIDINE 20 MG TAB PO SCH (21:00)
[2020-01-30] MEDS ORDERED: LITHIUM CARBONATE 300 MG TAB PO SCH (22:00)
[2020-01-31] MEDS: AMLODIPINE BESYLATE 5 MG TAB PO SCH (07:44)
[2020-01-31] MEDS: FLUTICASONE FUROATE 100MCG 14 PUFFS/INHALER INH SCH (07:44)
[2020-01-31] MEDS: cefUROXime axetil 250 MG TABLET PO SCH (07:45)
[2020-01-31] MEDS ORDERED: NITROGLYCERIN 2% OINTMENT 30GM TUBE EXT STA (08:23)
--- NOTE | 2020-01-31 08:28 | Discharge Summary ---
Date of Service January 31, 2020 History of Present Illness The patient has been seen in the ER twice in the past 3 days for altered mental status. On 01/27/2020, she was evaluated and sent home with family. She again presented to the ER yesterday, 01/29/2020, due to altered mental status. She was disoriented, did not know her age, her birthday, time or location. She was expansive and agitated, and was unable to provide historical information. She said she lives with her sister and nephew, but did not know their names. Her Sister Vane and nephew Shimon were contacted for collateral information; they reported the patient has been increasingly confused, agitated, and argumentative. She has been leaving the home at night and they had to barricade the front door to prevent this. They were worried about her safety and felt unable to keep her safe at home. She was not taking her medications correctly, and they found she was missing a weeks worth of trazodone. She has been living with her sister, [id number], and nephew for the past 11 weeks until the office of aging can find her suitable apartment, as she was evicted from her previous apartment. They reported that her lithium was recently discontinued by her PCP due to a diagnosis of Parkinson's (although this is not in her problem list on the EMR). She was hallucinating in the ER, stating there were gold coins on her bed, and chemicals on her hands. 2 of her daughters are her POA's, and they requested inpatient treatment, and coordination with the Office of Aging ([place]). Medical admission was initially recommended due to elevated blood pressure and concern for delirium, but the hospitalist service declined to admit her, so she was admitted to the [facility]. She was agitated in the ER and received ziprasidone 5 mg IM. Admission labs notable for: WBC 3.71, RDW 3.98, MCV 101.5; sodium 135, TSH 0.514; UA with trace ketones, 3+ leukocyte esterase, 10-30 WBCs, and 20-30 epithelial cells; UDS negative. Urine culture is pending. EKG was normal sinus rhythm with QTC 413. Chest x-ray and head CT from 01/27/2020 were normal. She refused her oral medications in the ER, so received 5 mg of ziprasidone IM in the ER. She was admitted on a 302 involuntary commitment with a petitioning statement from the ER psych director of casework that reads: "Patient brought to the ED via EMS for further evaluation of complaints from family of confusion, disorganized thinking, and agitation. Patient's sister Vane reports she has been leaving the home at night, walking in the rain with no destination. Family has since barricaded the front door because they are concerned about her safety. Sister reports patient is not taking her medications or eating as she should. This director of casework met with patient and she is not oriented x4, laughing inappropriately, and making bizarre comments. Patient states she is 53, but she is 64, and does not know her birthdate. Patient knows it is 2019, but does not know the date or today is Easter, stating emphatically "Easter is a week and a half away." Patient does not know where she is other than "in several big buildings." Patient offers this petitioner for gold coins and is moving them around on the bed, there are no coins. Patient then throws her arms in the air, holding up 7 fingers for a substantial amount of time, but cannot explain why she is doing this. Patient then reports she has chemicals on her hands, but the chemicals are not hurting her, and throws her arms out in a gesture as if she is discarding the chemicals. Patient knows she is living with her sister, but does not know her name. Patient reports she is taking her medications and eating just fine. It is the family's belief that the patient is unable to care for herself and is at risk of being hurt or injured if she does not receive treatment. Patient has a history of bipolar disorder and his outpatient mental health providers at [facility]." On arrival to the [facility], she was agitated and incoherent, and unable to participate in assessments. She has been refusing food and drink, and refusing all oral medications. She did not sleep overnight, was up talking nonstop, screaming at times, and this morning is extremely disorganized and agitated, pacing around the [facility], throwing items on the floor and at staff whenever they attempt to intervene, yelling and screaming, swearing, and pounding on the nurses station window. She is not able to be verbally redirected. She does not follow instructions to stay 6 feet away, is intrusive and hyperactive, will not sit or lie down, and cannot provide any information, answering all questions with unrelated, nonsensical statements. Spoke with Dr. Thomson who has been seeing her since 04/2019, but has not seen her since 07/2019, as the patient canceled 4 appointments. Her lithium was discontinued by her another physician (unclear whom) due to ?tremor. She had been on it for 30 - 40 yrs, and h/o bipolar since early 20s. Most recent dose was 300mg HS, which she had been stable on. As patient was unable to provide any reliable information, the below information is from her outpatient psychiatrist and past records. Physical Exam Psychiatric Orientation: alert and oriented to person; + not oriented to place, + not oriented to time and + uncooperative (uncooperative, combative at times) Apperance: + disheveled and appeared stated age; + inappropriately dressed (frequently disrobing, wearing scrub pants rolled up to her crotch ) Eye Contact: + fair eye contact (frequently distracted) Motor Behavior: + tremor; + abnormal motor movements (unpredictable motor movements) Pt observed to be displaying odd and unpredictable behavior, occasionally kneeling on the floor on all fours, pointing her finger at staff rather abruptly, or raising both arms into the air. Pt frequently distracted by her fingers. Gait in general is stable, though her unpredictable motor movements increase concern for imbalance. Speech: + abnormal rate/rhythm/volume of speech (varying degrees of volume - shouting frequently, but whispering at times) Pt often shouting one word phrases unrelated to present-day situation. Pt often exclaiming "butt" or "Lakeisha" or "so now you see the nuts!" Affect: + labile affect (ranging from tearful to expansive and elated ) Thought Process: + incoherent thought process; + thought process not goal directed and + thought association not intact Insight: + severely impaired insight Judgement: + severely impaired judgement Vital Signs (Past 24 Hours) Last Vital Signs Temp 36.5 C 01/30/20 07:51 Pulse 70 01/31/20 07:41 Resp 18 01/30/20 07:51 BP 195/110 H 01/31/20 07:41 Pulse Ox 97 01/29/20 18:36 Principal Diagnosis - Bipolar 1 disorder - Possible UTI - Altered mental status Psychiatric Data 64-year-old female admitted involuntarily for inpatient psychiatric treatment on 01/29/2020. Pt with reported history of bipolar 1 who presents as manic and delirious in the context of being taken off her lithium, multiple medical problems, and family's inability to manage her at home. She was reportedly staying with her sister, who is stating she cannot keep her safe, as the patient was leaving the house in the middle of the night and walking around. Pt was confused, disoriented, not taking oral medications, not sleeping or eating, and has reportedly been aggressive and agitated. It was reported the patient's lithium was stopped in November due to multiple hospital presentations with elevated lithium levels and concern regarding medication management at home. Complicating patient's clinical picture is report from family that the patient was recently diagnosed with Parkinson's disease. She had not seen her outpatient psychiatrist in 6 months and has been noncompliant with appointments. The office of aging has been involved for the past year, and she was apparently evicted from her apartment at some point. Inpatient treatment was recommended due to the severity of her symptoms and inability to care for herself and risk for harm to both herself and others if discharged at this time. 303 was held and granted on 01/31/2020. Hospitalist consultation was requested due to patient's persistent and significant hypertension and patient's unwillingness to take medications. It was the recommendation of the hospitalist team that the patient be transferred to the medical floor, where she could receive IV medications for her blood pressure. Transfer was facilitated by staff and patient received 10mg of IM ziprasidone prior to transfer. We anticipate a psychiatric consultation to allow for ongoing psychiatric management during her medical admission. Day of Discharge Assessment Patient's case was reviewed and discussed with social work and nursing. Staff report the patient did not sleep at all last evening. She was noncompliant with medications and continued to be disruptive toward staff overnight. During morning report, patient was seen by the hospitalist, who recommended patient be transferred to the medical floor to receive IV medications given limited cooperation with oral medications and a blood pressure of 195/110 this morning. Supervising psychiatrist was updated with recommendations, and patient was seen by this PA-C prior to discharge. Pt was observed several times throughout the morning, demonstrating odd and unpredictable behavior. She would often bang on the doors/windows of the nurses station and intermittently yell out various nonsensical statements. Pt did not respond to redirection and at times would reach for staff to pull on their name badges or grab onto their arms. Given safety concerns related to transporting the patient in this condition, and escalating concern for harm to patient or staff related to these behaviors, an order was written for patient to receive 10mg of ziprasidone IM. Pt has been consistently demonstrating combative behavior, pacing in the [facility], removing her shirt, hitting windows and demonstrating poor boundaries with staff (getting in faces, reaching for name badges, pulling on arms). Pt continued to scream loudly intermittently and did not respond to redirection by staff. As patient's behavior continued to put patient at acute risk of harm to self or staff, and patient would be unable to tolerate a safe transfer to the medical fl oor in her state at the time, decision was made to administer 10mg of ziprasidone IM prior to patient's transfer in order to achieve behavioral control. A physical hold was initiated by staff at 08:55am with subsequent administration of chemical restraint (ziprasidone IM). Hold lasted approximately 30 seconds and was witnessed by this PA-C. Pt received the IM injection in her right buttock, and appeared to tolerate restraint well. Due to concern related to significantly elevated blood pressure, patient received nitroglycerin 2% ointment administered to her back during the hold as well. Pt did not verbalize any complaints during the physical hold and was examined by this provider both during and for ~10 minutes after her restraint. Pt was able to freely move all four extremities and did not verbalize any concern regarding pain. Pt was observed to be rubbing her right buttock intermittently, but did not verbalize pain when asked. Pt was observed in both sitting and standing positions and was pacing intermittently, without significant concern for gait instability. Staff remained with patient until she was transferred to the medical floor via wheelchair (per transporter's reported preference). Advance Directives Advance Directives Information Provided: Yes Advance Directives: Yes Mental Health Advance Directive: No Advance Directives on File: No Living Will: No Power of Physician Specialist: Yes Power of Physician Specialist Name: Arleen Patel Power of Physician Specialist , Advance Directives Reason:: Declines as Mental Health Visit. Risk Factors Assessment Male: No : Yes Health Problems: Yes Mental Health Diagnoses: Yes Previous Attempt: Yes Family History of Suicide: Yes Protective Factors Assessment : No Responsible for Young Children: No Employed: No Stable Relationships: No Supportive Family: No Tobacco Cessation at Discharge Tobacco Cessation Medication Prescribed at Discharge: Not Applicable/Non-Smoker Total Time Total Time Spent: Greater Than 30 Minutes Total Time Includes: Examination of the patient, Discharge Planning, Medication Reconciliation and Communication with other providers Discharge Data Consultations 01/30/20 09:29 Consult Hospitalist Routine Lab Results 01/29/20 01/29/20 01/29/20 12:16 12:16 12:16 WBC Cancelled RBC Cancelled Hgb Cancelled Hct Cancelled MCV Cancelled MCH Cancelled MCHC Cancelled RDW Std Deviation Cancelled RDW Coeff of Nemesio Cancelled Plt Count Cancelled MPV Cancelled Immature Gran % (Auto) Cancelled Neut % (Auto) Cancelled Lymph % (Auto) Cancelled Barnwell % (Auto) Cancelled Eos % (Auto) Cancelled Baso % (Auto) Cancelled Immature Gran # (Auto) Cancelled Neut # (Auto) Cancelled Lymph # (Auto) Cancelled Barnwell # (Auto) Cancelled Eos # (Auto) Cancelled Baso # (Auto) Cancelled Absolute Nucleated RBC Cancelled Nucleated RBC % (auto) Cancelled Neutrophils % (Manual) Cancelled Band Neutrophils % Cancelled Lymphocytes % (Manual) Cancelled Prolymphocyte % Cancelled Reactive Lymphs % (Man) Cancelled Monocytes % (Manual) Cancelled Eosinophils % (Manual) Cancelled Basophils % (Manual) Cancelled Metamyelocytes % (Man) Cancelled Myelocytes % (Man) Cancelled Promyelocytes % (Man) Cancelled Blast Cells % (Manual) Cancelled Plasma Cell % (Manual) Cancelled Other Cells % Cancelled Nucleated RBC % Cancelled Neutrophils # (Manual) Cancelled Band Neutrophils # Cancelled Total Absolute Neuts Cancelled Lymphocytes # (Manual) Cancelled Prolymphocyte # Cancelled Reactive Lymphs # Cancelled Total Abs Lymphocytes Cancelled Monocytes # (Manual) Cancelled Eosinophils # (Manual) Cancelled Basophils # (Manual) Cancelled Metamyelocytes # (Man) Cancelled Myelocytes # (Manual) Cancelled Promyelocytes # (Man) Cancelled Blast Cells # (Man) Cancelled Plasma Cell # (Manual) Cancelled Other Cells # Cancelled Nucleated RBCs # (Man) Cancelled Hypersegmented Neuts Cancelled Hyposegmented Neuts Cancelled Hypogranular Neuts Cancelled Large Granular Lymphs Cancelled # Lrg Granular Lymphs Cancelled Hairy Cells Cancelled Smudge Cells Cancelled Toxic Granulation Cancelled Toxic Vacuolation Cancelled Dohle Bodies Cancelled Erica Rods Cancelled Platelet Estimate Cancelled Hypogranular Platelets Cancelled Clumped Platelets Cancelled Giant Platelets Cancelled Platelet Satelliting Cancelled RBC Morphology Cancelled Polychromasia Cancelled Hypochromasia Cancelled Poikilocytosis Cancelled Basophilic Stippling Cancelled Anisocytosis Cancelled Microcytosis Cancelled Macrocytosis Cancelled Spherocytes Cancelled Pappenheimer Bodies Cancelled Sickle Cells Cancelled Target Cells Cancelled Tear Drop Cells Cancelled Ovalocytes Cancelled Stomatocytes Cancelled Vásquez-Munford Bodies Cancelled Echinocytes Cancelled Acanthocytes (Spur) Cancelled Rouleaux Cancelled RBC Agglutinates Cancelled Schistocytes Cancelled RBC Morph Comment Cancelled Sezary Cell Cancelled Sodium 135 L Potassium 3.6 Chloride 107 Carbon Dioxide 23 Anion Gap 5.0 BUN 11 Creatinine 1.03 Est Cr Clr Drug Dosing 38.7 Est GFR ( Amer) 66.1 Est GFR (Non-Af Amer) 57.0 BUN/Creatinine Ratio 10.7 Glucose 79 Calcium 9.9 Total Bilirubin 0.8 AST 19 ALT 22 Alkaline Phosphatase 81 Total Protein 8.4 H Albumin 4.6 Globulin 3.8 Albumin/Globulin Ratio 1.2 TSH 0.514 Urine Color Urine Appearance Urine pH Ur Specific [place] Urine Protein Urine Glucose (UA) Urine Ketones Urine Blood Urine Nitrite Urine Bilirubin Urine Urobilinogen Ur Leukocyte Esterase Urine WBC (Auto) Urine RBC (Auto) U Hyaline Cast (Auto) U Epithel Cells (Auto) Urine Bacteria (Auto) Salicylates < 1.7 L Urine Opiates Screen Ur Methadone, Qual Acetaminophen < 2 L Urine Barbiturates Ur Phencyclidine (PCP) U Amphetamin/Meth Scrn MDMA (Ecstasy) Screen U Benzodiazepines Scrn Ur Cocaine Metabolite U Marijuana (THC) Screen Ethyl Alcohol mg/dL 01/29/20 01/29/20 01/29/20 12:16 13:28 14:15 WBC 3.71 L RBC 3.98 L Hgb 13.3 Hct 40.4 MCV 101.5 H MCH 33.4 MCHC 32.9 RDW Std Deviation 51.6 H RDW Coeff of Nemesio 13.8 Plt Count 302 MPV 9.2 Immature Gran % (Auto) 0.0 Neut % (Auto) 51.0 Lymph % (Auto) 32.6 Barnwell % (Auto) 13.2 Eos % (Auto) 1.9 Baso % (Auto) 1.3 Immature Gran # (Auto) 0.00 Neut # (Auto) 1.89 Lymph # (Auto) 1.21 Barnwell # (Auto) 0.49 Eos # (Auto) 0.07 Baso # (Auto) 0.05 Absolute Nucleated RBC Nucleated RBC % (auto) Neutrophils % (Manual) Band Neutrophils % Lymphocytes % (Manual) Prolymphocyte % Reactive Lymphs % (Man) Monocytes % (Manual) Eosinophils % (Manual) Basophils % (Manual) Metamyelocytes % (Man) Myelocytes % (Man) Promyelocytes % (Man) Blast Cells % (Manual) Plasma Cell % (Manual) Other Cells % Nucleated RBC % Neutrophils # (Manual) Band Neutrophils # Total Absolute Neuts Lymphocytes # (Manual) Prolymphocyte # Reactive Lymphs # Total Abs Lymphocytes Monocytes # (Manual) Eosinophils # (Manual) Basophils # (Manual) Metamyelocytes # (Man) Myelocytes # (Manual) Promyelocytes # (Man) Blast Cells # (Man) Plasma Cell # (Manual) Other Cells # Nucleated RBCs # (Man) Hypersegmented Neuts Hyposegmented Neuts Hypogranular Neuts Large Granular Lymphs # Lrg Granular Lymphs Hairy Cells Smudge Cells Toxic Granulation Toxic Vacuolation Dohle Bodies Erica Rods Platelet Estimate Hypogranular Platelets Clumped Platelets Giant Platelets Platelet Satelliting RBC Morphology Polychromasia Hypochromasia Poikilocytosis Basophilic Stippling Anisocytosis Microcytosis Macrocytosis Spherocytes Pappenheimer Bodies Sickle Cells Target Cells Tear Drop Cells Ovalocytes Stomatocytes Vásquez-Munford Bodies Echinocytes Acanthocytes (Spur) Rouleaux RBC Agglutinates Schistocytes RBC Morph Comment Sezary Cell Sodium Potassium Chloride Carbon Dioxide Anion Gap BUN Creatinine Est Cr Clr Drug Dosing Est GFR ( Amer) Est GFR (Non-Af Amer) BUN/Creatinine Ratio Glucose Calcium Total Bilirubin AST ALT Alkaline Phosphatase Total Protein Albumin Globulin Albumin/Globulin Ratio TSH Urine Color Urine Appearance Urine pH Ur Specific [place] Urine Protein Urine Glucose (UA) Urine Ketones Urine Blood Urine Nitrite Urine Bilirubin Urine Urobilinogen Ur Leukocyte Esterase Urine WBC (Auto) Urine RBC (Auto) U Hyaline Cast (Auto) U Epithel Cells (Auto) Urine Bacteria (Auto) Salicylates Urine Opiates Screen Neg Ur Methadone, Qual Neg Acetaminophen Urine Barbiturates Neg Ur Phencyclidine (PCP) Neg U Amphetamin/Meth Scrn Neg MDMA (Ecstasy) Screen Neg U Benzodiazepines Scrn Neg Ur Cocaine Metabolite Neg U Marijuana (THC) Screen Neg Ethyl Alcohol mg/dL < 3.0 01/29/20 14:15 WBC RBC Hgb Hct MCV MCH MCHC RDW Std Deviation RDW Coeff of Nemesio Plt Count MPV Immature Gran % (Auto) Neut % (Auto) Lymph % (Auto) Barnwell % (Auto) Eos % (Auto) Baso % (Auto) Immature Gran # (Auto) Neut # (Auto) Lymph # (Auto) Barnwell # (Auto) Eos # (Auto) Baso # (Auto) Absolute Nucleated RBC Nucleated RBC % (auto) Neutrophils % (Manual) Band Neutrophils % Lymphocytes % (Manual) Prolymphocyte % Reactive Lymphs % (Man) Monocytes % (Manual) Eosinophils % (Manual) Basophils % (Manual) Metamyelocytes % (Man) Myelocytes % (Man) Promyelocytes % (Man) Blast Cells % (Manual) Plasma Cell % (Manual) Other Cells % Nucleated RBC % Neutrophils # (Manual) Band Neutrophils # Total Absolute Neuts Lymphocytes # (Manual) Prolymphocyte # Reactive Lymphs # Total Abs Lymphocytes Monocytes # (Manual) Eosinophils # (Manual) Basophils # (Manual) Metamyelocytes # (Man) Myelocytes # (Manual) Promyelocytes # (Man) Blast Cells # (Man) Plasma Cell # (Manual) Other Cells # Nucleated RBCs # (Man) Hypersegmented Neuts Hyposegmented Neuts Hypogranular Neuts Large Granular Lymphs # Lrg Granular Lymphs Hairy Cells Smudge Cells Toxic Granulation Toxic Vacuolation Dohle Bodies Erica Rods Platelet Estimate Hypogranular Platelets Clumped Platelets Giant Platelets Platelet Satelliting RBC Morphology Polychromasia Hypochromasia Poikilocytosis Basophilic Stippling Anisocytosis Microcytosis Macrocytosis Spherocytes Pappenheimer Bodies Sickle Cells Target Cells Tear Drop Cells Ovalocytes Stomatocytes Vásquez-Munford Bodies Echinocytes Acanthocytes (Spur) Rouleaux RBC Agglutinates Schistocytes RBC Morph Comment Sezary Cell Sodium Potassium Chloride Carbon Dioxide Anion Gap BUN Creatinine Est Cr Clr Drug Dosing Est GFR ( Amer) Est GFR (Non-Af Amer) BUN/Creatinine Ratio Glucose Calcium Total Bilirubin AST ALT Alkaline Phosphatase Total Protein Albumin Globulin Albumin/Globulin Ratio TSH Urine Color Yellow Urine Appearance Clear Urine pH 5.0 Ur Specific [place] 1.013 Urine Protein Negative Urine Glucose (UA) Negative Urine Ketones Trace H Urine Blood Negative Urine Nitrite Negative Urine Bilirubin Negative Urine Urobilinogen Negative Ur Leukocyte Esterase 3+ H Urine WBC (Auto) 10-30 H Urine RBC (Auto) 0-4 U Hyaline Cast (Auto) 1-5 U Epithel Cells (Auto) 20-30 H Urine Bacteria (Auto) Negative Salicylates Urine Opiates Screen Ur Methadone, Qual Acetaminophen Urine Barbiturates Ur Phencyclidine (PCP) U Amphetamin/Meth Scrn MDMA (Ecstasy) Screen U Benzodiazepines Scrn Ur Cocaine Metabolite U Marijuana (THC) Screen Ethyl Alcohol mg/dL Hospital Course (1) Bipolar 1 disorder: 01/29 -spoke with outpatient psychiatrist, Dr. Thomson, who states she has been on lithium for 30 to 40 years. It was stopped by another clinician, possibly her PCP, due to tremor. Still trying to determine whether or not the patient has actually been diagnosed with Parkinson's. disease, and we will attempt to get her outpatient records from [facility] (PCP and neurologist), although patient has not been able to sign releases. -Continue inpatient treatment, file for 303 involuntary commitment. May require medications over objection. Continue private room due to agitation and disorganized, erratic behavior. -Resume home dose of lithium 300 mg at bedtime, as this medication has stabilized her in the past. Continue quetiapine 50 mg at bedtime and 25 mg as needed, as well as trazodone 50 mg at bedtime. She has been refusing oral medications, and received 2 IM doses of ziprasidone in the past 24 hours. -QTC 413 yesterday. Staff have discussed the need for IM antipsychotic medication for behavioral and symptom control with her daughters who are her POA's, and expressed agreement. -If remains on an atypical, will require fasting labs. -Coordinate with the office of aging, determine if she has any other outpatient supports such as a BCM or therapist, and involve family in treatment and discharge planning. (2) Altered mental status: Likely a combination of michelle and delirium. Appreciate hospitalist consult and recommendations regarding her medical conditions. Avoid deliriogenic medications, attempt to resume a regular sleep/wake cycle. (3) Elevated blood pressure reading: Appreciate hospitalist recommendations; amlodipine 5 mg daily started. No history of hypertension, elevated blood pressure readings over the past several days may be due to agitation. (4) Possible urinary tract infection: Positive findings on urinalysis, culture pending. Hospitalist started Ceftin 250 mg twice daily x5 days. Mental Health & Subst Abuse Tx Therapist Name of Therapist: Arleen Guzmán @[facility] Post Discharge Appointments Primary Care Physician Name Of Family Doctor: Jose Caba Smoking Cessation Counseling Tobacco Cessation Medication Prescribed at Discharge: Not Applicable/Non-Smoker Discharge Plan Discharge Items Patient Disposition: Transfer Acute Care Hospital Reason For Visit: BI-POLAR Discharge Diagnosis: - Bipolar disorder Activity: Resume your previous activity Non-emergency contact: Primary Care Provider, Psychiatrist, Therapist and Train Gate Attendant Call non-emergency contact if: you have any medication questions and your symptoms worsen Follow-up/Referrals: Neetu Caruso PA-C [Primary Care Provider] - Diet: Regular Addtl Attending Provider Instructions: SPECIAL CARE INSTRUCTIONS: 1. Follow through with your scheduled aftercare appointments. If unable to keep an appointment, please call to reschedule. 2. Take your medication only as prescribed. Medication should not be changed or stopped without the approval of your doctor. In the event of worsening symptoms or concerns about side effects, contact your doctor immediately. 3. Utilize new healthy coping skills, anger management skills, and stress management skills learned during your hospitalization. Journal feelings and process them with a support person. Identify stressors or situations that may result in relapse, deterioration or inappropriate behaviors and develop a plan to deal with those issues. 4. If your coping skills are ineffective and you are in crisis, contact your outpatient providers for direction. If unable to reach your providers, please call the CAN HELP LINE AT or go to the closest Emergency Room. 5. Avoid alcohol and un-prescribed drugs. 6. You have been provided with the Mental Health Advance Directives Pamphlet for your review. AFTERCARE APPOINTMENTS: * Please call your insurance company prior to your scheduled appointment to confirm your aftercare providers are covered. Take your insurance information to your appointments. WHO TO CALL AND WHEN: Medical Emergencies: For questions or emergencies related to your hospital stay, please contact the Inpatient Behavioral Health Unit at [phone]. A fruit pitter is on-call 11/05 for the Behavioral Health Unit for em ergencies At any time you feel your situation is an emergency, you may also call 911 immediately. Your Discharge Instructions noted above were prepared by provider Dede Márquez PA-C. Pending Studies at Discharge: No Stand-Alone Forms: My Sprinkle, Smoking Cessation, Suicide Prevention Resources Skilled Items Patient informed of condition?: No DNR: No Discharge Level of Care: Other Communicable Disease: No Discharge Prognosis: Deteriorating Lines: None Urinary Catheter: No Medications and DC Order Prescriptions: Discontinued trazodone 50 mg tablet 50 mg PO HS RF: 0 ranitidine HCl 150 mg tablet 150 mg PO BID RF: 0 omeprazole 20 mg capsule,delayed release(DR/EC) 20 mg PO DAILY RF: 0 Zyrtec 10 mg PO DAILY RF: 0 albuterol sulfate 90 mcg/actuation HFA aerosol inhaler 2 puff INHALATION QID PRN (Reason: Shortness Of Breath Or Wheezing) RF: 0 Qvar RediHaler 40 mcg/actuation HFA aerosol breath activated 2 inh INHALATION BID RF: 0 quetiapine 50 mg tablet 50 mg PO HS RF: 0 Discharge Orders: Discharge Order (Routine); Ordered 01/31/20 Ordered By: Dede Márquez Admission Data Admit Date/Time: 01/29/20 17:20 Attending Provider: Luciana Tanner Admit Provider: Luciana Tanner Primary Care Provider: Neetu Caruso Other Providers: Pablo Menard Other Interventions: Discharge Summary Assessment (RN) Last Done: 01/31/20 08:51 DC Date/Time DO NOT enter until pt leaves facility: 01/31/20 09:34 Coding Level of Care Code 29044 D/C day mgmt > 30 min Diagnoses Bipolar 1 disorder F31.9 Altered mental status R41.82 Altered mental status type: unspecified Elevated blood pressure reading R03.0 Possible urinary tract infection R39.89
[2020-01-31] MEDS ORDERED: ZIPRASIDONE 20 MG/ML SDV IM STA (08:40)
[2020-01-31] MEDS ORDERED: PANTOprazole 40 MG TAB PO SCH (09:00)
== END 2020-01-31 09:34 | disposition short-term general hospital (02) | DRG 885 ==
LOC: ED 11:28 → 3S 17:20

== ENCOUNTER 2020-01-31 09:49 | Inpatient (IN) ==
[2020-01-31] MEDS ORDERED: ACETAMINOPHEN 325 MG TAB PO PRN (09:56)
[2020-01-31] MEDS ORDERED: ALBUTEROL 0.083% NEBU SOLN 3 ML VIAL NEB PRN (10:05)
--- NOTE | 2020-01-31 10:11 | History & Physical Report ---
Date of Service January 31, 2020 Assessment & Plan (1) Altered mental status: (2) Bipolar 1 disorder: Recent outpatient medication adjustments with discontinuation of [place] in 11/2019. Pt not taking meds, having AMS, agitation. Pt's sister unable to care for pt at home Pt seen in ER 01/27/2020 and 01/29/2020 for altered mental status, agitation. Work up in ER on 01/27/[address] head and negative chest x-ray, lithium level <0.2, and UA at that time was clear. ER visit 01/29/20 with UA with questionable UTI. no significant electrolyte abnormality, urine drug screen negative, negative salicylates and acetaminophen levels. EKG sinus rhythm with QTc: 413 Admitted to behavioral health unit on 01/29/2020 Psych suspect altered mental status secondary to delirium and michelle. She was restarted on [place] and Seroquel. Pt has required couple doses of IM Geodon for behavioral issues Pt discharged from psych to medicine for BP control as pt refusing oral medications. Pt received Geodon IM prior to being discharged from [facility] to medical floor -One to one observation -Consult psych for further management and assistance Recommend starting Depakote IV 250mg BID scheduled for behavioral issues Recommended [place] 300mg HS and Seroquel 50mg HS and 25mg Q6H prn agitation -Repeat EKG in AM to monitor QTc (3) Elevated blood pressure reading: BP: 168/116 yesterday, 195/110 today. Unable to discern if pt symptomatic secondary to current mental status No reported HTN on outpatient records. Inpatient BP readings in 03/2019 were normal Agitation may be aggravating -Amlodipine 5mg po daily was started yesterday, however pt refusing po meds -Nitro paste 0.5 was placed prior in behavioral health unit prior to pt coming to floor with improvement of BP to 152/88 -Continue nitropaste until pt willing to take oral meds -Amlodipine 5mg daily -Hydralazine 10mg IV Q6H prn SBP>160 -Monitor BP closely (4) UTI (urinary tract infection): 01/27/2020: UA clear 01/29/2020 UA: 3+ leuk esterase, 10-30 WBC, 20-30 epithelial Urine culture: group B beta strep Pt unable to voice if having any urinary symptoms -Recommended Ceftin 500mg BID yesterday, however pt not taking oral medications -Will start Rocephin IV and hold Ceftin (5) Parkinsonism: Prior outpatient concern for gait abnormality. 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 Baseline Cr: 1.1 with baseline GFR in the 50's -Avoid nephrotoxic agents when possible -Monitor renal functions DVT Prophylaxis -Lovenox Follows with Dr Caba for routine care Pt was seen and care coordinated with Dr Menard. See addendum Admission and Anticipated Discharge Date Admission Date: January 31, 2020 History of Present Illness Chief Complaint: Elevated BP Primary Care Provider: Neetu Caruso PA-C Pt is 64 y/o F with PMH bipolar, GERD, CKD III, osteoporosis, asthma, malnutrition now admitted to medical team from behavioral health unit for elevated BP. History obtained from review of inpatient and outpatient records and behavioral health staff. Pt was seen in medical consultation yesterday for BP control and management of other medical issues. She was admitted to behavioral health unit 01/29/2020 for altered mental status, agitation, unable to be cared for by patient's sister. Pt under involuntary commitment by psych. Patient was on long-term lithium which was discontinued in 12/07/2019. Pt had elevated lithium level of 1.7 on 12/02/2019. Patient with history of lithium toxicity in past. Family report pt has not been taking her medications correctly. Yesterday amlodipine was ordered for BP control. Urine culture with group B strep. Ceftin was ordered however pt is refusing all oral medications. Psych believes pt likely has altered mental status secondary to delirium and michelle. She was restarted on [place] and Seroquel. Pt has continued to be agitated, not sleeping, not eating or drinking and refusing oral meds. Pt been yelling and agitated and not able to be redirected. Pt has required IM Geodon. Medical history, medication list, and FH obtained from pt's outpatient records. Unable to obtain any further history or ROS or Social history secondary to pt's current mental status. Allergies Allergy/AdvReac Type Severity Reaction Status Date / Time No Known Allergies Allergy Unknown Verified 01/29/20 14:36 Home Medications Home Medications Medication Instructions Recorded Confirmed Type omeprazole 20 mg PO DAILY 02/18/19 01/31/20 History ranitidine HCl 150 mg PO BID 02/18/19 01/31/20 History trazodone 50 mg PO HS 02/18/19 01/31/20 History Zyrtec 10 mg PO DAILY 01/27/20 01/31/20 History albuterol sulfate 2 puff INHALATION QID PRN 01/30/20 01/31/20 History beclomethasone dipropionate [Qvar 2 inh INHALATION BID 01/30/20 01/31/20 History RediHaler] quetiapine 50 mg PO HS 01/30/20 01/31/20 History Past Med/Surg History Medical History Asthma Bipolar 1 disorder (Acute) CA in situ breast CKD (chronic kidney disease), stage III GERD (gastroesophageal reflux disease) Macrocytosis Osteoporosis Vocal cord bowing Surgical History History of appendectomy Family History Brother Cancer lung cancer Prostate cancer Sister Diabetes Social History Preferred Language: Indonesian Communication Ability: Unable Marker Shipments Required: No Beliefs That Will Affect Care: None marital status: Single Current Living Situation: Alone Other Information That Helps Us Care for You: No Feels Safe at Home: Yes Safety Concerns: Feels Safe At This Time Smoking Status: Former smoker Do You Dip or Chew Tobacco: No ; Second Hand Exposure: No ; Tobacco Cessation Education Requested by Patient: No Hx Alcohol Use: Yes Alcohol type: beer Hx Substance Use: No Review of Systems Review of Systems: Unobtainable due to mental health condition Physical Exam Physical Exam: General: no acute distress at this time, sitting up in bed, is able to be redirected at this time, thin elderly female Head: normocephalic, atraumatic Eyes: PERRL, EOM's intact, conjunctiva non-injected, anicteric ENT: normal inspection external ears, nose, mucous membranes moist Neck: supple, trachea midline Lungs: clear, no respiratory distress, no wheezing/rhonchi/rales CV: RRR, no murmur, no pretibial edema Abd: normal BS, soft, non-tender Ext: no cyanosis, no calf tenderness Neuro: Alert, oriented to her self, does not know her age or birthday, tangental thoughts, repeating the alphabet Skin: warm, dry, right forearm with ecchymosis Results & Data Results & Data ([facility]) Vital Signs (Past 12 Hours) Vital Signs Temp Pulse Resp BP Pulse Ox 01/31/20 09:56 36.5 C 88 18 152/88 H 99 Code Status & VTE Plan VTE Prophylaxis Plan VTE Prophylaxis will be ordered: Yes Supervising Physician Co-Signing Physician Notes Attending Addendum: care coordinated with NAVI Donahue please refer to her notes for full details, I agree with her notes patient seen and examined, records reviewed by myself as well on exam, patient seen with DEV TECHNICAL MGR at bedside, 1:1 observation patient is restless, standing, sitting, opening her mouth, with disorganized thoughts, etc. does not follow commands difficult to obtain ROS although she appears comfortable, not in distress or pain no other signs noted VS noted and reviewed Not oriented , not in distress, speaks in sentences with no effort nor accessory muscle use normal rate, regular rhythm, no murmurs clear breath sounds bilaterally non distended, soft, nontender no bipedal edema, erythema, warmth confused, otherwise no gross neuro deficits ASSESSMENT AND PLAN HYPERTENSIVE URGENCY no history of HTN recommended Amlodipine 5mg po daily while in 3s, patient declining oral meds BP this AM 195/110, asymptomatic transferred to [facility], on Nitropatch, d/c when patient already taking Amlodipine GROUP B STREP UTI on empiric Ceftri Day 1 BIPOLAR 1 DISORDER VPA IV started Seroquel continued [place] discontined monitor other diagnoses and plan of care as per NAVI Donahue notes Pablo Menard MD (1) Altered mental status Altered mental status type: unspecified Qualified Code(s): R41.82 - Altered mental status, unspecified
[2020-01-31] MEDS ORDERED: QUETIAPINE FUMARATE 25 MG TABLET PO PRN (10:15)
[2020-01-31] MEDS: ENOXAPARIN INJ 30 MG/0.3 ML SYR SQ SCH (10:55)
[2020-01-31] MEDS: cefTRIAXone SODIUM 1,000 MG in DEXTROSE 5% 50 ML IV SCH (10:55)
[2020-01-31] MEDS ORDERED: VALPROATE SOD 250 MG in DEXTROSE 5% 50 ML IV SCH (11:00)
--- NOTE | 2020-01-31 11:00 | Psychiatric Consultation ---
Date of Consultation January 31, 2020 Impression / Recommendations Impression 64-year-old female with bipolar 1 who presents manic and delirious in the context of being taken off her lithium, multiple medical problems, and family's inability to manage her at home. She was staying with her sister, who is stating she cannot keep her safe, as the patient was leaving the house in the middle of the night and walking around, is confused, disoriented, not taking oral medications, not sleeping or eating, and has been aggressive and agitated. She was transferred to medicine due to severe HTN and refusal of PO meds. She is on a 303 involuntary commitment and will return to the [facility] once medically stable. (1) Bipolar 1 disorder: - Presenting symptoms likely a combination of michelle and delirium. Appreciate hospitalist consult and recommendations regarding her medical conditions. Avoid deliriogenic medications, attempt to resume a regular sleep/wake cycle. - Her bipolar illness had been stable with lithium for decades, but it was stopped in November due to a tremor and an elevated level, and she also has had issues with medication adherence, stage III CKD and a history of at least two episodes of toxicity, so after discussion with her outpatient psychiatrist would not recommend continuing lithium at this time. She has been started on IV Depakote which is a good alternative choice for a mood stabilizer and has the benefit of IV administration, as she is refusing PO meds. - The office of aging has been involved for the past year, and she was apparently evicted from her apartment at some point. - 303 involuntary commitment granted at hearing today, and may require medications over objection. - Discontinue lithium and hold quetiapine and trazodone (refusing PO meds, quetiapine dose too low to be effective). - May use ziprasidone 5mg IM prn agitation due to michelle/delirium if behavior not responding to de-escalation techniques and placing patient or staff at risk of harm. - QTC 413 on admission. Staff have discussed the need for IM antipsychotic medication for behavioral and symptom control with her daughters who are her POA's, and expressed agreement. Psych History Identifying Data ERIK ELLISON is a 64-year-old F who currently lives in [place] with family, has a history of bipolar disorder type I, and was admitted to the [facility] on 01/29/20 17:20 on a 302 involuntary commitment for erratic behavior, agitation, and disorganization, and family's inability to care for her at home. She was transferred to the hospitalist service today due to hypertensive urgency and refusal of po meds. She is on a 303 involuntary committment to [facility] as of today. Chief Complaint Patient seen today by NAVI Arroyo (see Psychiatric discharge summary for additional information). History of Present Illness Patient seen by myself for admission assessment yesterday, case discussed with her outpatient psychiatrist Dr. Thomson and hospitalist consult discussed with Batsheva Tapia PA-C. Patient transferred to the medical service today due to elevated blood pressure (195/110) and refusal of PO medications. She has been refusing oral medications since presentation to the ER, and has received several doses of ziprasidone IM. She has long standing bipolar disorder type I and had been maintained on lithium for 30-40 years. She has had multiple elevated lithium levels (in 02/2019 when we saw her on the consult service, and again in 11/2019), which led to discontinuation of lithium in 11/2019. She was recently started on low dose trazodone and quetiapine, but family reported they were unsure if she was taking them (may have been over-using trazodone as a week's worth of medication was missing). Discussed with Dr. Thomson and due to concerns she was not taking medications correctly at home and multiple episodes of lit hium toxicity, will not resume lithium at this time. Depakote can be given IV and is a reasonable next step for mood stabilization. Office of Aging has been involved and [facility] has requested a meeting next week for treatment and discharge planning (02/06). Will also need to involve her 2 daughters who are her POAs. Allergies Allergy/AdvReac Type Severity Reaction Status Date / Time No Known Allergies Allergy Unknown Verified 01/29/20 14:36 Home Medications Home Medications Medication Instructions Recorded Confirmed Type omeprazole 20 mg PO DAILY 02/18/19 01/31/20 History ranitidine HCl 150 mg PO BID 02/18/19 01/31/20 History trazodone 50 mg PO HS 02/18/19 01/31/20 History Zyrtec 10 mg PO DAILY 01/27/20 01/31/20 History albuterol sulfate 2 puff INHALATION QID PRN 01/30/20 01/31/20 History beclomethasone dipropionate [Qvar 2 inh INHALATION BID 01/30/20 01/31/20 History RediHaler] quetiapine 50 mg PO HS 01/30/20 01/31/20 History Personal History Beliefs That Will Affect Care: None Patient History Medical History Asthma Bipolar 1 disorder (Acute) CA in situ breast CKD (chronic kidney disease), stage III GERD (gastroesophageal reflux disease) Macrocytosis Osteoporosis Vocal cord bowing Surgical History History of appendectomy Family History Brother Cancer lung cancer Prostate cancer Sister Diabetes Social History Preferred Language: Belarusian Communication Ability: Unable Training Lead Required: No Beliefs That Will Affect Care: None marital status: Single Current Living Situation: Alone Other Information That Helps Us Care for You: No Feels Safe at Home: Yes Safety Concerns: Feels Safe At This Time Smoking Status: Former smoker Do You Dip or Chew Tobacco: No ; Second Hand Exposure: No ; Tobacco Cessation Education Requested by Patient: No Hx Alcohol Use: Yes Alcohol type: beer Hx Substance Use: No Physical Exam Vital Signs (Past 24 Hours): Last Vital Signs Temp 36.5 C 01/31/20 09:56 Pulse 88 01/31/20 09:56 Resp 18 01/31/20 09:56 BP 152/88 H 01/31/20 09:56 Pulse Ox 99 01/31/20 09:56 Results & Data (PSY) Medications Administered Enoxaparin Sodium (Lovenox) 30 mg SQ Q24H BRADY Stop: 03/01/20 09:59 Last Admin: 01/31/20 10:55 Dose: 30 mg Documented by: [id number] Ceftriaxone Sodium 1,000 mg/ (Dextrose) 60 mls @ 100 mls/hr IV Q24H BRADY; Protocol Stop: 02/05/20 09:59 Last Admin: 01/31/20 10:55 Dose: 100 mls/hr Documented by: [id number] Coding Diagnoses Bipolar 1 disorder F31.9
--- NOTE | 2020-01-31 12:59 | Communication Note ---
Date of Service: January 31, 2020 Date of Consultation January 31, 2020 Impression / Recommendations Impression 64-year-old female with bipolar 1 who presents manic and delirious in the co ntext of being taken off her lithium, multiple medical problems, and family's inability to manage her at home. She was staying with her sister, who is stating she cannot keep her safe, as the patient was leaving the house in the middle of the night and walking around, is confused, disoriented, not taking oral medications, not sleeping or eating, and has been aggressive and agitated. She was transferred to medicine due to severe HTN and refusal of PO meds. She is on a 303 involuntary commitment and will return to the [facility] once medically stable. (1) Bipolar 1 disorder: - Presenting symptoms likely a combination of michelle and delirium. Appreciate hospitalist consult and recommendations regarding her medical conditions. Avoid deliriogenic medications, attempt to resume a regular slee p/wake cycle. - Her bipolar illness had been stable with lithium for decades, but it was stopped in November due to a tremor and an elevated level, and she also has had issues with medication adherence, stage III CKD and a history of at least two episodes of toxicity, so after discussion with her outpatient psychiatrist would not recommend continuing lithium at this time. She has been started on IV Depakote which is a good alternative choice for a mood stabilizer and has the benefit of IV administration, as she is refusing PO meds. - The office of aging has been involved for the past year, and she was apparently evicted from her apartment at some point. - 303 involuntary commitment granted at hearing today, and may require medications over objection. - Discontinue lithium and hold quetiapine and trazodone (refusing PO meds, quetiapine dose too low to be effective). - May use ziprasidone 5mg IM prn agitation due to michelle/delirium if behavior not responding to de-escalation techniques and placing patient or staff at risk of harm. - QTC 413 on admission. Staff have discussed the need for IM antipsychotic medication for behavioral and symptom control with her daughters who are her P OA's, and expressed agreement. Psych History Identifying Data ERIK ELLISON is a 64-year-old F who currently lives in [place] with family, has a history of bipolar disorder type I, and was admitted to the [facility] on 01/29/20 17:20 on a 302 involuntary commitment for erratic behavior, agitation, and disorganization, and family's inability to care for her at home. She was transferred to the hospitalist service today due to hypertensive urgency and refusal of po meds. She is on a 303 involuntary commitment to [facility] as of today. Chief Complaint Patient seen today by NAVI Arroyo (see Psychiatric discharge summary for additional information). History of Present Illness Patient seen by myself for admission assessment yesterday, case discussed with her outpatient psychiatrist Dr. Thomson and hospitalist consult discussed with Batsheva Tapia PA-C. Patient transferred to the medical service today due to elevated blood pressure (195/110) and refusal of PO medications. She has been refusing oral medications since presentation to the ER, and has received several doses of ziprasidone IM. She has long standing bipolar disorder type I and had been maintained on lithium for 30-40 years. She has had multiple elevated lithium levels (in 02/2019 when we saw her on the consult service, and again in 11/2019), which led to discontinuation of lithium in 11/2019. She was recently started on low dose trazodone and quetiapine, but family reported they were unsure if she was taking them (may have been over-using trazodone as a week's worth of medication was missing). Discussed with Dr. Thomson and due to concerns she was not taking medications correctly at home and multiple episodes of lithium toxicity, will not resume lithium at this time. Depakote can be given IV and is a reasonable next step for mood stabilization. Office of Aging has been involved and [facility] has requested a meeting next week for treatment and discharge planning (02/06). Will also need to involve her 2 daughters who are her POAs. Allergies Home Medications Medication Instructions Recorded Confirmed Type omeprazole 20 mg PO DAILY 02/18/19 01/31/20 History ranitidine HCl 150 mg PO BID 02/18/19 01/31/20 History trazodone 50 mg PO HS 02/18/19 01/31/20 History Zyrtec 10 mg PO DAILY 01/27/20 01/31/20 History albuterol sulfate 2 puff INHALATION QID PRN 01/30/20 01/31/20 History beclomethasone dipropionate [Qvar 2 inh INHALATION BID 01/30/20 01/31/20 History RediHaler] quetiapine 50 mg PO HS 01/30/20 01/31/20 History Patient History Medical History Asthma Bipolar 1 disorder (Acute) CA in situ breast CKD (chronic kidney disease), stage III GERD (gastroesophageal reflux disease) Macrocytosis Osteoporosis Vocal cord bowing Surgical History History of appendectomy Family History Brother Cancer lung cancer Prostate cancer Sister Diabetes Social History Preferred Language: Danish Communication Ability: Unable Service Coordinator Required: No Beliefs That Will Affect Care: None marital status: Single Current Living Situation: Alone Other Information That Helps Us Care for You: No Feels Safe at Home: Yes Safety Concerns: Feels Safe At This Time Smoking Status: Former smoker Do You Dip or Chew Tobacco: No ; Second Hand Exposure: No ; Tobacco Cessation Education Requested by Patient: No Hx Alcohol Use: Yes Alcohol type: beer Hx Substance Use: No Vital Signs (Past 24 Hours): Last Vital Signs Temp 36.5 C 01/31/20 09:56 Pulse 88 01/31/20 09:56 Resp 18 01/31/20 09:56 BP 152/88 H 01/31/20 09:56 Pulse Ox 99 01/31/20 09:56 Coding Diagnoses Bipolar 1 disorder F31.9
[2020-01-31] MEDS: NITROGLYCERIN 2% OINTMENT 30GM TUBE EXT SCH ×2 (14:13→20:44)
[2020-01-31] MEDS ORDERED: OLANZapine 10 MG/2.1 ML SDV IM STA (19:03)
[2020-01-31] MEDS ORDERED: OLANZapine 10 MG/2.1 ML SDV IM ONE (20:45)
[2020-01-31] MEDS: FAMOTIDINE 20 MG TAB PO SCH (20:47)
[2020-01-31] MEDS: QUETIAPINE FUMARATE 25 MG TABLET PO SCH (20:48)
[2020-01-31] MEDS ORDERED: LITHIUM CARBONATE 300 MG TAB PO SCH (21:00)
[2020-01-31] MEDS: VALPROATE SOD 250 MG in DEXTROSE 5% 50 ML IV SCH (21:28)
[2020-02-01] MEDS ORDERED: OLANZapine 10 MG/2.1 ML SDV IM PRN (01:05)
[2020-02-01] MEDS ORDERED: OLANZapine 10 MG/2.1 ML SDV IM STA (01:06)
[2020-02-01] MEDS: NITROGLYCERIN 2% OINTMENT 30GM TUBE EXT SCH ×4 (02:42→20:16)
[2020-02-01] MEDS: FAMOTIDINE 20 MG TAB PO SCH (07:40)
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
[2020-02-01] MEDS ORDERED: PANTOprazole 40 MG TAB PO SCH (09:00)
[2020-02-01] MEDS ORDERED: FLUTICASONE FUROATE 100MCG 14 PUFFS/INHALER INH SCH (09:00)
[2020-02-01] MEDS ORDERED: AMLODIPINE BESYLATE 5 MG TAB PO SCH (09:00)
[2020-02-01] MEDS: VALPROATE SOD 250 MG in DEXTROSE 5% 50 ML IV SCH ×2 (09:05→21:00)
[2020-02-01] MEDS: cefTRIAXone SODIUM 1,000 MG in DEXTROSE 5% 50 ML IV SCH (10:04)
[2020-02-01] MEDS: ENOXAPARIN INJ 30 MG/0.3 ML SYR SQ SCH (10:05)
[2020-02-01] MEDS ORDERED: OLANZapine 10 MG/2.1 ML SDV IM ONE (12:00)
[2020-02-01] MEDS: OLANZapine 10 MG/2.1 ML SDV IM PRN ×2 (12:06→20:53)
--- NOTE | 2020-02-01 13:28 | Hospitalist Progress Note ---
Date of Service February 01, 2020 Assessment & Plan (1) Bipolar 1 disorder: noted to be in severe manic episode with behavioral disturbance , delusion restless constantly changing position form standing to sitting/pacing in room -with disorganized thoughts, etc. pt refusing nursing care , meds , lab draws , vital checks refusing food requiring 1:1 observation with MACHINERY DISMANTLER , as pt is at risk to herself , lack of safety concern , wandering Psych following MALNUTRITION : Underweight, BMI 15.1 due to underlying severe Psychiatric illness lack of self care not eating or drinking for sometime HTN : BP was elevated -due to agitation refusing to taKe PO Norvasc took off Nitro patch D/c tele as pt been taking off monitor urine culture : lactobacillus : normal balbina no evidence of UTI abx D/marvin DISPOSITION ; pt will return to Psych unit for continues care Admission and Anticipated Discharge Date Admission Date: January 31, 2020 Subjective remains very confused disoriented not aware of person or place refusing meds,lab draws , nursing care , refusing to eat requiring 1:1 observation for lack of safety concern , wandering off Review of Systems Review of Systems: Unobtainable due to mental health condition (confused , disoriented ) Physical Exam Constitutional: + ill appearing, + thin and + behavioral limitations (significant behavioural disturbance , refusing nursing care ) Eyes: sclerae not anicteric Respiratory: + abnormal respiratory effort, no respiratory distress and no cough Cardiovascular: RRR, no murmur, no edema Rate/Rhythm: regular rate Gastrointestinal (Abdomen): Inspection/Auscultation: normal bowel sounds Percussion/Palpation: abdomen soft; abdomen nontender Neurologic: moves all extremities; no focal motor deficits Psychiatric: Orientation: alert; + not oriented x 3 Apperance: + disheveled Eye Contact: + poor eye contact Motor Behavior: + psychomotor agitation Speech: + pressured speech Affect: + labile affect (manic episode ) Mood: + anxious mood Thought Process: + flight of ideas and + incoherent thought process Thought Content: + preoccupation Hallucinations: + auditory hallucinations Cognition: + recent memory not intact Insight: + poor insight Judgement: + poor judgement Results & Data Results & Data ([facility]) Vital Signs (Past 12 Hours) Vital Signs Temp Pulse Resp BP Pulse Ox 02/01/20 10:48 145 H 02/01/20 10:46 36.5 C 80 22 145/85 H 74 L
[2020-02-01 17:14] LABS: Hematocrit (blood only) 39.5 % (37-47); Mean Corpuscular Hemoglobin 33.5 pg (25-34); Mean Corpuscular Hgb Conc 32.9 g/dL (32-36); Mean Corpuscular Volume 101.8 fL (80-100); Mean Platelet Volume 10.1 fL (7.4-10.4); Platelet Count 362 K/uL (130-400); RDW Coefficient of Variation 14.2 % (11.5-14.5); RDW Standard Deviation 52.3 fL (36.4-46.3); Red Blood Count 3.88 M/uL (4.2-5.4); White Blood Count 7.51 K/uL (4.8-10.8)
[2020-02-01 17:21] LABS: BUN Creatinine Ratio 19.4 (10-20); Calcium 10.1 mg/dl (8.5-10.1); Creatinine Clr Calc Pharmacy 31.2 ml/min; Est GFR (African American) 59.1; Potassium 3.5 mmol/L (3.5-5.1)
[2020-02-01] MEDS: cloNIDine HCL 0.1 MG TAB PO SCH (20:13)
[2020-02-01] MEDS: QUETIAPINE FUMARATE 25 MG TABLET PO SCH (20:13)
[2020-02-02] MEDS: HydrALAZINE HCL 20 MG/ML VIAL IV PRN ×2 (00:21→21:32)
[2020-02-02] MEDS: OLANZapine 10 MG/2.1 ML SDV IM PRN ×3 (01:00→22:26)
[2020-02-02] MEDS: NITROGLYCERIN 2% OINTMENT 30GM TUBE EXT SCH ×4 (02:31→21:32)
[2020-02-02] MEDS: VALPROATE SOD 250 MG in DEXTROSE 5% 50 ML IV SCH (08:00)
--- NOTE | 2020-02-02 13:48 | Psychiatric Progress Note ---
Date of Service February 02, 2020 Impression / Recommendations (1) Bipolar 1 disorder: 01/31 - Presenting symptoms are most likely a combination of michelle and delirium. Continue to avoid deliriogenic medications, attempt to resume a regular sleep/wake cycle. - Her bipolar illness had been stable with lithium for decades, but it was stopped in November due to a tremor and an elevated level, and she also has had issues with medication adherence, stage III CKD and a history of at least two episodes of toxicity, so after discussion with her outpatient psychiatrist do not recommend continuing lithium at this time. She has been started on IV Depakote which is a good alternative choice for a mood stabilizer and has the benefit of IV administration, as she is refusing PO meds. She will need a trough level and dose adjustment. - 303 involuntary commitment granted 01/31/2020. She is requiring medications over objection, as she lacks capacity for informed consent regarding medications, and her untreated condition places both herself and staff at imminent risk of harm. She has been combative, striking staff, and persistent agitation led to hypertensive urgency. She continues to refuse oral medications, and is receiving IV Depakote and IM Zyprexa. - Discontinued lithium and hold quetiapine and trazodone (refusing PO meds, quetiapine dose too low to be effective). - She has been receiving olanzapine 2.5 mg IM as needed for agitation, combative behavior, but the dose appears to be too low as she has required multiple injections, so will increase to 5mg. - QTC 413 on admission. Staff have discussed the need for IM antipsychotic medication for behavioral and symptom control with her daughters who are her POA's, and expressed agreement. - The Office of Aging has been involved in trying to assist her in finding housing, and a treatment/discharge planning meeting has been scheduled with them and [facility] for 02/07/2020 at 9 AM. 02/01 - Agree with analysis of presentation given above. While it does seem that patient's michelle may be, in part, contributing to her noncompliance and behavioral concerns - the need for IV medications to manage unstable blood pressure, additional medical concerns, and her bipolar illness require ongoing medical admission. Medical clearance to consider psychiatric re-admission would include patient's ability to cooperate with taking necessary medications by mouth, which she is not yet able to demonstrate at this time - Will increase valproic acid to 500mg BID IV in order to target mood instability. Valproic Acid level was obtained on 01/31 at 17:13, earlier time than a true 12-hour trough - value was 40. - Can continue olanzapine 5mg IM for acute agitation and combative behavior. - Meeting to discuss housing and treatment/discharge plan is scheduled for 02/07/2020 Interval History Identifying Information ERIK ELLISON is a 64-year-old F who currently lives in [place] with family, has a history of bipolar disorder type I, and was admitted to the [facility] on 01/29/20 17:20 on a 302 involuntary commitment for erratic behavior, agitation, and disorganization, and family's inability to care for her at home. She was transferred to the hospitalist service on 01/30 due to hypertensive urgency and refusal of po meds. She is on a 303 involuntary commitment to [facility] as of 01/30. Chief Complaint "I don't know why they said that. Sometimes. The whale or the fish...not on the salad." Review of Systems Notes Patient unable to participate in full review of systems due to level of disorganization. She did not verbalize any physical complaints at time of encounter. Subjective Subjective Patient's case was reviewed and discussed during morning report with psychiatric nurse liaison and supervising psychiatrist. Progress notes and recent diagnostic studies reviewed. Case was also discussed with primary attending in order to coordinate care between her psychiatric presentation and concern for worsening medical issues if patient is not cooperative with medications. Pt was seen today to assess progress since admission, this PA-C was accompanied by our psychiatric liaison for this visit. Pt was alert, and attempted to engage in conversation but was nonsensical for the duration of our conversation. She could at least report knowledge she is "in the hospital", and awareness she is at "[facility]." When asked the date, the patient states "Isn't it 12." Pt believes our most recent holiday was ", I think." Pt was unable to participate with more coherent thoughts. At one point, patient stated she was seeing a whale in her room, then began talking about whales, fish, and salads. Pt did occasionally get up from bed, but maintained cooperative behavior - not pulling at IVs, keeping her (minimal) clothing on, and did not wander around the room. She did not verbalize any questions or concerns during our visit. Pt was informed about plans to titrate her valproic acid. Physical Exam Psychiatric Orientation: alert, oriented to person and oriented to place (aware she is at [facility]); + not oriented to time ("it must be what, 12 or somethings", thinks we just celebrated Thanksgiving) Apperance: + disheveled (short hair is appearing unkempt); + inappropriately dressed (wearing t-shirt backwards, only underwear and socks on bottom half) Eye Contact: + poor eye contact (easily distracted, only brief moments of direct eye contact ) sporadic and bizarre motor movements: intermittently pointing, removing sheets/placing them back over herself, staring at her fingers, smiling oddly Speech: + pressured speech Affect: + labile affect Thought Process: + incoherent thought process; + thought process not goal directed and + thought process not linear or logical Cognition: + recent memory not intact, + attention not intact and + language not intact Insight: + severely impaired insight Judgement: + severely impaired judgement Vital Signs (Past 24 Hours) Last Vital Signs Temp 37.1 C 02/02/20 07:10 Pulse 98 H 02/02/20 07:10 Resp 16 02/02/20 07:10 BP 151/95 H 02/02/20 07:10 Pulse Ox 93 02/02/20 07:10 Results & Data ([facility]) Laboratory Results Laboratory Results - last 24 hr 02/01/20 02/01/20 02/01/20 13:45 13:45 17:13 WBC 7.51 RBC 3.88 L Hgb 13.0 Hct 39.5 MCV 101.8 H MCH 33.5 MCHC 32.9 RDW Std Deviation 52.3 H RDW Coeff of Nemesio 14.2 Plt Count 362 MPV 10.1 Sodium 143 Potassium 3.5 Chloride 109 H Carbon Dioxide 28 Anion Gap 5.0 BUN 22 H Creatinine 1.13 Est Cr Clr Drug Dosing 31.2 Est GFR ( Amer) 59.1 Est GFR (Non-Af Amer) 51.0 BUN/Creatinine Ratio 19.4 Glucose 112 H Calcium 10.1 Valproic Acid 40 L Current Inpatient Medications Current Inpatient Medications: Current Inpatient Medications Clonidine HCl (Catapres) 0.1 mg PO HS [facility] Stop: 03/02/20 20:59 Last Admin: 02/01/20 20:13 Dose: 0.1 mg Documented by: Hydralazine HCl (Hydralazine Hcl) 10 mg IV Q6H PRN PRN Reason: Hypertension Stop: 03/01/20 10:14 Last Admin: 02/02/20 00:21 Dose: 10 mg Documented by: Valproic Acid 250 mg/ Dextrose 52.5 mls @ 55 mls/hr IV Q12H [facility] Stop: 03/01/20 20:59 Last Infusion: 02/02/20 09:34 Dose: Infused Documented by: Nitroglycerin (Nitro-Bid 2%) 0.5 inch EXT Q6H [facility] Stop: 03/01/20 13:59 Last Admin: 02/02/20 13:38 Dose: 0.5 inch Documented by: Olanzapine (Zyprexa) 5 mg IM Q4H PRN PRN Reason: Anxiety/Agitation Stop: 03/02/20 01:04 Last Admin: 02/02/20 01:00 Dose: 5 mg Documented by: Quetiapine Fumarate (Seroquel) 50 mg PO HS [facility] Stop: 03/01/20 20:59 Last Admin: 02/01/20 20:13 Dose: 50 mg Documented by: Quetiapine Fumarate (Seroquel) 25 mg PO Q6H PRN PRN Reason: Agitation Stop: 03/01/20 10:14 Last Admin: 02/02/20 00:07 Dose: 25 mg Documented by:
--- NOTE | 2020-02-02 18:31 | Hospitalist Progress Note ---
Date of Service February 02, 2020 Assessment & Plan (1) Bipolar 1 disorder: noted to be in severe manic episode with behavioral disturbance , delusion restless constantly changing position form standing to sitting/pacing in room -with disorganized thoughts, etc. pt refusing nursing care , meds , lab draws , vital checks refusing food requiring 1:1 observation with NATIONAL STORMWATER LEADER , as pt is at risk to herself , lack of safety concern , wandering Psych following appreciate input : valproic acid dose increased to 500mg BID IV in order to target mood instability. Valproic Acid level was obtained on 01/31 at 17:13, earlier time than a true 12- hour trough - value was 40. -an continue olanzapine 5mg IM for acute agitation and combative behavior. - Meeting to discuss housing and treatment/discharge plan is scheduled for 02/07/2020 MALNUTRITION : Underweight, BMI 15.1 due to underlying severe Psychiatric illness lack of self care not eating or drinking for sometime HTN : BP was elevated -due to agitation refusing to taKe PO Norvasc took off Nitro patch D/c tele as pt been taking off monitor urine culture : lactobacillus : normal balbina no evidence of UTI abx D/marvin DISPOSITION ; pt will return to Psych unit for continues care Admission and Anticipated Discharge Date Admission Date: January 31, 2020 Subjective remains agitated manic episode , not following command requiring 1:1 observation for agiatation continued on IV Valproic acid per Nursing pt was able to sleep /rest for few hours in morning Physical Exam Constitutional: + ill appearing, + thin and + behavioral limitations (significant behavioural disturbance , refusing nursing care ) Eyes: sclerae not anicteric Respiratory: + abnormal respiratory effort, no respiratory distress and no cough Cardiovascular: RRR, no murmur, no edema Rate/Rhythm: regular rate Gastrointestinal (Abdomen): Inspection/Auscultation: normal bowel sounds Percussion/Palpation: abdomen soft; abdomen nontender Neurologic: moves all extremities; no focal motor deficits Psychiatric: Orientation: alert; + not oriented x 3 Apperance: + disheveled Eye Contact: + poor eye contact Motor Behavior: + psychomotor agitation Speech: + pressured speech Affect: + labile affect (manic episode ) Mood: + anxious mood Thought Process: + flight of ideas and + incoherent thought process Thought Content: + preoccupation Hallucinations: + auditory hallucinations Cognition: + recent memory not intact Insight: + poor insight Judgement: + poor judgement Results & Data Results & Data ([facility]) Vital Signs (Past 12 Hours) Vital Signs Temp Pulse Resp BP Pulse Ox 02/02/20 07:10 37.1 C 98 H 16 151/95 H 93
[2020-02-02] MEDS: VALPROATE SOD 500 MG in DEXTROSE 5% 50 ML IV SCH (20:59)
[2020-02-02] MEDS: cloNIDine HCL 0.1 MG TAB PO SCH (21:32)
[2020-02-03] MEDS: NITROGLYCERIN 2% OINTMENT 30GM TUBE EXT SCH ×4 (02:07→20:01)
[2020-02-03] MEDS: OLANZapine 10 MG/2.1 ML SDV IM PRN ×2 (06:21→17:20)
[2020-02-03] MEDS: VALPROATE SOD 500 MG in DEXTROSE 5% 50 ML IV SCH ×2 (08:25→20:42)
--- NOTE | 2020-02-03 12:35 | Communication Note ---
Date of Service: February 03, 2020 Over-night progress reviewed in nursing notes. Reviewed hospitalist progress notes and remainder of patient chart. Observed valproic acid level order for 02/03 @1200. Timing of this order was adjusted by this CANDY. Recommended best indication of drug level is by obtaining a 12-hour trough. Given patient's BID dosing of valproic acid, would suggest drawing this lab at 08:00 assuming patient will receive her morning infusion of the medication around 09:00. This has been updated and lab will now be drawn at 08:00. Suggest continuing this schedule for future drug levels in order to obtain the most accurate result. No changes to previous psychiatric recommendations at this time. Will continue to round on patient as a consult service and would appreciate any updates in the interim.
--- NOTE | 2020-02-03 18:10 | Hospitalist Progress Note ---
Date of Service February 03, 2020 Assessment & Plan (1) Bipolar 1 disorder: noted to be in severe manic episode with behavioral disturbance , delusion restless constantly changing position form standing to sitting/pacing in room -with disorganized thoughts, etc. pt refusing nursing care , meds , lab draws , vital checks refusing food requiring 1:1 observation with PRESCRIPTION EYEGLASS MAKER , as pt is at risk to herself , lack of safety concern , wandering Psych following appreciate input : valproic acid dose increased to 500mg BID IV in order to target mood instability. Depakote level 59 Lab ordered for Valproic acid level tomorrow AM - continue olanzapine 5mg IM for acute agitation and combative behavior. - MALNUTRITION : Underweight, BMI 15.1 due to underlying severe Psychiatric illness lack of self care not eating or drinking for sometime HTN : situational BP was elevated -due to agitation /blood pressure remains in 120-130 while pt is calm and resting doubt will need Antihypertensive once Manic episode is well controlled urine culture : lactobacillus : normal balbina no evidence of UTI abx D/marvin DISPOSITION ; pt will return to Psych unit for continues care once able to follow instructions , taking medications by mouth Admission and Anticipated Discharge Date Admission Date: January 31, 2020 Subjective mental status remains unchanged requiring 1:1 observations for safety Physical Exam Constitutional: + ill appearing, + thin and + behavioral limitations (significant behavioural disturbance , refusing nursing care ) Eyes: sclerae not anicteric Respiratory: + abnormal respiratory effort, no respiratory distress and no cough Cardiovascular: RRR, no murmur, no edema Rate/Rhythm: regular rate Gastrointestinal (Abdomen): Inspection/Auscultation: normal bowel sounds Percussion/Palpation: abdomen soft; abdomen nontender Neurologic: moves all extremities; no focal motor deficits Psychiatric: Orientation: alert; + not oriented x 3 Apperance: + disheveled Eye Contact: + poor eye contact Motor Behavior: + psychomotor agitation Speech: + pressured speech Affect: + labile affect (manic episode ) Mood: + anxious mood Thought Process: + flight of ideas and + incoherent thought process Thought Content: + preoccupation Hallucinations: + auditory halluc inations Cognition: + recent memory not intact Insight: + poor insight Judgement: + poor judgement Results & Data Results & Data ([facility]) Vital Signs (Past 12 Hours) Vital Signs Pulse Resp BP Pulse Ox 04/17/20 15:30 111 H 18 137/80 96
[2020-02-03] MEDS: cloNIDine HCL 0.1 MG TAB PO SCH (20:01)
[2020-02-04] MEDS: NITROGLYCERIN 2% OINTMENT 30GM TUBE EXT SCH ×4 (01:52→20:20)
[2020-02-04] MEDS: VALPROATE SOD 500 MG in DEXTROSE 5% 50 ML IV SCH (07:38)
[2020-02-04] MEDS: HydrALAZINE HCL 20 MG/ML VIAL IV PRN (07:38)
[2020-02-04] MEDS ORDERED: ZIPRASIDONE 20 MG/ML SDV IM PRN (11:46)
--- NOTE | 2020-02-04 11:59 | Psychiatric Progress Note ---
Date of Service February 04, 2020 Impression / Recommendations Impression 64 yo female with bipolar I disorder, severe behavioral disturbance and medical complications, some of which directly related to her agitation. She is severely malnourished, unwilling to take adequate PO hydration, and is being managed on med floor due to hypertensive urgency. Her QTc reviewed on last EKG. No response to prn antipsychotic. Still low therapeutic on valproate. I agree with previous opinions on consult service re: meds over objection and upon review of chart appears may have received more sustained response to Geodon IM. Will d/c Zyprexa in favor of standing BID until agitation improved with additional prn. Updated Dr. Rubin who supports plan. I feel her depakote should also be increased by 125 mg to get level closer to 100. Will not add a standing benztropine order given age and anticholinergic side effect but certainly monitor for dystonia. Tolerated 10 mg previously. Will discuss/defer QTc monitoring to medical. Interval History Identifying Information ERIK ELLISON is a 64-year-old F who currently lives in [place] with family, has a history of bipolar disorder type I, and was admitted to the [facility] on 01/29/20 17:20 on a 302 involuntary commitment for erratic behavior, agitation, and disorganization, and family's inability to care for her at home. She was transferred to the hospitalist service on 01/30 due to hypertensive urgency and refusal of po meds. She is on a 303 involuntary commitment to [facility] as of 01/30. Reviewed Chief Complaint "get out", then throwing pieces of items off her bed Review of Systems Notes patient is unable to complete Subjective Subjective Patient was seen & assessed and interval progress reviewed with liaison and 1-on-1. Chart reviewed following sign out from primary consult service. Patient has remained agitated with very poor PO intake, still refusing PO meds and last bp 173/112, p=98, probably due to level of agitation. She has received prn Zypre xa IM 2-3 times a day with little benefit. She throws things at staff and is currently on kneeling on her bed barely clothed. Depakote level this am 66. Physical Exam Psychiatric Orientation: + not oriented x 3 and + uncooperative Apperance: + disheveled Eye Contact: + poor eye contact Motor Behavior: + psychomotor agitation Speech: + pressured speech (loud/angry) Affect: + irritable affect Mood: + irritable mood Thought Process: + thought process not linear or logical Thought Content: + paranoid unable to assess SI/HI due to gross disorganization unclear, picking at bed clothes Cognition: + remote memory not intact and + attention not intact Insight: + severely impaired insight Judgement: + severely impaired judgement Vital Signs (Past 24 Hours) Last Vital Signs Temp 36.6 C 02/04/20 07:28 Pulse 98 H 02/04/20 07:28 Resp 16 02/04/20 07:28 BP 173/112 H 02/04/20 07:37 Pulse Ox 96 02/04/20 07:28 Results & Data ([facility]) Laboratory Results Laboratory Results - last 24 hr 02/03/20 02/04/20 19:03 07:57 Valproic Acid 81 66 Current Inpatient Medications Current Inpatient Medications: Current Inpatient Medications Clonidine HCl (Catapres) 0.1 mg PO HS [facility] Stop: 03/02/20 20:59 Last Admin: 02/03/20 20:01 Dose: 0.1 mg Documented by: Hydralazine HCl (Hydralazine Hcl) 10 mg IV Q6H PRN PRN Reason: Hypertension Stop: 03/01/20 10:14 Last Admin: 02/04/20 07:38 Dose: 10 mg Documented by: Valproic Acid 500 mg/ Dextrose 55 mls @ 55 mls/hr IV DAILY [facility] Stop: 03/06/20 08:59 Valproic Acid 625 mg/ Dextrose 56.25 mls @ 55 mls/hr IV HS [facility] Stop: 03/05/20 20:59 Nitroglycerin (Nitro-Bid 2%) 0.5 inch EXT Q6H [facility] Stop: 03/01/20 13:59 Last Admin: 02/04/20 07:38 Dose: 0.5 inch Documented by: Ziprasidone (Geodon) 10 mg IM BID [facility] Stop: 03/05/20 11:19 Ziprasidone (Geodon) 10 mg IM Q8 PRN PRN Reason: Agitation Stop: 03/05/20 13:59
[2020-02-04] MEDS: ZIPRASIDONE 20 MG/ML SDV IM SCH ×2 (12:05→20:31)
--- NOTE | 2020-02-04 17:14 | Hospitalist Progress Note ---
Date of Service February 04, 2020 Assessment & Plan (1) Bipolar 1 disorder: presented with severe manic episode with behavioral disturbance , delusion restless constantly changing position form standing to sitting/pacing in room -with disorganized thoughts, etc. requiring 1:1 observation with [employer] , as pt is at risk to herself , lack of safety concern , wandering Psych following appreciate input : valproic acid dose increased to 500mg IV BID cont to follow Depakot level - continue olanzapine 5mg IM for acute agitation and combative behavior. - MALNUTRITION : Underweight, BMI 15.1 due to underlying severe Psychiatric illness lack of self care not eating or drinking for sometime HTN : situational BP was elevated -due to agitation /blood pressure remains in 120-130 while pt is calm and resting doubt will need Antihypertensive once Manic episode is well controlled urine culture : lactobacillus : normal balbina no evidence of UTI abx D/marvin DISPOSITION ; pt will return to Psych unit for continues care once able to follow instructions , taking medications by mouth Admission and Anticipated Discharge Date Admission Date: January 31, 2020 Subjective slept most part of the day less manic today still requiring 1:1 for safety Physical Exam Constitutional: + ill appearing, + thin and + behavioral limitations (significant behavioural disturbance , refusing nursing care ) Eyes: sclerae not anicteric Respiratory: + abnormal respiratory effort, no respiratory distress and no cough Cardiovascular: RRR, no murmur, no edema Rate/Rhythm: regular rate Gastrointestinal (Abdomen): Inspection/Auscultation: normal bowel sounds Percussion/Palpation: abdomen soft; abdomen nontender Neurologic: moves all extremities; no focal motor deficits Psychiatric: Orientation: alert; + not oriented x 3 Mood: + anxious mood Thought Process: + flight of ideas and + incoherent thought process Insight: + poor insight Judgement: + poor judgement Results & Data Results & Data ([place]) Vital Signs (Past 12 Hours) Vital Signs Temp Pulse Resp BP Pulse Ox 02/04/20 14:13 165/95 H 02/04/20 07:37 173/112 H 02/04/20 07:28 36.6 C 98 H 16 96
[2020-02-04] MEDS: cloNIDine HCL 0.1 MG TAB PO SCH (20:20)
[2020-02-04] MEDS: VALPROATE SOD IV SCH (20:21)
[2020-02-04] MEDS: DEXTROSE 5% IV SCH (20:21)
[2020-02-05] MEDS: NITROGLYCERIN 2% OINTMENT 30GM TUBE EXT SCH ×2 (02:03→08:11)
[2020-02-05] MEDS: VALPROATE SOD 500 MG in DEXTROSE 5% 50 ML IV SCH (08:15)
[2020-02-05] MEDS: ZIPRASIDONE 20 MG/ML SDV IM SCH ×2 (08:17→21:11)
--- NOTE | 2020-02-05 10:49 | Psychiatric Progress Note ---
Date of Service February 05, 2020 Impression / Recommendations Impression 64 yo female with bipolar I disorder, severe behavioral disturbance and medical complications, some of which directly related to her agitation. She is severely malnourished, unwilling to take adequate PO hydration, and is being managed on med floor due to hypertensive urgency. Her QTc reviewed on last EKG, unfortunately >500. No response to prn Zyprexa. Still low therapeutic on valproate. I agree with previous opinions on consult service re: meds over objection and upon review of chart appears may have received more sustained response to Geodon IM. Continue Geodon 10 mg IM BID with hopes she will improve to point can take dissolvable meds, benefit of Geodon outweigh risks at this time. If condition deteriorates again, consider agitated catatonia (waxes/wanes, usually causes dysautonomia rather than persistently elevated BP). Note clonidine patch could also be increased if BP/P allows for behavioral control. At this time, avoiding IV benzos as can be disinhibiting in elderly with AMS but would be treatment of choice for catatonia. Interval History Identifying Information ERIK ELLISON is a 64-year-old F who currently lives in [place] with family, has a history of bipolar disorder type I, and was admitted to the [facility] on 01/29/20 17:20 on a 302 involuntary commitment for erratic behavior, agitation, and disorganization, and family's inability to care for her at home. She was transferred to the hospitalist service on 01/30 due to hypertensive urgency and refusal of po meds. She is on a 303 involuntary commitment to [facility] as of 01/30. Re-reviewed Chief Complaint "You saw my he had the flu". Review of Systems Notes she denies muscle pain or tightness, exhibits good jaw movement, tongue protrudes midline without tremor. Subjective Subjective Patient was seen & assessed and interval progress reviewed with nursing, 1-on-1 and liaison. Erik received 2 doses of Geodon 10 mg IM as scheduled yesterday. Sleep and BP appear slightly improved. She is less agitated this am, readily redirectible around her IV site. She did refuse BP last check but is requesting food (big crunchy apple, mac and cheese). Her speech is closer to baseline. Physical Exam Psychiatric Orientation: alert Eye Contact: + fair eye contact Motor Behavior: no abnormal motor movements closer to baseline affect inappropriate to situation elevated Thought Process: + tangential thought process and + concrete thought process Thought Content: not paranoid no evidence of thoughts to harm self or others, ate 1/2 oatmeal (yesterday was throwing breakfast) Hallucinations: no auditory hallucinations and no visual hallucinations Cognition: + attention not intact Insight: + severely impaired insight Judgement: + severely impaired judgement Vital Signs (Past 24 Hours) Last Vital Signs Temp 36.7 C 02/05/20 00:59 Pulse 90 02/05/20 00:59 Resp 16 02/05/20 00:59 BP 147/97 H 02/05/20 00:59 Pulse Ox 100 02/05/20 00:59 Results & Data ([facility]) Current Inpatient Medications Current Inpatient Medications: Current Inpatient Medications Clonidine HCl (Catapres) 0.1 mg PO HS [facility] Stop: 03/02/20 20:59 Last Admin: 02/04/20 20:20 Dose: 0.1 mg Documented by: Hydralazine HCl (Hydralazine Hcl) 10 mg IV Q6H PRN PRN Reason: Hypertension Stop: 03/01/20 10:14 Last Admin: 02/04/20 07:38 Dose: 10 mg Documented by: Valproic Acid 500 mg/ Dextrose 55 mls @ 55 mls/hr IV Q24H [facility] Stop: 03/06/20 08:59 Last Infusion: 02/05/20 09:24 Dose: Infused Documented by: Valproic Acid 625 mg/ Dextrose 56.25 mls @ 55 mls/hr IV [facility] Stop: 03/05/20 20:59 Last Infusion: 02/04/20 21:49 Dose: Infused Documented by: Nitroglycerin (Nitro-Bid 2%) 0.5 inch EXT Q6H [facility] Stop: 03/01/20 13:59 Last Admin: 02/05/20 08:11 Dose: 0.5 inch Documented by: Ziprasidone (Geodon) 10 mg IM BID [facility] Stop: 03/05/20 11:19 Last Admin: 02/05/20 08:17 Dose: 10 mg Documented by: Ziprasidone (Geodon) 10 mg IM Q8 PRN PRN Reason: Agitation Stop: 03/05/20 13:59
[2020-02-05] MEDS: ONDANSETRON INJ 2 MG/ML 2 ML VIAL IV PRN (16:01)
--- NOTE | 2020-02-05 18:53 | Hospitalist Progress Note ---
Date of Service February 05, 2020 Assessment & Plan (1) Bipolar 1 disorder: noted to be in severe manic episode with behavioral disturbance , delusion restless constantly changing position form standing to sitting/pacing in room -with disorganized thoughts, etc. symptoms been gradually improving requiring 1:1 observation with [employer] , as pt is at risk to herself , lack of safety concern , wandering Psych following appreciate input : valproic acid dose increased to 500mg BID IV in order to target mood instability. Depakote level 59 Lab ordered for Valproic acid level tomorrow AM - continue olanzapine 5mg IM for acute agitation and combative behavior. - MALNUTRITION : Underweight, BMI 15.1 due to underlying severe Psychiatric illness lack of self care not eating or drinking for sometime HTN : situational BP was elevated -due to agitation /blood pressure remains in 120-130 while pt is calm and resting doubt will need Antihypertensive once Manic episode is well controlled urine culture : lactobacillus : normal balbina no evidence of UTI abx D/marvin DISPOSITION ; pt will return to Psych unit for continues care once able to follow instructions , taking medications by mouth Admission and Anticipated Discharge Date Admission Date: January 31, 2020 Subjective more co-operative today following instructions less agitation noted no auditory or visual hallucination Review of Systems Review of Systems: All systems reviewed & are unremarkable except as noted in HPI & below Physical Exam Constitutional: + ill appearing, + thin and + behavioral limitations (significant behavioural disturbance , refusing nursing care ) Eyes: sclerae not anicteric Respiratory: + abnormal respiratory effort, no respiratory distress and no cough Cardiovascular: RRR, no murmur, no edema Rate/Rhythm: regular rate Gastrointestinal (Abdomen): Inspection/Auscultation: normal bowel sounds Percussion/Palpation: abdomen soft; abdomen nontender Neurologic: moves all extremities; no focal motor deficits Psychiatric: Orientation: alert and oriented to person; + not oriented to place and + not oriented to time Eye Contact: + poor eye contact Motor Behavior: + psychomotor agitation Speech: + pressured speech Mood: + anxious mood Hallucinations: no auditory hallucinations and no visual hallucinations Insight: + poor insight Results & Data Results & Data ([facility]) Vital Signs (Past 12 Hours) Vital Signs Temp Pulse Resp BP Pulse Ox 02/05/20 14:39 36.5 C 94 H 18 105/63 95
[2020-02-05] MEDS: VALPROATE SOD IV SCH (21:10)
[2020-02-05] MEDS: DEXTROSE 5% IV SCH (21:10)
[2020-02-05] MEDS: cloNIDine HCL 0.1 MG TAB PO SCH (21:10)
[2020-02-06] MEDS: ZIPRASIDONE 20 MG/ML SDV IM SCH ×2 (07:40→20:54)
[2020-02-06] MEDS: VALPROATE SOD 500 MG in DEXTROSE 5% 50 ML IV SCH (07:41)
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
[2020-02-06] MEDS: VALPROIC ACID SOLN 500 MG/10 ML UDC PO SCH (20:47)
[2020-02-06] MEDS: cloNIDine HCL 0.1 MG TAB PO SCH (20:51)
[2020-02-07] MEDS: VALPROIC ACID SOLN 500 MG/10 ML UDC PO SCH ×2 (07:56→20:25)
[2020-02-07] MEDS: ZIPRASIDONE 20 MG/ML SDV IM SCH (07:56)
--- NOTE | 2020-02-07 11:32 | Hospitalist Progress Note ---
Date of Service February 06, 2020 Assessment & Plan (1) Bipolar 1 disorder: noted to be in severe manic episode with behavioral disturbance , delusion was restless constantly changing position form standing to sitting/pacing in room -with disorganized thoughts, etc. symptoms has improved in past 48 hrs Psych following appreciate input : valproic acid dose increased to 500mg in AM /650 mg in PM Depakote level 97 pt is more co-operative , medications changed to PO MALNUTRITION : Underweight, BMI 15.1 due to underlying severe Psychiatric illness lack of self care per nursing pt been finishing her meals in past 1-2 days as her paranoia has been improving HTN : situational BP remain better /stable as manic episodes are less continue clonidine 0.1 mg HS DISPOSITION ; pt will return to Psych unit for continues care once able to follow instructions , taking medications by mouth Admission and Anticipated Discharge Date Admission Date: January 31, 2020 Subjective late entry : pt was seen on 02/06/20 around 3 pm pt been able to talk coherently spoke with daughter over the phone no visual or auditory hallucination feels off balance no agitation , no manic episode so far Review of Systems Review of Systems: All systems reviewed & are unremarkable except as noted in HPI & below Psychiatric: no paranoia, no hallucinations and no visual hallucinations Physical Exam Constitutional: + ill appearing, + thin and + behavioral limitations (significant behavioural disturbance , refusing nursing care ) Eyes: sclerae not anicteric Respiratory: + abnormal respiratory effort, no respiratory distress and no cough Cardiovascular: RRR, no murmur, no edema Rate/Rhythm: regular rate Gastrointestinal (Abdomen): Inspection/Auscultation: normal bowel sounds Percussion/Palpation: abdomen soft; abdomen nontender Neurologic: moves all extremities; no focal motor deficits Psychiatric: Orientation: alert and oriented to person; + not oriented to place and + not oriented to time Speech: + pressured speech Mood: + anxious mood Hallucinations: no auditory hallucinations and no visual hallucinations Cognition: + recent memory not intact Insight: + poor insight Results & Data Results & Data ([facility]) Vital Signs (Past 12 Hours) Vital Signs Temp Pulse Resp BP Pulse Ox 02/07/20 07:11 36.3 C L 72 18 114/75 98 02/07/20 00:00 36.4 C L 85 18 145/84 H 95
--- NOTE | 2020-02-07 11:42 | Hospitalist Progress Note ---
Date of Service February 07, 2020 Assessment & Plan (1) Bipolar 1 disorder: manic episodes /paranoia has improved markedly as Depakote dose was increased Depakote level with in theraputic range on valproic acid dose to 500mg in AM /650 mg in PM changed to PO pt has been taking her meds accordingly 1: 1 observation d/marvin Psych following appreciate input : MALNUTRITION : Underweight, BMI 15.1 due to underlying severe Psychiatric illness lack of self care /has not been eating or drinking while in the manic episode pts appetite has improved , finishing her meals HTN : situational BP remain better /stable as manic episodes are less continue clonidine 0.1 mg HS DISPOSITION ; pt will return to Psych unit in next 1-2 days as appears to be more improved symptomatically Admission and Anticipated Discharge Date Admission Date: January 31, 2020 Subjective pt noted to be very pleasant and appropriate today per nursing -pt slept through the night finished her breakfast no agitation or paranoia noted taking all PO meds accordingly 1:1 observation will be d/marvin q 15 mins check for safety Review of Systems Review of Systems: All systems reviewed & are unremarkable except as noted in HPI & below Psychiatric: no confusion, no paranoia, no hallucinations and no visual hallucinations Physical Exam Constitutional: + ill appearing and + thin; no acute distress pleasant Eyes: sclerae not anicteric Respiratory: no cough Cardiovascular: RRR, no murmur, no edema Rate/Rhythm: regular rate Gastrointestinal (Abdomen): Inspection/Auscultation: normal bowel sounds Percussion/Palpation: abdomen soft; abdomen nontender Neurologic: moves all extremities; no focal motor deficits Psychiatric: Orientation: alert, oriented to person and oriented to place; + not oriented to time Apperance: + disheveled Eye Contact: + poor eye contact Motor Behavior: + psychomotor agitation Speech: no pressured speech Affect: + flat affect Thought Content: not paranoid Hallucinations: no auditory hallucinations and no visual hallucinations Judgement: + poor judgement Results & Data Results & Data ([facility]) Vital Signs (Past 12 Hours) Vital Signs Temp Pulse Resp BP Pulse Ox 02/07/20 07:11 36.3 C L 72 18 114/75 98 02/07/20 00:00 36.4 C L 85 18 145/84 H 95
[2020-02-07] MEDS ORDERED: ZIPRASIDONE 20 MG/ML SDV IM PRN (14:04)
--- NOTE | 2020-02-07 16:14 | Psychiatric Progress Note ---
Date of Service February 07, 2020 Impression / Recommendations Impression 64-year-old female with bipolar I disorder, severe behavioral disturbance and medical complications, some of which directly related to her agitation. She is severely malnourished, and had been unwilling to take adequate PO hydration or take necessary medications via PO route. Pt was initially admitted psychiatrically, then transferred and managed on med floor due to hypertensive urgency and inability to take PO medications. Reliability of patient's valproic acid level is questionable as timing of many have not been a true 12-hour trough, and she has not likely had the opportunity to reach a steady state on a consistent dose. Would not suggest further increase of valproic acid, and drug level has been ordered fro 02/11. Pt's behavior appears improved overall. Primary concerns prior to medical clearance include consistency with PO medications and ensuring stable gait and independent ambulation. Phone meeting to discuss discharge planning occurred this morning. Additional details provided in separate documentation. (1) Bipolar 1 disorder: 01/31 - Presenting symptoms are most likely a combination of michelle and delirium. Continue to avoid deliriogenic medications, attempt to resume a regular sleep/wake cycle. - Her bipolar illness had been stable with lithium for decades, but it was stopped in November due to a tremor and an elevated level, and she also has had issues with medication adherence, stage III CKD and a history of at least two episodes of toxicity, so after discussion with her outpatient psychiatrist do not recommend continuing lithium at this time. She has been started on IV Depakote which is a good alternative choice for a mood stabilizer and has the benefit of IV administration, as she is refusing PO meds. She will need a trough level and dose adjustment. - 303 involuntary commitment granted 01/31/2020. She is requiring medications over objection, as she lacks capacity for informed consent regarding medications, and her untreated condition places both herself and staff at imminent risk of harm. She has been combative, striking staff, and persistent agitation led to hypertensive urgency. She continues to refuse oral medications, and is receiving IV Depakote and IM Zyprexa. - Discontinued lithium and hold quetiapine and trazodone (refusing PO meds, quetiapine dose too low to be effective). - She has been receiving olanzapine 2.5 mg IM as needed for agitation, combative behavior, but the dose appears to be too low as she has required multiple injections, so will increase to 5mg. - QTC 413 on admission. Staff have discussed the need for IM antipsychotic medication for behavioral and symptom control with her daughters who are her POA's, and expressed agreement. - The [facility] has been involved in trying to assist her in finding housing, and a treatment/discharge planning meeting has been scheduled with them and [facility] ID for 02/07/2020 at 9 AM. 02/01 - Agree with analysis of presentation given above. While it does seem that patient's michelle may be, in part, contributing to her noncompliance and behavioral concerns - the need for IV medications to manage unstable blood pr essure, additional medical concerns, and her bipolar illness require ongoing medical admission. Medical clearance to consider psychiatric re-admission would include patient's ability to cooperate with taking necessary medications by mouth, which she is not yet able to demonstrate at this time - Will increase valproic acid to 500mg BID IV in order to target mood instability. Valproic Acid level was obtained on 01/31 at 17:13, earlier time than a true 12-hour trough - value was 40. - Can continue olanzapine 5mg IM for acute agitation and combative behavior. - Meeting to discuss housing and treatment/discharge plan is scheduled for 02/07/202002/03 - Zyprexa d/c'd in favor of IM Geodon for episodes of acute agitation - ordered standing order for 10mg of Geodon BID - Depakote increased by 125mg (500mg qAM - 625mg qHS) - continues to receive IV 02/04 - Continue Geodon 10mg IM BID; Depakote at 500mg qAM and 625mg qHS. Pt continues to receive all medications IV - If condition deteriorates again, consider agitated catatonia (waxes/wanes, usually causes dysautonomia rather than persistently elevated BP). Note clonidine patch could also be increased if BP/P allows for behavioral control. At this time, avoiding IV benzos as can be disinhibiting in elderly with AMS but would be treatment of choice for catatonia. 02/05 - Pt's condition appears somewhat improved this morning; however, patient continues to receive all medications IV/IM at this time. Would suggest at least offering the patient PO medications at this time, and can provide IV/IM as back- up for refusal of medications - Would request patient to be tolerating PO intake of medications/food for at least 24 hours and demonstrating stability of vital signs (most specifically blood pressure) prior to being considered stable for transfer to a psychiatric unit. - Discharge planning meeting scheduled for tomorrow morning to discuss safety planning and ongoing concerns related to patient's current living situation. 02/06 - See additional documentation regarding discharge/safety planning meeting which occurred this morning - Continue valproic acid, now switched to liquid form to encourage PO intake of food and medications. As valproic acid dosing was just recently increased, and has not yet had opportunity to reach steady state, will cancel valproic acid level for tomorrow morning. Will reschedule the valproic acid level 12-hour trough for 02/11 in order to obtain a more accurate picture of patient's drug levels - Ordered PO ziprasidone 20mg to be given before dinner, again to encourage PO intake. IM ziprasidone remains available prn should it be required for behavioral control or threats to patient's safety or safety of staff - Again, requesting that patient demonstrate that she is agreeable and consistent with PO medications prior to considering psychiatric referral. There is also ongoing concern surrounding patient's ambulation, and would need to ensure gait is steady and patient is able to appropriately ambulate a psychiatric unit prior to considering her medically stable Interval History Identifying Information ERIK ELLISON is a 64-year-old F who currently lives in [place] with family, has a history of bipolar disorder type I, and was admitted to the [facility] on 01/29/20 17:20 on a 302 involuntary commitment for erratic behavior, agitation, and disorganization, and family's inability to care for her at home. She was transferred to the hospitalist service on 01/30 due to hypertensive urgency and refusal of po meds. She is on a 303 involuntary commitment to [facility] as of 01/30. Chief Complaint "Oh, hello." Review of Systems Notes Constitutional: reports fatigue, denies other constitutional symptoms Cardiovascular: denied Respiratory: denied Gastrointestinal: denied Neurological: denied Psychiatric: denies symptoms other than stated above Total of at least 10 systems reviewed, pertinent positives as above and in HPI. Subjective Subjective Patient's case was reviewed and discussed during morning report with supervising psychiatrist and psychiatric nurse liaison. Pt was seen today for follow-up visit to assess progress since medical admission. Discharge/safety planning meeting occurred this morning and involved members of our psychiatric service as well as the Office of Aging and other burger individuals in patient's health and safety. See additional documentation, as this provider did not specifically participate in that meeting. Pt was cooperative with assessment today, though did not seem particularly talkative today. She stated that she is feeling "fine", though admits she is a little tired today. We discussed current treatment plan, which includes consistently taking medications by mouth. Pt states "well, that seems alright." She did not verbalize any specific concerns otherwise. Pt did appear tired and was fighting off sleep during our conversation. She was pleasant and polite, no behavioral concerns observed. Physical Exam Psychiatric Orientation: alert, oriented to person and cooperative; + not oriented to place and + not oriented to time Apperance: appropriately dressed (changed into a new shirt, still wearing only underwear on bottom) and + disheveled (hair appearing unkempt) Eye Contact: + fair eye contact Motor Behavior: no abnormal motor movements (observed while laying in bed) Speech: normal rate/rhythm/volume of speech (brief responses to questions) Affect: + blunted affect (appearing fatigued today) Mood: no depressed mood ("I'm fine") Thought Process: + concrete thought process Thought Content: no delusions Suicidal Thoughts: denies suicidal thoughts Homicidal Thoughts: denies homicidal thoughts Cognition: attention grossly intact and language grossly intact Insight: + limited insight Judgement: + limited judgement Vital Signs (Past 24 Hours) Last Vital Signs Temp 36.4 C L 02/07/20 14:43 Pulse 94 H 02/07/20 14:43 Resp 20 02/07/20 14:43 BP 114/75 02/07/20 07:11 Pulse Ox 97 02/07/20 14:43 Results & Data ([facility]) Current Inpatient Medications Current Inpatient Medications: Current Inpatient Medications Clonidine HCl (Catapres) 0.1 mg PO HS BRADY Stop: 03/02/20 20:59 Last Admin: 02/06/20 20:51 Dose: 0.1 mg Documented by: Ondansetron HCl (Zofran) 4 mg IV Q4H PRN PRN Reason: Nausea Stop: 03/06/20 15:55 Last Admin: 02/05/20 16:01 Dose: 4 mg Documented by: Valproic Acid (Valproic Acid) 500 mg PO DAILY BRADY Stop: 03/08/20 08:59 Last Admin: 02/07/20 07:56 Dose: 500 mg Documented by: Valproic Acid (Valproic Acid) 625 mg PO HS BRADY Stop: 03/07/20 20:59 Last Admin: 02/06/20 20:47 Dose: 625 mg Documented by: Ziprasidone (Geodon) 10 mg IM Q8 PRN PRN Reason: Agitation Stop: 03/05/20 13:59 Ziprasidone (Geodon) 20 mg IM DAILYBD PRN PRN Reason: for PO refusal Stop: 03/08/20 14:03 Ziprasidone (Geodon) 20 mg PO DAILYBD BRADY Stop: 03/08/20 15:29
[2020-02-07] MEDS: cloNIDine HCL 0.1 MG TAB PO SCH (20:25)
[2020-02-08] MEDS ORDERED: MoRPHine SULFATE 4 MG/ML 1 ML CARP\\VIAL IV STA (03:49)
[2020-02-08] MEDS: ONDANSETRON INJ 2 MG/ML 2 ML VIAL IV PRN (06:41)
[2020-02-08] MEDS: VALPROIC ACID SOLN 500 MG/10 ML UDC PO SCH ×2 (08:21→20:41)
--- NOTE | 2020-02-08 15:28 | Hospitalist Progress Note ---
Date of Service February 08, 2020 Assessment & Plan (1) Bipolar 1 disorder: Symptoms of manic episodes /paranoia has improved with depakote Depakote level with in therapeutic range Continue valproic acid 500mg in AM /650 mg in PM changed to PO Psych on board Will need inpatient psych treatment HTN BP fluctuates Seems to be elevated mostly when she agitated BP 161/84 currently Will avoid to check BP when pt agitates Continue clonidine 0.1 mg HS PO, can be increased to 0.2 mg HS if BP not control Continue monitor blood pressure MALNUTRITION : Underweight, BMI 15.1 Due to underlying severe Psychiatric illness Due to poor oral intake related to psychiatric manic episode Abnormal TSH TSH on 01/29/20 was wnl Repeat TSH was 0.052 on 02/08/20 Will need to repeat TSH in 4 weeks DISPOSITION ; Pt is medically to transfer to mental health unit to manage her manic episodes Avoid to check BP while pt agitates Continue monitor blood pressure Admission and Anticipated Discharge Date Admission Date: January 31, 2020 Subjective Pt was seen and examined Lying in bed with no distress Pt is calm and follow commands Denies any chest pain, palpitation, diizziness and SOB Physical Exam Physical Exam: General- No acute distress Head- atraumatic Eyes- PERRL, EOMI, ENT- oropharynx clear Neck- supple, no JVD Lungs- clear to auscultation Heart- regular rhythm; no murmur Abdomen- normal bowel sounds, soft, nontender Extremities- no calf tenderness Neuro- alert, awake, follow commands, move all 4 extremities Skin- warm & dry Results & Data Results & Data ([facility]) Vital Signs (Past 12 Hours) Vital Signs Temp Pulse Resp BP BP Pulse Ox 02/08/20 15:08 102 H 20 187/93 H 95 02/08/20 07:26 36.4 C L 86 18 129/77 99
[2020-02-08 19:33] LABS: Basophils # (auto) 0.02 K/uL (0-0.2); Basophils % (auto) 0.4 %; Eosinophils # (auto) 0.23 K/uL (0-0.5); Eosinophils % (auto) 4.9 %; Hematocrit (blood only) 35.1 % (37-47); Immature Granulocytes # (auto) 0.01 K/uL (0.00-0.02); Immature Granulocytes % (auto) 0.2 %; Lymphocytes # (auto) 1.34 K/uL (1.2-3.4); Lymphocytes % (auto) 28.6 %; Mean Corpuscular Hemoglobin 32.6 pg (25-34); Mean Corpuscular Hgb Conc 31.3 g/dL (32-36); Mean Corpuscular Volume 104.2 fL (80-100); Mean Platelet Volume 9.4 fL (7.4-10.4); Monocytes # (auto) 0.73 K/uL (0.11-0.59); Monocytes % (auto) 15.6 %; Neutrophils # (auto) 2.36 K/uL (1.4-6.5); Neutrophils % (auto) 50.3 %; Platelet Count 247 K/uL (130-400); RDW Coefficient of Variation 13.7 % (11.5-14.5); RDW Standard Deviation 52.2 fL (36.4-46.3); Red Blood Count 3.37 M/uL (4.2-5.4); White Blood Count 4.69 K/uL (4.8-10.8)
[2020-02-08 19:50] LABS: Albumin Level 2.8 gm/dl (3.4-5.0); BUN Creatinine Ratio 32.5 (10-20); Calcium 8.7 mg/dl (8.5-10.1); Creatinine Clr Calc Pharmacy 45.2 ml/min; Est GFR (African American) 92.5; Est GFR (Non-African American) 79.8; Potassium 4.3 mmol/L (3.5-5.1)
[2020-02-08 20:00] LABS: Albumin Globulin Ratio 0.9 (0.9-2); Bilirubin,Total 0.2 mg/dl (0.2-1); Globulin 3.2 gm/dl (2.5-4.0); Thyroid Stimulating Hormone 0.052 uIu/ml (0.300-4.500)
[2020-02-08] MEDS: cloNIDine HCL 0.1 MG TAB PO SCH (20:41)
[2020-02-08 20:47] LABS: Appearance Urine Clear (Clear); Bacteria Urine Automated Negative (Negative); Bilirubin Urine Negative (Negative); Blood Urine Negative (Negative); Cast Urine Automated 0 /lpf (0-5); Color Urine Yellow; Glucose Urine UA Negative (Negative); Ketones Urine Negative (Negative); Leukocyte Esterase Urine Trace (Negative); Nitrite Urine Negative (Negative); Protein Urine Negative (Negative); RBC Urine Automated 0-4 /hpf (0-4); Specific Gravity Urine 1.013 (1.000-1.030); Urobilinogen Urine Negative (Negative); pH Urine 7.5 (4.5-7.5)
[2020-02-09] MEDS: VALPROIC ACID SOLN 500 MG/10 ML UDC PO SCH (08:00)
--- NOTE | 2020-02-09 09:51 | Discharge Summary ---
Date of Service February 09, 2020 Admission HPI Per Admitting Provider Pt is 64 y/o F with PMH bipolar, GERD, CKD III, osteoporosis, asthma, malnutrition now admitted to medical team from behavioral health unit for elevated BP. History obtained from review of inpatient and outpatient records and behavioral health staff. Pt was seen in medical consultation yesterday for BP control and management of other medical issues. She was admitted to behavioral health unit 01/29/2020 for altered mental status, agitation, unable to be cared for by patient's sister. Pt under involuntary commitment by psych. Patient was on long-term lithium which was discontinued in 12/07/2019. Pt had elevated lithium level of 1.7 on 12/02/2019. Patient with history of lithium toxicity in past. Family report pt has not been taking her medications correctly. Yesterday amlodipine was ordered for BP control. Urine culture with group B strep. Ceftin was ordered however pt is refusing all oral medications. Psych believes pt likely has altered mental status secondary to delirium and michelle. She was restarted on Ehrhardt and Seroquel. Pt has continued to be agitated, not sleeping, not eating or drinking and refusing oral meds. Pt been yelling and agitated and not able to be redirected. Pt has required IM Geodon. Medical history, medication list, and FH obtained from pt's outpatient records. Unable to obtain any further history or ROS or Social history secondary to pt's current mental status. Admission Exam Per Admitting Provider General: no acute distress at this time, sitting up in bed, is able to be redirected at this time, thin elderly female Head: normocephalic, atraumatic Eyes: PERRL, EOM's intact, conjunctiva non-injected, anicteric ENT: normal inspection external ears, nose, mucous membranes moist Neck: supple, trachea midline Lungs: clear, no respiratory distress, no wheezing/rhonchi/rales CV: RRR, no murmur, no pretibial edema Abd: normal BS, soft, non-tender Ext: no cyanosis, no calf tenderness Neuro: Alert, oriented to her self, does not know her age or birthday, tangental thoughts, repeating the alphabet Skin: warm, dry, right forearm with ecchymosis Principal Diagnosis Bipolar 1 disorder Hypertension MALNUTRITION Abnormal TSH Discharge Exam General- No acute distress Head- atraumatic Eyes- PERRL, EOMI, ENT- oropharynx clear Neck- supple, no JVD Lungs- clear to auscultation Heart- regular rhythm; no murmur Abdomen- normal bowel sounds, soft, nontender Extremities- no calf tenderness Neuro- alert, awake, follow commands, move all 4 extremities Skin- warm & dry Discharge Data Allergies Allergy/AdvReac Type Severity Reaction Status Date / Time No Known Allergies Allergy Unknown Verified 01/29/20 14:36 Consultations 01/31/20 09:56 Consult Psychiatry Routine 01/31/20 09:58 Consult Case Management - Discharge Planning Routine Hospital Course (1) Bipolar 1 disorder: Symptoms of manic episodes /paranoia has improved with depakote Depakote level with in therapeutic range Continue valproic acid 500mg in AM /650 mg in PM changed to PO Psych on board Will need inpatient psych treatment HTN BP fluctuates Seems to be elevated mostly when she agitated BP 161/84 currently Will avoid to check BP when pt agitates Continue clonidine 0.1 mg HS PO, can be increased to 0.2 mg HS if BP not control Continue monitor blood pressure MALNUTRITION : Underweight, BMI 15.1 Due to underlying severe Psychiatric illness Due to poor oral intake related to psychiatric manic episode Abnormal TSH TSH on 01/29/20 was wnl Repeat TSH was 0.052 on 02/08/20 Will need to repeat TSH in 4 weeks DISPOSITION ; Pt is medically to transfer to mental health unit to manage her manic episodes Avoid to check BP while pt agitates Continue monitor blood pressure Total Time Total Time Spent Total Time Spent (In Minutes): 35 minutes Total Time Includes: Examination of the Patient, Discharge Planning, Medication Reconciliation, Communication With Other Providers and Other Discharge Plan Discharge Items Patient Disposition: Transfer Behavioral Health Fac Reason For Visit: DELIRIUM, HTN Discharge Diagnosis: Bipolar 1 disorder: Hypertension MALNUTRITION Activity: Resume your previous activity Non-emergency contact: Primary Care Provider and Psychiatrist Call non-emergency contact if: you have any medication questions Follow-up/Referrals: Neetu Caruso PA-C [Primary Care Provider] - Diet: Low Sodium (2gm) Addtl Attending Provider Instructions: Follow up with your primary care provider once discharge from the mental health unit Continue monitor your blood pressure Check TSH in 4 weeks to monitor thyroid function Avoid to check blood pressure when Mrs. Marie agitates (Will cause blood pressure to elevate) Fall precaution Pending Studies at Discharge: No Stand-Alone Forms: [facility] Medications and DC Order Prescriptions: New clonidine HCl 0.1 mg Tablet 0.1 mg PO HS Qty: 30 RF: 0 valproic acid 250 mg capsule 625 mg PO BID 30 Days Qty: 150 RF: 0 valproic acid 250 mg capsule 500 mg PO DAILY 30 Days Qty: 60 RF: 0 ziprasidone HCl 20 mg Capsule 20 mg PO DAILYBD Qty: 30 RF: 0 Continued ranitidine HCl 150 mg tablet 150 mg PO BID RF: 0 omeprazole 20 mg capsule,delayed release(DR/EC) 20 mg PO DAILY RF: 0 Zyrtec 10 mg PO DAILY RF: 0 albuterol sulfate 90 mcg/actuation HFA aerosol inhaler 2 puff INHALATION QID PRN (Reason: Shortness Of Breath Or Wheezing) RF: 0 Qvar RediHaler 40 mcg/actuation HFA aerosol breath activated 2 inh INHALATION BID RF: 0 Discontinued trazodone 50 mg tablet 50 mg PO HS RF: 0 quetiapine 50 mg tablet 50 mg PO HS RF: 0 Discharge Orders: Discharge Order (Routine); Ordered 02/09/20 Ordered By: Juma Hendrickson Admission Data Admit Date/Time: 01/31/20 09:56 Attending Provider: Juma Hendrickson Admit Provider: Pablo Menard Primary Care Provider: Neetu Caruso Other Providers: Jaime Prieto ; Kamila Rubin
== END 2020-02-09 11:27 | DRG 885 ==
LOC: 2N 09:49 → SUATTDRO 09:56